=== PATIENT | male | born 1965 | race Caucasian/White ===

== ENCOUNTER 2021-02-13 10:59 | Outpatient (REF) | payer OTHER, SELFPAY ==
[2021-02-13 13:56] LABS: MANUAL DIFF FLAG NO
[2021-02-13 14:02] LABS: Basophils Absolute Auto 0.1 X10*3/uL (0.0-0.2); Basophils Percent Auto 1.2 % (0-2); Eosinophils Absolute Auto 0.3 X10*3/uL (0.0-0.4); Eosinophils Percent Auto 3.3 % (0-4); Hematocrit 49.8 % (42-52); Imm Gran Abs Auto 0.03 X10*3/uL (0.00-0.03); Imm Gran Pct Auto 0.4 % (0.0-0.4); Lymphocytes Absolute Auto 2.2 X10*3/uL (1.2-4.9); Mean Corpuscular HGB Conc 34.1 g/dl (31.0-36.0); Mean Corpuscular Hemoglobin 32.6 pg (27.0-33.0); Mean Corpuscular Volume 95.6 fL (80-98); Mean Platelet Volume 9.6 fL (9.4-12.4); Monocytes Absolute Auto 0.7 X10*3/uL (0.1-1.2); Monocytes Percent Auto 8.9 % (2-11); Neutrophils Absolute Auto 4.3 X10*3/uL (2.0-8.3); Neutrophils Percent Auto 57.2 % (45-73); Platelet Count 187 X10*3/uL (160-400); Red Blood Count 5.21 X10*6/uL (4.60-5.80); Red Cell Distribution Width 13.2 % (11.0-16.0); White Blood Count 7.5 X10*3/uL (4.8-10.8)
[2021-02-13 14:18] LABS: Anion Gap 12 (12-20); Blood Urea Nitrogen 19 mg/dL (9-16); Calcium 8.8 mg/dL (8.4-10.2); Carbon Dioxide 23 mmol/L (22-29); Chloride 109 mmol/L (96-108); Estimated Glomerular Filt Rate 37; Potassium 4.2 mmol/L (3.3-5.1); Sodium 140 mmol/L (135-145)
[2021-02-13 14:47] LABS: Creatinine Urine 42.01 mg/dL; Protein/Creatinine Ratio, Ur 0.43 (<0.2); Total Protein Urine Random 18 mg/dL (<12)
== END 2021-02-13 11:00 | disposition home or self-care (01) ==
LOC: HO.10HDL 10:59
PROVIDERS: Visit Provider Internal Medicine Hypertension Specialist
DX: N18.30 Chronic kidney disease, stage 3 unspecified (principal); R80.9 Proteinuria, unspecified
CPT/HCPCS: 36415; 80051; 82310; 82565; 84156; 84520; 85025

== ENCOUNTER 2022-01-07 13:19 | Outpatient (REF) | payer OTHER, SELFPAY ==
[2022-01-07 14:13] LABS: Anion Gap 14 (12-20); Blood Urea Nitrogen 19 mg/dL (9-16); Calcium 9.4 mg/dL (8.4-10.2); Carbon Dioxide 25 mmol/L (22-29); Chloride 105 mmol/L (96-108); Estimated Glomerular Filt Rate 32; Potassium 4.3 mmol/L (3.3-5.1); Sodium 140 mmol/L (135-145)
[2022-01-07 14:53] LABS: Appearance Urine Clear; Color Urine Yellow; Glucose Urine UA Negative (Negative); Leukocyte Esterase Urine Moderate (2+) (Negative); Nitrite Urine Negative (Negative); Urine Blood Trace (Negative); Urine Ketones Negative (Negative); Urine Protein 30 (1+) mg/dL (Neg-Trace)
[2022-01-07 15:01] LABS: Bacteria Urine Trace (None Seen); Hyaline Casts Urine 0-2 /LPF (0-2); Squamous Epithelial Cell Urine 0-2 /HPF (0-2); UACC Culture Trigger YES; WBC Urine 21-50 /HPF (0-5)
== END 2022-01-07 13:20 | disposition home or self-care (01) ==
LOC: HO.10HDL 13:19
PROVIDERS: Visit Provider Internal Medicine Hypertension Specialist
DX: N18.32 Chronic kidney disease, stage 3b (principal)
CPT/HCPCS: 36415; 80051; 81001; 81003; 82310; 82565; 84520; 87086

== ENCOUNTER 2023-03-29 10:40 | Outpatient (AMB) | payer OTHER, SELFPAY ==
--- NOTE | 2023-03-29 10:54 | HO.NEPHOV ---
HPI HPI Comments History of Present Illness Details Jero is a pleasant middle-aged man with a history of HIV and nephrolithiasis. He has CKD 3 with baseline creatinine of around 2.0. He also has mitral valve prolapse with regurgitation is being followed closely by Cardiology. He has no complaints today. No issues with renal stones recently. Vital Signs 03/29/23 10:56 Height 5 ft 10 in Weight 176 lb 4 oz BMI 25.3 BP 100/60 Blood Pressure Location Lt brachial Position Sitting Pulse 68 Pulse Source Pulse Oximeter Pulse Oximetry (%) 99 Oxygen Delivery Method Room Air Physical Exam Vital Signs: Last Vital Signs Pulse 68 03/29/23 10:56 BP 100/60 03/29/23 10:56 Pulse Ox 99 03/29/23 10:56 Oxygen Delivery Method Room Air 03/29/23 10:56 BMI result Body Mass Index 25.3 Const General: comfortable Nutritional Appearance: well nourished Orientation/consciousness: patient oriented x3 HEENT Head: No normal to inspection Mouth: moist mucous membranes Neck Neck: Yes supple and Yes no JVD Resp Auscultation: clear to auscultation bilaterally, no rales and rub present Cardio Jugular venous distension: no JVD Palpation: no palpable S3 and no palpable S4 Heart sounds: no rubs GI Palpation (GI): Soft to palpation and nontender Percussion: No Fluid wave present General: Yes no CVA tenderness Back/Spine/Pelvis Back: no CVA tenderness Skin General skin exam: no rashes or lesions noted Neuro General: patient oriented x3 Extrem General: Yes no pedal edema and No clubbing Results Reviewed Results Reviewed: Recent creatinine 2.0. Urine protein creatinine ratio 0.43 in August 2022. Assessment & Plan Assessment & Plan (1) CKD (chronic kidney disease) stage 3, GFR 30-59 ml/min: Code(s): N18.30 - Chronic kidney disease, stage 3 unspecified Plan: CKD 3 in a setting of longstanding HIV and nephrolithiasis. Renal function has been stable. He has minimal proteinuria. At this point is no indication for biopsy. Encouraged him to increase fluid intake. Continue to avoid nephrotoxic agents. Continue with ARB for renal protection. We will continue monitor urine protein creatinine excretion and serum creatinine. Blood pressure is acceptable. No evidence of anemia. In fact he has mild polycythemia. Mitral valve prolapse. Being followed by Cardiology. He might require valve surgery. We will follow along with the team. Orders: Orders Creatinine 11 Months N18.30 - Chronic kidney disease, stage 3 unspecified UA and rflx microscopic 11 Months N18.30 - Chronic kidney disease, stage 3 unspecified Creatinine Urine 11 Months N18.30 - Chronic kidney disease, stage 3 unspecified Total Protein Urine Random 11 Months N18.30 - Chronic kidney disease, stage 3 unspecified Electrolytes 11 Months N18.30 - Chronic kidney disease, stage 3 unspecified Blood Urea Nitrogen 11 Months N18.30 - Chronic kidney disease, stage 3 unspecified Calcium 11 Months N18.30 - Chronic kidney disease, stage 3 unspecified Complete Blood Count no Diff 11 Months N18.30 - Chronic kidney disease, stage 3 unspecified Coding Level of Care Code Est Pt Level 4 (85670) Diagnoses CKD (chronic kidney disease) stage 3, GFR 30-59 ml/min N18.30
[2023-03-29 10:56] VITALS: BP 100/60; PULSE 68; O2SAT 99; BMI 25.3
== END 2023-03-29 11:13 | disposition home or self-care (01) ==
PROVIDERS: PCP Internal Medicine; Visit Provider Internal Medicine Hypertension Specialist
DX: N18.30 Chronic kidney disease, stage 3 unspecified (principal); B20 Human immunodeficiency virus [HIV] disease; I34.1 Nonrheumatic mitral (valve) prolapse; Z87.442 Personal history of urinary calculi
CPT/HCPCS: 99214

== ENCOUNTER → 2023-03-29 10:40 | Outpatient (BNVA) | payer OTHER, SELFPAY | PROVIDERS: PCP Internal Medicine; Visit Provider Internal Medicine Hypertension Specialist | DX: N18.30 Chronic kidney disease, stage 3 unspecified (principal) | CPT/HCPCS: 99212 ==

== ENCOUNTER 2024-03-27 10:43 | Outpatient (AMB) | payer OTHER, SELFPAY ==
--- NOTE | 2024-03-27 10:46 | HO.NEPHOV_ITS ---
Vital Signs 03/27/24 10:47 Height 5 ft 10 in Weight 175 lb BMI 25.1 BP 112/72 Blood Pressure Location Lt brachial Position Sitting Pulse 61 Pulse Source Pulse Oximeter Pulse Oximetry (%) 96 Oxygen Delivery Method Room Air Intake Visit Reasons: 1Y follow up/ LVM Bartacker Required: No Accompanied by: Self / Same As Patient Allergies Sulfa (Sulfonamide Antibiotics) Allergy (Severe, Verified 03/27/24 10:49) siezure Medication List - Last Reconciled 03/27/24 by Jun Abarca MD aspirin 81 mg PO DAILY atorvastatin 80 mg PO DAILY dolutegravir-lamivudine 50-300 mg (Dovato) 1 tab PO DAILY metoprolol succinate ER 50 mg PO DAILY tadalafil 20 mg PO DAILY PRN HPI Comments Details: Jero is a pleasant middle-aged man with a history of HIV and nephrolithiasis. He has CKD 3 with baseline creatinine of around 2.0. He also has mitral valve prolapse with regurgitation is being followed closely by Cardiology. He has no complaints today. No issues with renal stones recently. 03/27/24 s/p MV repair in August 2023 Doing well Cr stable at 2.04 [facility] Surgical History (Updated 03/27/24 @ 10:48 by JO-ANN Bernard) History of open heart surgery (~08/2023) Physical Exam Vital Signs: Last Vital Signs Pulse 61 03/27/24 10:47 BP 112/72 03/27/24 10:47 Pulse Ox 96 03/27/24 10:47 Oxygen Delivery Method Room Air 03/27/24 10:47 BMI result Body Mass Index 25.1 Const General: comfortable Nutritional Appearance: well nourished Orientation/consciousness: patient oriented x3 HEENT Head: No normal to inspection Mouth: moist mucous membranes Neck Neck: Yes supple and Yes no JVD Resp Auscultation: clear to auscultation bilaterally and no rales Cardio Jugular venous distension: no JVD Palpation: no palpable S3 and no palpable S4 Heart sounds: no rubs GI Palpation (GI): Soft to palpation and nontender Percussion: No Fluid wave present General: Yes no CVA tenderness Back/Spine/Pelvis Back: no CVA tenderness Skin General skin exam: no rashes or lesions noted Neuro General: patient oriented x3 Extrem General: Yes no pedal edema and No clubbing Results Reviewed Nephrology Results: Hgb 17.0 g/dl (14.0-18.0) 02/13/21 WBC 7.5 X10*3/uL (4.8-10.8) 02/13/21 Plt Count 187 X10*3/uL (160-400) 02/13/21 Sodium 140 mmol/L (135-145) 01/07/22 Potassium 4.3 mmol/L (3.3-5.1) 01/07/22 Chloride 105 mmol/L (96-108) 01/07/22 Carbon Dioxide 25 mmol/L (22-29) 01/07/22 BUN 19 mg/dL (9-16) H 01/07/22 Creatinine 2.15 mg/dL (0.5-1.4) H 01/07/22 Calcium 9.4 mg/dL (8.4-10.2) 01/07/22 Phosphorus 3.3 MG/DL (2.7-4.5) 02/11/20 Urine Protein 30 (1+) mg/dL (Neg-Trace) H 01/07/22 Urine Creatinine 42.01 mg/dL 02/13/21 Protein/Creatinin Ratio 0.43 (<0.2) H 02/13/21 Assessment & Plan Assessment & Plan (1) CKD (chronic kidney disease) stage 3, GFR 30-59 ml/min: Code(s): N18.30 - Chronic kidney disease, stage 3 unspecified Category: Medical Plan: .CKD 3 in a setting of longstanding HIV and nephrolithiasis. Renal function has been stable. Creatinine is 2.05 as of 04/04/2024 He has minimal proteinuria. At this point is no indication for biopsy. Encouraged him to increase fluid intake. Continue to avoid nephrotoxic agents. . We will continue monitor urine protein creatinine excretion and serum creatinine. Blood pressure is acceptable. Polycythemia. Hemoglobin 18.8. We will defer to PCP Mitral valve prolapse. Status post repair in August 2023 Being followed by Cardiology. . Orders: Orders Blood Urea Nitrogen 1 Year N18.30 - Chronic kidney disease, stage 3 unspecified, N18.4 - Chronic kidney disease, stage 4 (severe) Creatinine 1 Year N18.30 - Chronic kidney disease, stage 3 unspecified Total Protein Urine Random 1 Year N18.30 - Chronic kidney disease, stage 3 unspecified Creatinine Urine 1 Year N18.30 - Chronic kidney disease, stage 3 unspecified UA and rflx microscopic 1 Year N18.30 - Chronic kidney disease, stage 3 unspecified Complete Blood Count no Diff 1 Year N18.30 - Chronic kidney disease, stage 3 unspecified Coding Level of Care Code Est Pt Level 4 (72180) Diagnoses CKD (chronic kidney disease) stage 3, GFR 30-59 ml/min N18.30
[2024-03-27 10:47] VITALS: BP 112/72; PULSE 61; O2SAT 96; BMI 25.1
== END 2024-03-27 11:06 | disposition home or self-care (01) ==
PROVIDERS: PCP Internal Medicine; Visit Provider Internal Medicine Hypertension Specialist
DX: N18.30 Chronic kidney disease, stage 3 unspecified (principal)
CPT/HCPCS: 99214

== ENCOUNTER → 2024-03-27 10:43 | Outpatient (BNVA) | payer OTHER, SELFPAY | PROVIDERS: PCP Internal Medicine; Visit Provider Internal Medicine Hypertension Specialist | DX: N18.30 Chronic kidney disease, stage 3 unspecified (principal) | CPT/HCPCS: 99212 ==

== ENCOUNTER 2025-02-18 14:32 | Outpatient (AMB) | payer OTHER, SELFPAY ==
[2025-02-18 14:34] VITALS: BP 92/66; PULSE 63; O2SAT 98; BMI 25.4
--- NOTE | 2025-02-18 14:34 | HO.NEPHOV ---
Vital Signs 02/18/25 14:34 Height 5 ft 10 in Weight 177 lb BMI 25.4 BP 92/66 Blood Pressure Location Lt brachial Position Sitting Pulse 63 Pulse Source Pulse Oximeter Pulse Oximetry (%) 98 Oxygen Delivery Method Room Air Intake Visit Reasons: Jacome F/U week of 01/09 Chief Electrician Required: No Accompanied by: Self / Same As Patient Allergies Sulfa (Sulfonamide Antibiotics) Allergy (Severe, Verified 02/18/25 14:35) aspirus [facility] Medication List - Last Reconciled 02/18/25 by Jun Abarca MD aspirin 81 mg PO DAILY atorvastatin 80 mg PO DAILY dolutegravir-lamivudine 50-300 mg (Dovato) 1 tab PO DAILY metoprolol succinate ER 50 mg PO DAILY tadalafil 20 mg PO DAILY PRN tamsulosin 0.4 mg PO DAILY HPI Comments Details: Jero is a pleasant middle-aged man with a history of HIV and nephrolithiasis. He has CKD 3 with baseline creatinine of around 2.0. He also has mitral valve prolapse with regurgitation is being followed closely by Cardiology. He has no complaints today. No issues with renal stones recently. 03/27/24 s/p MV repair in August 2023 Doing well Cr stable at 2.04 02/18/25 - The patient is a 59-year-old male here for follow up regarding CKD. Recently hospitalized for E coli UTI. - Hospitalized for two days, received IV antibiotics and fluids. - PICC line placed for continued home antibiotic therapy. - Experienced fever and heavy sweating prior to admission. - History of and mitral valve prolapse, managed with metoprolol. - Recent lab work showed proteinuria attributed to infection. - Creatinine level returned to baseline post-infection. Of 2.10 [facility] Surgical History History of open heart surgery (~08/2023) Physical Exam Vital Signs: Last Vital Signs Pulse 63 02/18/25 14:34 BP 92/66 02/18/25 14:34 Pulse Ox 98 02/18/25 14:34 Oxygen Delivery Method Room Air 02/18/25 14:34 BMI result Body Mass Index 25.4 Const General: comfortable Nutritional Appearance: well nourished Orientation/consciousness: patient oriented x3 HEENT Head: No normal to inspection Mouth: moist mucous membranes Neck Neck: Yes supple and Yes no JVD Resp Auscultation: clear to auscultation bilaterally and no rales Cardio Jugular venous distension: no JVD Palpation: no palpable S3 and no palpable S4 Heart sounds: no rubs GI Palpation (GI): Soft to palpation and nontender Percussion: No Fluid wave present General: Yes no CVA tenderness Back/Spine/Pelvis Back: no CVA tenderness Skin General skin exam: no rashes or lesions noted Neuro General: patient oriented x3 Extrem General: Yes no pedal edema and No clubbing Results Reviewed Results Reviewed: January 2025 Serum creatinine 2.10 Nephrology Results: Hgb, (14.0-18.0) 17.0 g/dl 02/13/21 WBC, (4.8-10.8) 7.5 X10*3/uL 02/13/21 Plt Count, (160-400) 187 X10*3/uL 02/13/21 Sodium, (135-145) 140 mmol/L 01/07/22 Potassium, (3.3-5.1) 4.3 mmol/L 01/07/22 Chloride, (96-108) 105 mmol/L 01/07/22 Carbon Dioxide, (22-29) 25 mmol/L 01/07/22 BUN, (9-16) 19 mg/dL H 01/07/22 Creatinine, (0.5-1.4) 2.15 mg/dL H 01/07/22 Calcium, (8.4-10.2) 9.4 mg/dL Δ 01/07/22 Phosphorus, (2.7-4.5) 3.3 MG/DL 02/11/20 Urine Protein, (Neg-Trace) 30 (1+) mg/dL H 01/07/22 Urine Creatinine 42.01 mg/dL 02/13/21 Protein/Creatinin Ratio, (<0.2) 0.43 H 02/13/21 Assessment & Plan Assessment & Plan (1) CKD (chronic kidney disease) stage 3, GFR 30-59 ml/min: Code(s): N18.30 - Chronic kidney disease, stage 3 unspecified Category: Medical Plan: .CKD 3 in a setting of longstanding HIV and nephrolithiasis. Renal function has been stable. Creatinine is 2.10 as of January 2025 He has minimal proteinuria. No monoclonal proteins identified recently. At this point is no indication for biopsy. Encouraged him to increase fluid intake. Continue to avoid nephrotoxic agents. . We will continue monitor urine protein creatinine excretion and serum creatinine. Blood pressure is rather low but asymptomatic Polycythemia. Hemoglobin was 18.8. Currently at 16.2 We will defer to PCP Mitral valve prolapse. Status post repair in August 2023 Being followed by Cardiology. History of renal stones has a follow up with the urologist. No changes were made today. I will be happy to follow him along with the team. . Orders: Orders Basic Metabolic Panel 1 Year N18.30 - Chronic kidney disease, stage 3 unspecified Creatinine Urine 1 Year N18.30 - Chronic kidney disease, stage 3 unspecified Total Protein Urine Random 1 Year N18.30 - Chronic kidney disease, stage 3 unspecified UA and rflx microscopic 1 Year N18.30 - Chronic kidney disease, stage 3 unspecified Coding Level of Care Code Est Pt Level 4 (45239) Diagnoses CKD (chronic kidney disease) stage 3, GFR 30-59 ml/min N18.30
--- OUTSIDE RECORDS SUMMARY | 2025-02-18 16:58 | XMS_ITS | Clinical Summary ---
Author Organization [address] Address [address] [place] [address] Phone Care Team Providers Care Clinical Biostatistics Director Name Role Phone Physician, Pcp Unknown Primary Care Provider Nubia vailable Encounters Date Type Department Care Team Description 01/31/2025 Lab Requisition [facility] [address] [place] [phone] Cynthia Solitario MD Unspecified abnormal cytological findings in specimens from anus 11/28/2024 Lab Requisition [facility] [address] [place] [phone] Cynthia Solitario MD Unspecified abnormal cytological findings in specimens from anus 11/27/2024 Lab Requisition [facility] [address] [place] [phone] Cynthia Solitario MD Contact with and (suspected) exposure to infections with a predominantly sexual mode of transmission; Unspecified abnormal cytological findings in specimens from anus from Last 3 Months Social History Tobacco Use Types Packs/Day Years Used Date Smoking Tobacco: Never Assessed Sex and Gender Information Value Date Recorded Sex Assigned at Not on file Legal Sex Male 10:25 AM EST Gender Identity Not on file Sexual Orientation Not on file Plan of Treatment Health Maintenance Due Date Last Done Comments Colorectal Cancer Screening: Colonoscopy 1965 Zoster Vaccines (1 of 2) 2014 Depression Screening 05/16/2024 Cholesterol Screening (Lipid Panel) 09/28/2024 HIV Screening 09/28/2024 Hepatitis C Screening 09/28/2024 Social Influencers of Health Screening 09/28/2024 COVID-19 Vaccine ( season) 2025 02/10/2022, 03/09/2021, 07/31/2020, Additional history exists Influenza Vaccine (#1) 2025 2, 02/10/2021, 01/24/2020, Additional history exists DTaP,Tdap,and Td Vaccines (4 - Td or Tdap) 02/24/2031 02/24/2021, 10/27/2018, 12/27/1990 RSV Immunization Adult Patients (1 - 1-dose 75+ series) 09/27/2039 MMR Vaccines Aged Out 12/27/1990 No longer eligi ble based on patient's age to complete this topic Hepatitis A Vaccines Aged Out 11/13/2002, 05/08/20 02 No longer eligible based on patient's age to complete this topic HPV Vaccines Aged Out 06/22/2013, 05/04/2013 No lo nger eligible based on patient's age to complete this topic Hepatitis B Vaccines Completed 04/14/2016, 09/29/2015, 08/28/2015, Additional history exists Pneumococcal Vaccine: 50+ Years Completed 07/08/2016, 08/28/2015, 07/30/2015, Additional history exists Meningococcal ACWY Vaccine Aged Out 06/27/2018 N o longer eligible based on patient's age to complete this topic HIB Vaccines Aged Out No longer eligi ble based on patient's age to complete this topic IPV Vaccines Aged Out No longer eligi ble based on patient's age to complete this topic Meningococcal B Vaccine Aged Out No l onger eligible based on patient's age to complete this topic RSV Immunization Patients Under 20 months Aged Out No longer eligible based on patient's age to complete this topic Varicella Vaccines Aged Out No longer eligible based on patient's age to complete this topic Procedures Procedure Name Priority Date/Time Associated Diagnosis Comments THINPREP CYTOLOGY WITH HPV, ANAL Routine 01/29/2025 12:00 AM EDT Unspecified abnormal cytological findings in specimens from anus NON-GYNECOLOGIC CYTOLOGY Routine 01/29/2025 12:00 AM EDT Unspecified abnormal cytological findings in specimens from anus NON-GYNECOLOGIC CYTOLOGY Routine 11/29/2024 3:57 PM EDT Unspecified abnormal cytological findings in specimens from anus CHLAMYDIA TRACHOMATIS AND NEISSERIA GONORRHOEAE PCR Routine 11/27/2024 12:00 AM EDT Contact with and (suspected) exposure to infections with a predominantly sexual mode of transmission Unspecified abnormal cytological findings in specimens from anus from Last 3 Months Results * Thinprep cytology with HPV, anal (01/29/2025 12:00 AM EDT) Scan Result See Scanned Result 02/07/2025 9:19 AM EDT EXTERNAL LAB (NON-INTERFAC ED) Brushing/Spatula Anal structure / Unknown 01/29/2025 01/31/2025 10:36 AM EDT us Cynthia Solitario MD LAB PATHOLOGY ORDERABLES Final Result EXTERNAL LAB (NON-INTERFACED) * Non-gynecologic cytology (01/29/2025 12:00 AM EDT) Only the most recent of2 resultswithin the time period is included. Final Diagnosis Specimen sent to [facility] for Anal cytology with HPV CoTest. Their interpretation is as follows: Anal, swab (ThinPrep): Specimen processed and examined but unsatisfactory for evaluation of epithelial abnormality because of: Scant cellularity. High Risk HPV testing results are POSITIVE. See specific genotype results below. HPV with Genotyping, PCR, ThinPrep: HPV High Risk Type 16, PCR: INVALID HPV High Risk Type 18, PCR: INVALID HPV other High Risk types, PCR: POSITIVE Other High Risk HPV types include: 31, 33, 35, 39, 45, 51, 52, 56, 58, 59, 66, and 68 Report signed electronically by: Jay Thomas MD on 06 Feb 2025 at 16:01 at [facility], [address] [place] [address] (CLIA [id number]) Disclaimer This test has been modified from the weed control inspector's instructions. Its performance characteristics were determined by [facility] in a manner consistent with CLIA requirements. This test has not been cleared or approved by the U.S. Food and Drug Administration Resulted 05 Feb 2025 at 11:34 by [facility], [address] [facility] (CLIA [id number]) Full report attached. 02/14/2025 10:36 AM EDT [facility] at 1036 EDT Gross Description A. Anus, : Received labeled with the patient's name and information is a ThinPrep vial which is submitted to [facility] in [place], [place] for analysis. 02/14/2025 10:36 AM EDT [facility] Disclaimer Unless otherwise specified, all tissue is 10% NB formalin fixed and paraffin embedded. Technical cytopathology services provided by [facility], at [address] [place] [id number] (CLIA # [id number]/Emily Fishman MD, Mail Officer.) 02/14/2025 10:36 AM EDT [facility] Brushing/Spatula Anal structure / Unknown 01/29/2025 01/31/2025 10:32 AM EDT Cynthia Solitario MD LAB CYTOLOGY ORDERABLES F inal Result Performing Organization Address [facility]/State/[facility] Co de Phone Number [facility] [address] [place] [address], * Chlamydia trachomatis and Neisseria gonorrhoeae molecular study (11/27/2024 12:00 AM EDT) Neisseria gonorrhoeae PCR Negative Negative LAB MOLECULAR DIAGNOSTICS METHOD 11/28/2024 9:35 AM EDT [facility] Chlamydia trachomatis PCR Negative Negative LAB MOLECULAR DIAGNOSTICS METHOD 11/28/2024 9:35 AM EDT [facility] Swab Topography unknown / Unknown 11/27/2024 11/27/2024 7:05 PM EDT Cynthia Solitario MD LAB MICROBIOLOGY - GENERA L ORDERABLES Final Result [facility] [place] ([facility] [address] [place] [address], [place] [phone] from Last 3 Months Insurance [facility] Care Teams Clinical Biostatistics Director Relationship Specialty Start Date End Date Physician, Pcp Unknown PCP - General 11/28/24
--- OUTSIDE RECORDS SUMMARY | 2025-02-18 16:58 | XMS_ITS | Encounter Summary ---
Author Organization [facility] Address [address] [place] [address] Care Team Providers Care Appliance Painter And Refinisher Name Role Phone Physician, Pcp Unknown Primary Care Provider Nubia vailable Encounter Details Date Type Department Care Team (Late st Contact Info) Description 01/31/2025 Lab Requisition [facility] [address] [place] [address] Cynthia Solitario MD [address] [place], [place] [phone] Unspecified abnormal cytological findings in specimens from anus Social History Tobacco Use Types Packs/Day Years Used Date Smoking Tobacco: Never Assessed Sex and Gender Information Value Date Recorded Sex Assigned at Not on file Legal Sex Male 10:25 AM EST Gender Identity Not on file Sexual Orientation Not on file documented as of this encounter Plan of Treatment Not on file documented as of this encounter Procedures Procedure Name Priority Date/Time Associated Diagnosis Comments THINPREP CYTOLOGY WITH HPV, ANAL Routine 01/29/2025 12:00 AM EDT Unspecified abnormal cytological findings in specimens from anus NON-GYNECOLOGIC CYTOLOGY Routine 01/29/2025 12:00 AM EDT Unspecified abnormal cytological findings in specimens from anus documented in this encounter Results * Thinprep cytology with HPV, anal (01/29/2025 12:00 AM EDT) Scan Result See Scanned Result 02/07/2025 9:19 AM EDT EXTERNAL LAB (NON-INTERFAC ED) Brushing/Spatula Anal structure / Unknown 01/29/2025 01/31/2025 10:36 AM EDT us Cynthia Solitario MD LAB PATHOLOGY ORDERABLES Final Result EXTERNAL LAB (NON-INTERFACED) * Non-gynecologic cytology (01/29/2025 12:00 AM EDT) Final Diagnosis Specimen sent to [facility] for Anal cytology with HPV CoTest. Their [...] on 06 Feb 2025 at 16:01 at [facility], [address] [place] [address] (CLIA [id number]) Disclaimer This test has been modified from the clinical data management director's instructions. Its performance characteristics were determined by [facility] in a manner consistent with CLIA requirements. This test has not been cleared or approved by the U.S. Food and Drug Administration Resulted 05 Feb 2025 at 11:34 by [facility], [address] [facility] (CLIA [id number]) Full report attached. 02/14/2025 10:[address] [facility] at 1036 EDT Gross Description A. Anus, : Received labeled with the patient's name and information is a ThinPrep vial which is submitted to [facility] in [place], [place] for analysis. 02/14/2025 10:36 AM EDT [facility] Disclaimer Unless otherwise specified, all tissue is 10% NB formalin fixed and paraffin embedded. Technical cytopathology services provided by [facility], at [address] [facility], [place] [address] (CLIA # [id number]/Emily Fishman MD, Hat Body Inspector.) 02/14/2025 10:36 AM EDT [facility] Brushing/Spatula Anal structure / Unknown 01/29/2025 01/31/2025 10:32 AM EDT us Cynthia Solitario MD LAB CYTOLOGY ORDERABLES F inal Result [facility] [address] [place] [address], documented in this encounter Visit Diagnoses Diagnosis Unspecified abnormal cytological findings in specimens from anus documented in this encounter Care Teams Appliance Painter And Refinisher Relationship Specialty Start Date End Date Physician, Pcp Unknown PCP - General 11/28/24 documented as of this encounter
--- OUTSIDE RECORDS SUMMARY | 2025-02-18 16:58 | XMS_ITS | Encounter Summary ---
Author Organization [facility] Address [address] [place] [address] Care Team Providers Care Shoes Salesperson Name Role Phone Physician, Pcp Unknown Primary Care Provider Nubia vailable Encounter Details Date Type Department Care Team (Late st Contact Info) Description 11/28/[address] [facility] - Main Lab [address] [facility] [place] [address] Cynthia Solitario MD [address] [place] [address] Unspecified abnormal cytological findings in specimens from [...] Procedure Name Priority Date/Time Associated Diagnosis Comments NON-GYNECOLOGIC CYTOLOGY Routine 11/29/2024 3:57 PM EDT Unspecified abnormal cytological findings in specimens from anus documented in this encounter Results * Non-gynecologic cytology (11/29/2024 3:57 PM EDT) Final Diagnosis A. Anus, Anal pap, (ThinPrep): Unsatisfactory for evaluation due to scant (nucleated) squamous cellularity. 11/29/2024 3:57 PM EDT [facility] Specimen A Adequacy Specimen processed and examined, but unsatisfactory for eval of abnormal epithelial 11/29/2024 3:57 PM EDT [facility] Gross Description A. Anus, Anal pap: 1 pap vial received, clear fluid, 1 Thin prep. 11/29/2024 3:57 PM EDT [facility] Disclaimer Unless otherwise specified, all tissue is 10% NB formalin fixed and paraffin embedded. Technical cytopathology services provided by [facility], at [address] [place] [address] (CLIA # [id number]/Emily Fishman MD, Plastic Surgery Specialist.) 11/29/2024 3:57 PM EDT [facility] Brushing/Spatula Anal structure / Unknown 11/28/2024 11:25 AM EDT us Cynthia Solitario MD LAB CYTOLOGY ORDERABLES F inal Result [facility] [address] [place] [address], documented in this encounter Visit Diagnoses Diagnosis Unspecified abnormal cytological findings in specimens from anus documented in this encounter Care Teams Shoes Salesperson Relationship Specialty Start Date End Date Physician, Pcp Unknown PCP - General 11/28/24 documented as of this encounter
--- OUTSIDE RECORDS SUMMARY | 2025-02-18 16:59 | XMS_ITS | Data Portability ---
Author Organization [facility], Main Office Address [address] [place] [address] Care Team Providers [facility] Director Name Role Phone ELADIO MARCELO Infectious Disease ONELIA BENAVIDES Kindergarten Teacher Assistant YAMILETH PEÑA Colorectal Surgeon [phone] TOMI NAVAS Gui Developer VAN GALO Primary Care Provider [phone] JUN BLACKMAN Industrial Accountant Assessment Encounter Date Assessment Date Assessment LastModified by Organization Details LastModified Time 01/16/2025 01/16/2025 Pyelitis with bacteremia -Complete ertapenem course (final dose 01/17/2025). -[facility] nurse to remove PICC line after final dose. -Repeat labs: CBC, CMP, LFTs, urine culture, blood culture, PSA (with counseling to avoid ejaculation/bik ing 48h prior). -Monitor for recurrence of fever, chills, dysuria, or flank pain. Renal calculi / mild BPH -Start tamsulosin. -Encourage hydration. -Referral to urology for further management of renal stones and prostate enlargement. Acute kidney injury (improving) -Recheck renal function (BMP). -Referral to nephrology for follow-up and ongoing monitoring. Elevated LFTs -Suspected secondary to ertapenem. -Recheck LFTs 1 week post-completion of antibiotics. -Monitor for symptoms of hepatitis (jaundice, abdominal pain, dark urine). Follow-up care -Referrals to nephrology, urology, and infectious disease reiterated. -Patient instructed to complete antibiotics, keep upcoming appointments, and seek medical attention if new or worsening symptoms arise. Other conditions -Continue CPAP therapy. -Continue management of atrial fibrillation per current regimen. [email or web address] Not available 01/16/2025 09:39:23 Plan of Treatment Reminders Order Date Submit Date Provider Last Modified By Organization Details Last Modified Time Details Appointments PE EST 2024 09:30A M Van Galo MD Not available Not available Not available Lab CMP, serum or plasma 2024 025 [facility] (Centralized Electronic Ordering - All Locations), Patient Can Go To The Location Of Their Choice, [id number] 01/16/2025 11:54:03 PSA, serum or plasma 2024 025 [facility] (Centralized Electronic Ordering - All Locations), Patient Can Go To The Location Of Their Choice, [address] 02/13/2025 12:06:11 urinalysi s complete, reflex culture 2024 025 [facility] (Centralized [facility] Ordering - All Locations), Patient Can Go To The Location Of Their Choice, [id number] 02/13/2025 12:06:10 CBC w/ auto diff 2024 025 [facility] (Centralized [facility] Ordering - All Locations), Patient Can Go To The Location Of Their Choice, [id number] 02/13/2025 12:06:09 culture, blood 2024 025 [facility] ([facility]ized [facility] Ordering - All Locations), Patient Can Go To The Location Of Their Choice, [id number] 01/31/2025 06:09:25 culture, blood 2024 025 [facility] (Centralized Electronic Ordering - All Locations), Patient Can Go To The Location Of Their Choice, [id number] 01/31/2025 06:09:26 alkaline phosphata se isoenzyme s, serum or plasma 2024 025 [facility] (Centralized Electronic Ordering - All Locations), Patient Can Go To The Location Of Their Choice, [id number] 02/13/2025 12:06:11 gamma-glu tamyl transfera se (ggt), serum 2024 025 [facility] (Centralized Electronic Ordering - All Locations), Patient Can Go To The Location Of Their Choice, 02/13/2025 12:06:13 mitochond rial M2 igg Ab, serum 2024 025 [facility] (Centralized Electronic Ordering - All Locations), Patient Can Go To The Location Of Their Choice, 02/13/2025 12:06:12 vitamin D, 25-hydrox y, total, serum 2024 025 [facility] (Centralized [facility] Ordering - All Locations), Patient Can Go To The Location Of Their Choice, 02/13/2025 12:06:12 magnesium , serum or plasma 2023 024 [facility] ([facility]ized [facility] Ordering - All Locations), Patient Can Go To The Location Of Their Choice, 03/27/2024 08:09:43 lipid panel, serum 2023 024 [facility], [address] [place], [address], 03/27/2024 08:09:42 CBC w/ auto diff 2023 024 [facility], [address] [place], [address], 03/27/2024 08:09:41 TSH, ultra-sen sitive, serum 2023 024 [facility], [address] [place], [address], 03/27/2024 08:09:42 CMP, serum or plasma 2023 024 [facility]Y [facility] ([facility]ized [facility] Ordering - All Locations), Patient Can Go To The Location Of Their Choice, 03/27/2024 08:09:40 Referral [facility]rolog[facility] 2024 [facility], [address] , [place], [address], 01/16/2025 10:39:51 infectiou s disease specialis t referral 2024 025 FADYPavan Marcelo MD, [address] [place], [address], 01/16/2025 10:34:24 general surgeon referral - raised wart that has changed, for follow up. 2023 Sawyer [email or web address] [facility], [address] [place] [address] [address] [address], [place], [address], 05/02/2024 11:18:14 Procedures None recorded. Surgeries None recorded. Imaging None recorded. Medication Orders tamsulosi n 0.4 mg capsule 2024 025 [facility] #[id number], [address] [place], [address], 01/16/2025 09:28:25 Patient TargetsNo targets recorded. Patient Instructions Encounter Date Encounter Id Patient Instructions Last Modified By Organization Details Last Modified Time 09/14/2023 [id number] atrial fibrillation: care instructions [email or web address] Not available 09/14/2023 13:29:45 At today's hospi glenn follow up visit, all current and discharge medications (OTC, herbal therapies, supplements) reviewed and reconciled with patient and or caregiver, including potential side effects, drug interactions, instructions, and the consequences of not taking medication. Reviewed potential barriers to medication adherence, such as side effects from medication or cost of medication. [email or web address] Not available 09/14/2023 13:01:23 03/16/2024 [id number] medical record request* [email or web address] Not available 03/19/2024 15:05:32 atrial fibrillation: care instructions [email or web address] Not available 03/16/2024 09:25:17 01/16/2025 [id number] medicines to sakina id with kidney disease: care instructions [email or web address] Not available 01/16/2025 09:28:18 kidney stone: ca re instructions [email or web address] Not available 01/16/2025 09:28:19 learning about d iet for kidney stone prevention [email or web address] Not available 01/16/2025 09:28:18 acute kidney injury: care instructions [email or web address] Not available 01/16/2025 09:28:18 atrial fibrillation: care instructions [email or web address] Not available 01/16/2025 09:28:18 acquired immunodeficiency syndrome (AIDS): care instructions [email or web address] Not available 01/16/2025 09:28:19 At today's [facility] follow up visit, all current and discharge medications (OTC, herbal therapies, supplements) reviewed and reconciled with patient and or caregiver, including potential side effects, drug interactions, instructions, and the consequences of not taking medication. Reviewed potential barriers to medication adherence, such as side effects from medication or cost of medication. 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 Referring Physician: Van Galo [facility], Encounter Date: 03/16/2024 Urologist Referral for Kidne y stone Referring Physician: Van Galo [facility], Encounter Date: 01/16/2025 Infectious Disease Specialis t Referral for Infection caused by extended spectrum beta-lactamase producing Escherichia coli Referring Physician: Van Galo [facility], Encounter Date: 01/16/2025 Results Created Date Observation Date Name Description Value Unit Range Abnormal Flag Note LastModifiedBy Organization Detail LastModifiedTime 03/26/2003/26/2024 CMP14 (REFL EX HGB A1C) glucose 98 mg/dL 70-99 normal Not Available [facility] ([facility]) [address] [place], [address], 03/27/2024 08:09:40 03/26/20 24 03/26/2024 CMP14 (REFL EX HGB A1C) BUN 20 mg/dL 6-24 normal Not Available [facility] ([facility]) [address] [place], [address], 03/27/2024 08:09:40 03/26/20 24 03/26/2024 CMP14 (REFL EX HGB A1C) creatinine 2.06 mg/dL 0.76-1 .27 above high normal Not Available [facility] ([facility]) [address] [facility], [place], [address], 03/27/2024 08:09:40 03/26/20 24 03/26/2024 CMP14 (REFL EX HGB A1C) eGFR 36 mL/mi n/1.7 3 >59 below low normal Not Available [facility] ([facility]) [address] [facility], [place], [address], 03/27/2024 08:09:40 03/26/20 24 03/26/2024 CMP14 (REFL EX HGB A1C) BUN/creatini ne ratio 10 9-20 normal Not Available [facility] ([facility]) [address] [facility], [place], [address], 03/27/2024 08:09:40 03/26/20 24 03/26/2024 CMP14 (REFL EX HGB A1C) sodium 143 mmol/ L 134-14 4 normal Not Available [facility] ([facility]) [address] [facility], [place], [address], 03/27/2024 08:09:40 03/26/20 24 03/26/2024 CMP14 (REFL EX HGB A1C) potassium 4.3 mmol/ L 3.5-5. 2 normal Not Available [facility] ([facility]) [address] [place], [address], 03/27/2024 08:09:40 03/26/20 24 03/26/2024 CMP14 (REFL EX HGB A1C) chloride 106 mmol/ L 96-106 normal Not Available [facility] ([facility]) [address] [place], [address], 03/27/2024 08:09:40 03/26/20 24 03/26/2024 CMP14 (REFL EX HGB A1C) carbon dioxide, total 23 mmol/ L 20-29 normal Not Available [facility] ([facility]) [address] [place], [address], 03/27/2024 08:09:40 03/26/20 24 03/26/2024 CMP14 (REFL EX HGB A1C) calcium 8.6 mg/dL 8.7-10 .2 below low normal Not Available [facility] ([facility]) [address] [place], [address], 03/27/2024 08:09:40 03/26/20 24 03/26/2024 CMP14 (REFL EX HGB A1C) protein, total 6.0 g/dL 6.0-8. 5 normal Not Available [facility] ([facility]) [address] [place], [address], 03/27/2024 08:09:40 03/26/2003/26/2024 CMP14 (REFL EX HGB A1C) albumin 4.0 g/dL 3.8-4. 9 normal Not Available [facility] ([facility]) [address] [place], [address], 03/27/2024 08:09:40 03/26/2003/26/2024 CMP14 (REFL EX HGB A1C) globulin, total 2.0 g/dL 1.5-4. 5 Not Available [facility] ([facility]) [address] [place], [address], 03/27/2024 08:09:40 03/26/2003/26/2024 CMP14 (REFL EX HGB A1C) bilirubin, total 0.9 mg/dL 0.0-1. 2 normal Not Available [facility] ([facility]) [address] [place], [address], 03/27/2024 08:09:40 03/26/20 24 03/26/2024 CMP14 (REFL EX HGB A1C) alkaline phosphatase 82 IU/L 44-121 normal Not Available [facility] ([facility]) [address] [place], [address], 03/27/2024 08:09:40 03/26/20 24 03/26/2024 CMP14 (REFL EX HGB A1C) AST (SGOT) 30 IU/L 0-40 normal Not Available [facility] ([facility]) [address] [place], [address], 03/27/2024 08:09:40 03/26/20 24 03/26/2024 CMP14 (REFL EX HGB A1C) ALT (SGPT) 51 IU/L 0-44 above high normal Not Available [facility] ([facility]) [address] [place], [address], 03/27/2024 08:09:40 03/26/20 24 03/26/2024 CBC WITH DIFFE RENTI AL/PL ATELE T WBC 5.6 x10e3 /uL 3.4-10 .8 normal Not Available [facility] ([facility]) [address] [place], [address], 03/27/2024 08:09:41 03/26/20 24 03/26/2024 CBC WITH DIFFE RENTI AL/PL ATELE T RBC 5.56 x10e6 /uL 4.14-5 .80 normal Not Available [facility] ([facility]) [address] [place], [address], 03/27/2024 08:09:41 03/26/20 24 03/26/2024 CBC WITH DIFFE RENTI AL/PL ATELE T hemoglobin 19.0 g/dL 13.0-1 7.7 above high normal Not Available [facility] ([facility]) [address] [place], [address], 03/27/2024 08:09:41 03/26/20 24 03/26/2024 CBC WITH DIFFE RENTI AL/PL ATELE T hematocrit 56.6 % 37.5-5 1.0 above high normal Not Available [facility] ([facility]) [address] [place], [address], 03/27/2024 08:09:41 03/26/20 24 03/26/2024 CBC WITH DIFFE RENTI AL/PL ATELE T MCV 102 fL 79-97 above high normal Not Available [facility] ([facility]) [address] [facility], [place], [address], 03/27/2024 08:09:41 03/26/20 24 03/26/2024 CBC WITH DIFFE RENTI AL/PL ATELE T MCH 34.2 pg 26.6-3 3.0 above high normal Not Available [facility] ([facility]) [address] [place], [address], 03/27/2024 08:09:41 03/26/20 24 03/26/2024 CBC WITH DIFFE RENTI AL/PL ATELE T MCHC 33.6 g/dL 31.5-3 5.7 normal Not Available [facility] ([facility]) [address] [facility], [place], [address], 03/27/2024 08:09:41 03/26/20 24 03/26/2024 CBC WITH DIFFE RENTI AL/PL ATELE T RDW 14.4 % 11.6-1 5.4 Not Available [facility] ([facility]) [address] [place], [address], 03/27/2024 08:09:41 03/26/20 24 03/26/2024 CBC WITH DIFFE RENTI AL/PL ATELE T platelets 156 x10e3 /uL 150-45 0 normal Not Available [facility] ([facility]) [address] [place], [address], 03/27/2024 08:09:41 03/26/20 24 03/26/2024 CBC WITH DIFFE RENTI AL/PL ATELE T neutrophils 45 % not estab. normal Not Available [facility] ([facility]) [address] [place], [address], 03/27/2024 08:09:41 03/26/20 24 03/26/2024 CBC WITH DIFFE RENTI AL/PL ATELE T lymphs 37 % not estab. normal Not Available [facility] ([facility]) [address] [facility], [place], [address], 03/27/2024 08:09:41 03/26/20 24 03/26/2024 CBC WITH DIFFE RENTI AL/PL ATELE T monocytes 10 % not estab. normal Not Available [facility] ([facility]) [address] [facility], [place], [address], 03/27/2024 08:09:41 03/26/20 24 03/26/2024 CBC WITH DIFFE RENTI AL/PL ATELE T eos 6 % not estab. normal Not Available [facility] ([facility]) [address] [facility], [place], [address], 03/27/2024 08:09:41 03/26/20 24 03/26/2024 CBC WITH DIFFE RENTI AL/PL ATELE T basos 2 % not estab. normal Not Available [facility] ([facility]) [address] [facility], [place], [address], 03/27/2024 08:09:41 03/26/20 24 03/26/2024 CBC WITH DIFFE RENTI AL/PL ATELE T immature cells NURSE WOUND CARE Not Available [facility] ([facility]) [address] [place], [address], 03/27/2024 08:09:41 03/26/20 24 03/26/2024 CBC WITH DIFFE RENTI AL/PL ATELE T neutrophils (absolute) 2.6 x10e3 /uL 1.4-7. 0 normal Not Available [facility] ([facility]) [address] [place], [address], 03/27/2024 08:09:41 03/26/20 24 03/26/2024 CBC WITH DIFFE RENTI AL/PL ATELE T lymphs (absolute) 2.1 x10e3 /uL 0.7-3. 1 normal Not Available [facility] ([facility]) [address] [facility], [place], [address], 03/27/2024 08:09:41 03/26/20 24 03/26/2024 CBC WITH DIFFE RENTI AL/PL ATELE T monocytes(ab solute) 0.6 x10e3 /uL 0.1-0. 9 normal Not Available [facility] ([facility]) [address] [place], [address], 03/27/2024 08:09:41 03/26/20 24 03/26/2024 CBC WITH DIFFE RENTI AL/PL ATELE T eos (absolute) 0.3 x10e3 /uL 0.0-0. 4 normal Not Available [facility] ([facility]) [address] [facility], [place], [address], 03/27/2024 08:09:41 03/26/20 24 03/26/2024 CBC WITH DIFFE RENTI AL/PL ATELE T baso (absolute) 0.1 x10e3 /uL 0.0-0. 2 normal Not Available [facility] ([facility]) [address] [place], [address], 03/27/2024 08:09:41 03/26/20 24 03/26/2024 CBC WITH DIFFE RENTI AL/PL ATELE T immature granulocytes 0 % not estab. Not Available [facility] ([facility]) [address] [place], [address], 03/27/2024 08:09:41 03/26/20 24 03/26/2024 CBC WITH DIFFE RENTI AL/PL ATELE T immature grans (abs) 0.0 x10e3 /uL 0.0-0. 1 Not Available [facility] ([facility]) [address] [place], [address], 03/27/2024 08:09:41 03/26/20 24 03/26/2024 CBC WITH DIFFE RENTI AL/PL ATELE T NRBC NURSE WOUND CARE Not Available [facility] ([facility]) [address] [facility], [place], [address], 03/27/2024 08:09:41 03/26/20 24 03/26/2024 CBC WITH DIFFE RENTI AL/PL ATELE T hematology comments: NURSE WOUND CARE Not Available [facility] ([facility]) [address] [facility], [place], [address], 03/27/2024 08:09:41 03/26/20 24 03/27/2024 LIPID PANEL cholesterol, total 130 mg/dL 100-19 9 normal Not Available [facility] ([facility]) [address] [facility], [place], [address], 03/27/2024 08:09:41 03/26/20 24 03/27/2024 LIPID PANEL triglyceride s 149 mg/dL 0-149 normal Not Available [facility] ([facility]) [address] [facility], [place], [address], 03/27/2024 08:09:41 03/26/20 24 03/27/2024 LIPID PANEL HDL cholesterol 40 mg/dL >39 normal Not Available [facility] ([facility]) [address] [place], [address], 03/27/2024 08:09:41 03/26/20 24 03/27/2024 LIPID PANEL VLDL cholesterol gauri 26 mg/dL 5-40 Not Available [facility] ([facility]) [address] [place], [address], 03/27/2024 08:09:41 03/26/20 24 03/27/2024 LIPID PANEL LDL chol calc ([facility]) 64 mg/dL 0-99 Not Available [facility] ([facility]) [address] [place], [address], 03/27/2024 08:09:41 03/26/2003/27/2024 LIPID PANEL LDL calc comment: NURSE WOUND CARE Not Available [facility] ([facility]) [address] [facility], [place], [address], 03/27/2024 08:09:41 03/26/20 24 03/27/2024 TSH RFX ON ABNOR MAL TO FREE T4 TSH 0.774 uIU/m L 0.450- 4.500 normal Not Available [facility] ([facility]) [address] [facility] [place], [address], 03/27/2024 08:09:42 03/26/2003/27/2024 MAGNE SIUM magnesium 2.4 mg/dL 1.6-2. 3 above high normal Not Available [facility] ([facility]) [address] [facility], [place], [address], 03/27/2024 08:09:43 01/26/2001/31/2025 BLOOD CULTU REBETO blood culture, routine Final report Not Available [facility] ([facility]) [address] [facility], [place], [address], 01/31/2025 06:09:25 01/26/2001/31/2025 BLOOD CULTU REBETO result 1 COMMEN T No aerob ic or anaer obic growt h in five days. Blood volum e colle cted in bottl e(s) was subop timal . Consi catarina recol lecti on to impro ve recov iram. Not Available [facility] ([facility]) [address] [facility], [place], [address], 01/31/2025 06:09:25 01/26/20 25 01/31/2025 BLOOD CULTU REBETO blood culture, routine Final report Not Available [facility] ([facility]) [address] [facility], [place], [address], 01/31/2025 06:09:26 01/26/20 25 01/31/2025 BLOOD CULTU RE, ROUTI NE result 1 COMMEN T No aerob ic or anaer obic growt h in five days. Blood volum e colle cted in bottl e(s) was subop timal . Consi catarina recol lecti on to impro ve recov iram. Not Available [facility] ([facility]) [address] [facility], [place], [address], 01/31/2025 06:09:26 01/26/20 25 01/31/2025 COMP. METAB OLIC PANEL (14) glucose COMMEN T mg/dL Test not perfo rmed. Insuf ficie nt speci men to perfo rm or compl ete alyssa sis. Not Available [facility] ([facility]) [address] [place], [address], 01/31/2025 20:06:16 01/26/20 25 01/31/2025 COMP. METAB OLIC PANEL (14) BUN TNP Test not perfo rmed Not Available [facility] ([facility]) [address] [place], [address], 01/31/2025 20:06:16 01/26/20 25 01/31/2025 COMP. METAB OLIC PANEL (14) creatinine TNP Test not perfo rmed Not Available [facility] ([facility]) [address] [place], [address], 01/31/2025 20:06:16 01/26/20 25 01/31/2025 COMP. METAB OLIC PANEL (14) eGFR NURSE WOUND CARE Not Available [facility] ([facility]) [address] [facility], [place], [address], 01/31/2025 20:06:16 01/26/20 25 01/31/2025 COMP. METAB OLIC PANEL (14) BUN/creatini ne ratio NURSE WOUND CARE Not Available [facility] ([facility]) [address], [place], [address], 01/31/2025 20:06:16 01/26/20 25 01/31/2025 COMP. METAB OLIC PANEL (14) sodium TNP Test not perfo rmed Not Available [facility] ([facility]) [address], [place], [address], 01/31/2025 20:06:16 01/26/20 25 01/31/2025 COMP. METAB OLIC PANEL (14) potassium TNP Test not perfo rmed Not Available [facility] ([facility]) [address], [place], [address], 01/31/2025 20:06:16 01/26/20 25 01/31/2025 COMP. METAB OLIC PANEL (14) chloride TNP Test not perfo rmed Not Available [facility] ([facility]) [address], [place], [address], 01/31/2025 20:06:16 01/26/20 25 01/31/2025 COMP. METAB OLIC PANEL (14) carbon dioxide, total TNP Test not perfo rmed Not Available [facility] ([facility]) [address], [place], [address], 01/31/2025 20:06:16 01/26/20 25 01/31/2025 COMP. METAB OLIC PANEL (14) calcium TNP Test not perfo rmed Not Available [facility] ([facility]) [address], [place], [address], 01/31/2025 20:06:16 01/26/20 25 01/31/2025 COMP. METAB OLIC PANEL (14) protein, total TNP Test not perfo rmed Not Available [facility] ([facility]) [address], [place], [address], 01/31/2025 20:06:16 01/26/20 25 01/31/2025 COMP. METAB OLIC PANEL (14) albumin TNP Test not perfo rmed Not Available [facility] ([facility]) [address] [facility], [place], [address], 01/31/2025 20:06:16 01/26/20 25 01/31/2025 COMP. METAB OLIC PANEL (14) globulin, total NURSE WOUND CARE Not Available [facility] ([facility]) [address] [facility], [place], [address], 01/31/2025 20:06:16 01/26/20 25 01/31/2025 COMP. METAB OLIC PANEL (14) A/G ratio NURSE WOUND CARE Not Available [facility] ([facility]) [address] [facility], [place], [address], 01/31/2025 20:06:16 01/26/20 25 01/31/2025 COMP. METAB OLIC PANEL (14) bilirubin, total TNP Test not perfo rmed Not Available [facility] ([facility]) [address] [facility], [place], [address], 01/31/2025 20:06:16 01/26/20 25 01/31/2025 COMP. METAB OLIC PANEL (14) alkaline phosphatase TNP Test not perfo rmed Not Available [facility] ([facility]) [address] [facility], [place], [address], 01/31/2025 20:06:16 01/26/20 25 01/31/2025 COMP. METAB OLIC PANEL (14) AST (SGOT) TNP Test not perfo rmed Not Available [facility] ([facility]) [address] [facility] [place], [address], 01/31/2025 20:06:16 01/26/20 25 01/31/2025 COMP. METAB OLIC PANEL (14) ALT (SGPT) TNP Test not perfo rmed Not Available [facility] ([facility]) [address] [facility], [place], [address], 01/31/2025 20:06:16 01/26/2001/29/2025 WRITT EN AUTHO RIZAT ION written authorizatio n Commen t Writt en Autho rizat ion Recei dez. Autho rizat ion recei dez from [facility] for Link Reque st on 01-29 Logge d by Karen haro Not Available [facility] ([facility]) [address] [facility], [place], [address], 02/04/2025 14:06:33 01/26/2001/31/2025 WRITT EN AUTHO RIZAT ION written authorizatio n Commen t Writt en Autho rizat ion Recei dez. Autho rizat ion recei dez from [facility] for Link Reque st on 01-31 Logge d by Subhash vidal Not Available [facility] ([facility]) [address] [facility], [place], [address], 01/31/2025 20:06:17 01/26/20 25 01/29/[address] PROBL EM request problem COMMEN T Test not perfo rmed due to the age of this speci men. TEST: 21705 [id number] Retic ulocy te Count Not Available [facility] ([facility]) [address] [facility], [place], [address], 02/04/2025 14:06:34 01/26/20 25 02/04/[address] PROBL EM request problem COMMEN T Test not perfo rmed. Deter iorat ion occur red durin g speci men handl ing. TEST: 79015 8 CMP14 Not Available [facility] ([facility]) [address] [facility], [place], [address], 02/04/2025 10:05:49 01/26/20 25 01/31/[address] PROBL EM request problem COMMEN T Test not perfo rmed. Insuf ficie nt speci men to perfo rm or compl ete alyssa sis. TEST: 14543 0 Comp. Metab olic Panel (14) Not Available [facility] ([facility]) [address] [place], [address], 01/31/2025 20:06:18 01/26/20 25 02/04/2025 CMP14 glucose COMMEN T mg/dL Test not perfo rmed. Deter iorat ion occur red durin g speci men handl ing. Not Available [facility] ([facility]) [address] [place], [address], 02/04/2025 10:05:48 01/26/20 25 02/04/2025 CMP14 BUN TNP Test not perfo rmed Not Available [facility] ([facility]) [address] [place], [address], 02/04/2025 10:05:48 01/26/20 25 02/04/2025 CMP14 creatinine TNP Test not perfo rmed Not Available [facility] ([facility]) [address] [place], [address], 02/04/2025 10:05:48 01/26/20 25 02/04/2025 CMP14 eGFR NURSE WOUND CARE Not Available [facility] ([facility]) [address] [place], [address], 02/04/2025 10:05:48 01/26/20 25 02/04/2025 CMP14 BUN/creatini ne ratio NURSE WOUND CARE Not Available [facility] ([facility]) [address] [place], [address], 02/04/2025 10:05:48 01/26/20 25 02/04/2025 CMP14 sodium TNP Test not perfo rmed Not Available [facility] ([facility]) [address] [place], [address], 02/04/2025 10:05:48 01/26/20 25 02/04/2025 CMP14 potassium TNP Test not perfo rmed Not Available [facility] ([facility]) [address], [place], [address], 02/04/2025 10:05:48 01/26/20 25 02/04/2025 CMP14 chloride TNP Test not perfo rmed Not Available [facility] ([facility]) [address], [place], [address], 02/04/2025 10:05:48 01/26/2002/04/2025 CMP14 carbon dioxide, total TNP Test not perfo rmed Not Available [facility] ([facility]) [address] [facility], [place], [address], 02/04/2025 10:05:48 01/26/20 25 02/04/2025 CMP14 calcium TNP Test not perfo rmed Not Available [facility] ([facility]) [address] [facility], [place], [address], 02/04/2025 10:05:48 01/26/20 25 02/04/2025 CMP14 protein, total TNP Test not perfo rmed Not Available [facility] ([facility]) [address] [facility], [place], [address], 02/04/2025 10:05:48 01/26/2002/04/2025 CMP14 albumin TNP Test not perfo rmed Not Available [facility] ([facility]) [address] [facility], [place], [address], 02/04/2025 10:05:48 01/26/2002/04/2025 CMP14 globulin, total NURSE WOUND CARE Not Available [facility] ([facility]) [address] [facility], [place], [address], 02/04/2025 10:05:48 01/26/20 25 02/04/2025 CMP14 A/G ratio NURSE WOUND CARE Not Availa ble [facility] ([facility]) [address] [place], [address], 02/04/2025 10:05:48 01/26/20 25 02/04/2025 CMP14 bilirubin, total TNP Test not perfo rmed Not Available [facility] ([facility]) [address] [facility], [place], [address], 02/04/2025 10:05:48 01/26/20 25 02/04/2025 CMP14 alkaline phosphatase TNP Test not perfo rmed Not Available [facility] ([facility]) [address] [place], [address], 02/04/2025 10:05:48 01/26/20 25 02/04/2025 CMP14 AST (SGOT) TNP Test not perfo rmed Not Available [facility] ([facility]) [address] [place], [address], 02/04/2025 10:05:48 01/26/20 25 02/04/2025 CMP14 ALT (SGPT) TNP Test not perfo rmed Not Available [facility] ([facility]) [address] [place], [address], 02/04/2025 10:05:48 01/26/20 25 01/29/2025 IMMUN OFIXA TION, SERUM immunoglobul in g, qn, serum COMMEN T mg/dL Test not perfo rmed. Insuf ficie nt speci men to perfo rm or compl ete alyssa sis. Not Available [facility] ([facility]) [address] [place], [address], 02/04/2025 14:06:27 01/26/20 25 01/29/2025 IMMUN OFIXA TION, SERUM immunoglobul in A, qn, serum COMMEN T mg/dL Test not perfo rmed. Insuf ficie nt speci men to perfo rm or compl ete alyssa sis. Not Available [facility] ([facility]) [address] [facility], [place], [address], 02/04/2025 14:06:27 01/26/20 25 01/29/2025 IMMUN OFIXA TION, SERUM immunoglobul in M, qn, serum COMMEN T mg/dL Test not perfo rmed. Insuf ficie nt speci men to perfo rm or compl ete alyssa sis. Not Available [facility] ([facility]) [address] [facility], [place], [address], 02/04/2025 14:06:27 01/26/20 25 02/04/2025 IMMUN OFIXA TION, SERUM immunofixati on result, serum Commen t The immun ofixa tion patte rn appea rs unrem arkab le. Evide nce of monoc lonal prote in is not appar ent. IMMUN OGLOB ULINS WERE UNAVA ILABL E FOR INTER PREAT ION. Not Available [facility] ([facility]) [address] [place], [address], 02/04/2025 14:06:27 01/26/20 25 01/29/2025 FREE K+L LT CHAIN S,QN, S free kappa lt chains,S COMMEN T mg/L Test not perfo rmed. Insuf ficie nt speci men to perfo rm or compl ete alyssa sis. Not Available [facility] ([facility]) [address] [facility], [place], [address], 02/04/2025 14:06:28 01/26/20 25 01/29/2025 FREE K+L LT CHAIN S,QN, S free lambda lt chains,S COMMEN T mg/L Test not perfo rmed. Insuf ficie nt speci men to perfo rm or compl ete alyssa sis. Not Available [facility] ([facility]) [address] [place], [address], 02/04/2025 14:06:28 01/26/2001/29/2025 FREE K+L LT CHAIN S,QN, S kappa/lambda ratio,S COMMEN T Test not perfo rmed. Insuf ficie nt speci men to perfo rm or compl ete alyssa sis. Not Available [facility] ([facility]) [address] [facility], [place], [address], 02/04/2025 14:06:28 01/26/2001/29/2025 VITAM IN B12 AND FOLAT E vitamin B12 COMMEN T pg/mL Test not perfo rmed. Insuf ficie nt speci men to perfo rm or compl ete alyssa sis. Not Available [facility] ([facility]) [address] [facility], [place], [address], 02/04/2025 14:06:29 01/26/2001/29/2025 VITAM IN B12 AND FOLAT E folate (folic acid), serum COMMEN T NG/mL Test not perfo rmed. Insuf ficie nt speci men to perfo rm or compl ete alsysa sis. A serum folat e juan ntrat ion of less than 3.1 ng/mL is consi dered to repre sent clini gauri defic iency . Not Available [facility] ([facility]) [address] [facility], [place], [address], 02/04/2025 14:06:29 01/26/2001/29/2025 HOMOC YST(E )INE homocyst(E)i ne COMMEN T umol/ L Test not perfo rmed. Insuf ficie nt speci men to perfo rm or compl ete alyssa sis. Not Available [facility] ([facility]) [address] [facility], [place], [address], 02/04/2025 14:06:29 01/26/2001/29/2025 METHY LMALO VERONICA ACID, SERUM methylmaloni c acid, serum COMMEN T nmol/ L Test not perfo rmed. Insuf ficie nt speci men to perfo rm or compl ete alyssa sis. Not Available [facility] ([facility]) [address] [facility], [place], [address], 02/04/2025 14:06:30 01/26/20 25 01/29/2025 TSH RFX ON ABNOR MAL TO FREE T4 TSH COMMEN T uIU/m L Test not perfo rmed. Insuf ficie nt speci men to perfo rm or compl ete alyssa sis. Not Available [facility] ([facility]) [address] [facility], [place], [address], 02/04/2025 14:06:30 01/26/20 25 01/29/2025 LDH LDH COMMEN T IU/L Test not perfo rmed. Insuf ficie nt speci men to perfo rm or compl ete alyssa sis. Not Available [facility] ([facility]) [address] [facility], [place], [address], 02/04/2025 14:06:31 01/26/20 25 01/29/2025 HAPTO GLOBI N haptoglobin COMMEN T mg/dL Test not perfo rmed. Insuf ficie nt speci men to perfo rm or compl ete alyssa sis. Not Available [facility] ([facility]) [address] [facility], [place], [address], 02/04/2025 14:06:32 01/26/20 25 01/29/2025 RETIC ULOCY TE COUNT reticulocyte count COMMEN T % Test not perfo rmed due to the age of this speci men. Not Available [facility] ([facility]) [address] [facility], [place], [address], 02/04/2025 14:06:32 01/26/20 25 02/12/[address] PROBL EM request problem COMMEN T Test not perfo rmed. TEST: 30539 [id number] Liver Fract ion: Panel : [id number] Bone Fract ion: Panel : [id number] 1 Intes tinal Frac. : Panel : [id number] CHEMI STRY RESUL TS NEEDE D TO COMPL ETE TESTI NG Not Available [facility] ([facility]) [address] [place], [address], 02/13/2025 12:06:13 01/26/2001/25/2025 CBC WITH DIFFE RENTI AL/PL ATELE T WBC 8.6 x10e3 /uL 3.4-10 .8 normal Not Available [facility] ([facility]) [address] [place], [address], 02/13/2025 12:06:09 01/26/2001/25/2025 CBC WITH DIFFE RENTI AL/PL ATELE T RBC 4.78 x10e6 /uL 4.14-5 .80 normal Not Available [facility] ([facility]) [address] [place], [address], 02/13/2025 12:06:09 01/26/20 25 01/25/2025 CBC WITH DIFFE RENTI AL/PL ATELE T hemoglobin 16.6 g/dL 13.0-1 7.7 normal Not Available [facility] ([facility]) [address] [place], [address], 02/13/2025 12:06:09 01/26/2001/25/2025 CBC WITH DIFFE RENTI AL/PL ATELE T hematocrit 49.6 % 37.5-5 1.0 normal Not Available [facility] ([facility]) [address] [place], [address], 02/13/2025 12:06:09 01/26/2001/25/2025 CBC WITH DIFFE RENTI AL/PL ATELE T MCV 104 fL 79-97 above high normal Not Available [facility] ([facility]) [address] [place], [address], 02/13/2025 12:06:09 01/26/20 25 01/25/2025 CBC WITH DIFFE RENTI AL/PL ATELE T MCH 34.7 pg 26.6-3 3.0 above high normal Not Available [facility] ([facility]) [address] [facility], [place], [address], 02/13/2025 12:06:09 01/26/20 25 01/25/2025 CBC WITH DIFFE RENTI AL/PL ATELE T MCHC 33.5 g/dL 31.5-3 5.7 normal Not Available [facility] ([facility]) [address] [place], [address], 02/13/2025 12:06:09 01/26/20 25 01/25/2025 CBC WITH DIFFE RENTI AL/PL ATELE T RDW 13.3 % 11.6-1 5.4 Not Available [facility] ([facility]) [address] [facility], [place], [address], 02/13/2025 12:06:09 01/26/20 25 01/25/2025 CBC WITH DIFFE RENTI AL/PL ATELE T platelets 276 x10e3 /uL 150-45 0 normal Not Available [facility] ([facility]) [address] [place], [address], 02/13/2025 12:06:09 01/26/20 25 01/25/2025 CBC WITH DIFFE RENTI AL/PL ATELE T neutrophils 56 % not estab. normal Not Available [facility] ([facility]) [address] [place], [address], 02/13/2025 12:06:09 01/26/20 25 01/25/2025 CBC WITH DIFFE RENTI AL/PL ATELE T lymphs 28 % not estab. normal Not Available [facility] ([facility]) [address] [place], [address], 02/13/2025 12:06:09 01/26/20 25 01/25/2025 CBC WITH DIFFE RENTI AL/PL ATELE T monocytes 7 % not estab. normal Not Available [facility] ([facility]) [address] [facility], [place], [address], 02/13/2025 12:06:09 01/26/20 25 01/25/2025 CBC WITH DIFFE RENTI AL/PL ATELE T eos 7 % not estab. normal Not Available [facility] ([facility]) [address] [facility], [place], [address], 02/13/2025 12:06:09 01/26/20 25 01/25/2025 CBC WITH DIFFE RENTI AL/PL ATELE T basos 2 % not estab. normal Not Available [facility] ([facility]) [address] [place], [address], 02/13/2025 12:06:09 01/26/20 25 01/25/2025 CBC WITH DIFFE RENTI AL/PL ATELE T immature cells NURSE WOUND CARE Not Available [facility] ([facility]) [address] [place], [address], 02/13/2025 12:06:09 01/26/20 25 01/25/2025 CBC WITH DIFFE RENTI AL/PL ATELE T neutrophils (absolute) 4.9 x10e3 /uL 1.4-7. 0 normal Not Available [facility] ([facility]) [address] [place], [address], 02/13/2025 12:06:09 01/26/20 25 01/25/2025 CBC WITH DIFFE RENTI AL/PL ATELE T lymphs (absolute) 2.4 x10e3 /uL 0.7-3. 1 normal Not Available [facility] ([facility]) [address] [place], [address], 02/13/2025 12:06:09 09/12/20 25 01/25/2025 CBC WITH DIFFE RENTI AL/PL ATELE T monocytes(ab solute) 0.6 x10e3 /uL 0.1-0. 9 normal Not Available [facility] ([facility]) [address] [facility], [place], [address], 02/13/2025 12:06:09 01/26/2001/25/2025 CBC WITH DIFFE RENTI AL/PL ATELE T eos (absolute) 0.6 x10e3 /uL 0.0-0. 4 above high normal Not Available [facility] ([facility]) [address] [facility], [place], [address], 02/13/2025 12:06:09 01/26/20 25 01/25/2025 CBC WITH DIFFE RENTI AL/PL ATELE T baso (absolute) 0.2 x10e3 /uL 0.0-0. 2 normal Not Available [facility] ([facility]) [address] [facility], [place], [address], 02/13/2025 12:06:09 01/26/20 25 01/25/2025 CBC WITH DIFFE RENTI AL/PL ATELE T immature granulocytes 0 % not estab. Not Available [facility] ([facility]) [address] [facility], [place], [address], 02/13/2025 12:06:09 01/26/20 25 01/25/2025 CBC WITH DIFFE RENTI AL/PL ATELE T immature grans (abs) 0.0 x10e3 /uL 0.0-0. 1 Not Available [facility] ([facility]) [address] [place], [address], 02/13/2025 12:06:09 01/26/20 25 01/25/2025 CBC WITH DIFFE RENTI AL/PL ATELE T NRBC NURSE WOUND CARE Not Available [facility] ([facility]) [address] [place], [address], 02/13/2025 12:06:09 01/26/20 25 01/25/2025 CBC WITH DIFFE DANTE AL/HAYLEY Ricardo hematology comments: NURSE WOUND CARE Not Available [facility] ([facility]) [address] [facility], [place], [address], 02/13/2025 12:06:09 01/26/20 25 01/25/2025 UA/M W/RFL X CULTU RE, ROUTI NE specific gravity 1.008 1.005- 1.030 normal Not Available [facility] ([facility]) [address] [facility], [place], [address], 02/13/2025 12:06:10 01/26/20 25 01/25/2025 UA/M W/RFL X CULTU RE, ROUTI NE pH 6.5 5.0-7. 5 normal Not Available [facility] ([facility]) [address] [facility], [place], [address], 02/13/2025 12:06:10 01/26/20 25 01/25/2025 UA/M W/RFL X CULTU RE, ROUTI NE urine-color Yellow yellow Not Available [facility] ([facility]) [address] [facility], [place], [address], 02/13/2025 12:06:10 01/26/20 25 01/25/2025 UA/M W/RFL X CULTU RE, ROUTI NE appearance Cloudy clear abnormal Not Available [facility] ([facility]) [address] [facility], [place], [address], 02/13/2025 12:06:10 01/26/20 25 01/25/2025 UA/M W/RFL X CULTU RE, ROUTI NE WBC esterase 3+ negati ve abnormal Not Available [facility] ([facility]) [address] [facility], [place], [address], 02/13/2025 12:06:10 01/26/20 25 01/25/2025 UA/M W/RFL X CULTU RE, ROUTI NE protein 1+ negati ve/tra ce abnormal Not Available [facility] ([facility]) [address] [place], [address], 02/13/2025 12:06:10 01/26/20 25 01/25/2025 UA/M W/RFL X CULTU RE, ROUTI NE glucose Negati ve negati ve Not Available [facility] ([facility]) [address] [place], [address], 02/13/2025 12:06:10 01/26/20 25 01/25/2025 UA/M W/RFL X CULTU RE, ROUTI NE ketones Negati ve negati ve Not Available [facility] ([facility]) [address] [place], [address], 02/13/2025 12:06:10 01/26/20 25 01/25/2025 UA/M W/RFL X CULTU RE, ROUTI NE occult blood 2+ negati ve abnormal Not Available [facility] ([facility]) [address] [place], [address], 02/13/2025 12:06:10 01/26/20 25 01/25/2025 UA/M W/RFL X CULTU RE ROUTI NE bilirubin Negati ve negati ve Not Available [facility] ([facility]) [address] [place], [address], 02/13/2025 12:06:10 01/26/20 25 01/25/2025 UA/M W/RFL X CULTU RE, ROUTI NE urobilinogen ,semi-qn 0.2 mg/dL 0.2-1. 0 normal Not Available [facility] ([facility]) [address] [place], [address], 02/13/2025 12:06:10 01/26/20 25 01/25/2025 UA/M W/RFL X CULTU RE, ROUTI NE nitrite, urine Negati ve negati ve Not Available [facility] ([facility]) [address] [facility], [place], [address], 02/13/2025 12:06:10 01/26/20 25 01/25/2025 UA/M W/RFL X CULTU RE, ROUTI NE microscopic examination See below: Micro scopi c was indic ated and was perfo rmed. Not Available [facility] ([facility]) [address] [facility], [place], [address], 02/13/2025 12:06:10 01/26/2001/25/2025 UA/M W/RFL X CULTU RE, ROUTI NE microscopic examination NURSE WOUND CARE Not Available [facility] ([facility]) [address] [facility], [place], [address], 02/13/2025 12:06:10 01/26/20 25 01/26/2025 UA/M W/RFL X CULTU RE, ROUTI NE WBC >30 /hpf 0 - 5 abnormal Not Available [facility] ([facility]) [address] [facility], [place], [address], 02/13/2025 12:06:10 01/26/20 25 01/26/2025 UA/M W/RFL X CULTU RE, ROUTI NE RBC 0-2 /hpf 0 - 2 Not Available [facility] ([facility]) [address] [facility], [place], [address], 02/13/2025 12:06:10 01/26/20 25 01/26/2025 UA/M W/RFL X CULTU RE, ROUTI NE epithelial cells (non renal) None seen /hpf 0 - 10 Not Available [facility] ([facility]) [address] [facility], [place], [address], 02/13/2025 12:06:10 01/26/20 25 01/26/2025 UA/M W/RFL X CULTU RE, ROUTI NE epithelial cells (renal) NURSE WOUND CARE Not Available [facility] ([facility]) [address] [facility], [place], [address], 02/13/2025 12:06:10 01/26/20 25 01/26/2025 UA/M W/RFL X CULTU RE, ROUTI NE casts None seen /lpf none seen Not Available [facility] ([facility]) [address] [facility], [place], [address], 02/13/2025 12:06:10 01/26/2001/26/2025 UA/M W/RFL X CULTU RE, ROUTI NE cast type NURSE WOUND CARE Not Available [facility] ([facility]) [address] [facility], [place], [address], 02/13/2025 12:06:10 01/26/20 25 01/26/2025 UA/M W/RFL X CULTU RE, ROUTI NE crystals NURSE WOUND CARE Not Available [facility] ([facility]) [address] [place], [address], 02/13/2025 12:06:10 01/26/20 25 01/26/2025 UA/M W/RFL X CULTU RE, ROUTI NE crystal type NURSE WOUND CARE Not Available [facility] ([facility]) [address] [place], [address], 02/13/2025 12:06:10 01/26/20 25 01/26/2025 UA/M W/RFL X CULTU RE, ROUTI NE mucus threads NURSE WOUND CARE Not Available [facility] ([facility]) [address] [place], [address], 02/13/2025 12:06:10 01/26/20 25 01/26/2025 UA/M W/RFL X CULTU RE, ROUTI NE bacteria None seen none seen/f ew Not Available [facility] ([facility]) [address] [place], [address], 02/13/2025 12:06:10 01/26/20 25 01/26/2025 UA/M W/RFL X CULTU RE, ROUTI NE yeast NURSE WOUND CARE Not Available [facility] ([facility]) [address] [facility], [place], [address], 02/13/2025 12:06:10 01/26/20 25 01/26/2025 UA/M W/RFL X CULTU RE, ROUTI NE trichomonas NURSE WOUND CARE Not Available [facility] ([facility]) [address] [facility], [place], [address], 02/13/2025 12:06:10 01/26/20 25 01/26/2025 UA/M W/RFL X CULTU RE, ROUTI NE comment NURSE WOUND CARE Not Available [facility] ([facility]) [address] [facility], [place], [address], 02/13/2025 12:06:10 01/26/20 25 01/26/2025 UA/M W/RFL X CULTU RE, ROUTI NE urinalysis reflex Commen t This speci men has refle xed to a Urine Cultu re. Not Available [facility] ([facility]) [address] [facility], [place], [address], 02/13/2025 12:06:10 01/26/20 25 01/28/2025 UA/M W/RFL X CULTU RE, ROUTI NE urine culture, routine Final report abnormal Not Available [facility] ([facility]) [address] [facility], [place], [address], 02/13/2025 12:06:10 01/26/20 25 01/28/2025 UA/M W/RFL X CULTU RE, ROUTI NE result 1 COMMEN T abnormal Esche rosa m a coli, ident ified by an autom ated bioch emica l syste nuria Del Rosario ptibi litdena profi le is consi stent with a proba ble ESBL. Multi -Drug Resis tant Organ ism Great er than 100,0 00 colon y formi ng units per mL Not Available [facility] ([facility]) [address] [place], [address], 02/13/2025 12:06:10 01/26/20 25 01/28/2025 UA/M W/RFL X CULTU RE, ROUTI NE antimicrobia l susceptibili ty Commen t S = Susce ptibl e; I = Inter media te; R = Resis tant P = Posit basim; N = Negat basim MICS are expre ssed in micro grams per mL Antib iotic RSLT# 1 RSLT# 2 RSLT# 3 RSLT# 4 Amoxi cilli n/Cla vulan ic Acid S Ampic illin R Cefaz yahaira R Cefep lissy S Cefox itin S Cefpo doxim e R Ceftr iaxon e R Cipro floxa deysi R Ertap enem S Genta micin S Levof loxac in R Merop enem S Nitro furan toin S Piper acill in/Ta zobac tenorio S Tetra cycli ne R Tobra mycin S Trime thopr im/Harper lfa R Not Available [facility] ([facility]) [address] [place], [address], 02/13/2025 12:06:10 01/26/20 25 02/12/2025 ALK PHOS ISOEN ZYME liver fraction: COMMEN T % Test not perfo rmed. CHEMI STRY RESUL TS NEEDE D TO COMPL ETE TESTI NG Not Available [facility] ([facility]) [address] [place], [address], 02/13/2025 12:06:11 01/26/20 25 02/12/2025 ALK PHOS ISOEN ZYME bone fraction: COMMEN T % Test not perfo rmed. CHEMI STRY RESUL TS NEEDE D TO COMPL ETE TESTI NG Not Available [facility] ([facility]) [address] [place], [address], 02/13/2025 12:06:11 01/26/2002/12/2025 ALK PHOS ISOEN ZYME intestinal frac.: COMMEN T % Test not perfo rmed. CHEMI STRY RESUL TS NEEDE D TO COMPL ETE TESTI NG Not Available [facility] ([facility]) [address] [place], [address], 02/13/2025 12:06:11 01/26/2002/13/2025 ALK PHOS ISOEN ZYME alkaline phosphatase 108 IU/L 47-123 normal Not Available [facility] ([facility]) [address] [facility], [place], [address], 02/13/2025 12:06:11 01/26/2001/25/2025 PSA TOTAL (REFL EX TO FREE) reflex criteria Commen t The perce nt free PSA is perfo rmed on a refle x basis only when the total PSA is betwe en 4.0 and 10.0 ng/mL . Not Available [facility] ([facility]) [address] [facility], [place], [address], 02/13/2025 12:06:11 01/26/2001/26/2025 PSA TOTAL (REFL EX TO FREE) prostate specific Ag 3.1 NG/mL 0.0-4. 0 normal Navdeep ECLIA metho dolog y. Accor ding to the [employer]i can [employer] iatio n, Serum PSA shoul d decre ase and remai n at undet ectab le level s after radic al prost atect danyel. The AUA defin es bioch emica l recur rence as an initi al PSA value 0.2 ng/mL or great er follo wed by a subse quent confi rmato ry PSA value 0.2 ng/mL or great er. Value s obtai jana with diffe rent assay metho ds or kits canno t be used inter harris eably . Resul ts canno t be inter prete d as absol red cliff evide nce of the prese nce or absen ce of malig nant disea . Not Available [facility] ([facility]) [address] [facility], [place], [address], 02/13/2025 12:06:11 01/26/20 25 01/26/2025 MITOC HONDR IAL (M2) ANTIB ALYCE mitochondria l (M2) antibody <20.0 units 0.0-20 .0 Negat basim 0.0 - 20.0 Equiv ocal 20.1 - 24.9 Posit basim >24.9 Mitoc hondr ial (M2) Antib odies are found in 90-96 % of patie nts with prima ry bilia ry cirrh osis. Not Available [facility] ([facility]) [address], [place], [address], 02/13/2025 12:06:12 01/26/20 25 01/26/2025 VITAM IN D, 25-HY DROXY vitamin D, 25-hydroxy 42.0 NG/mL 30.0-1 00.0 Vitam in D defic iency has been defin ed by the Insti tute of Medic ine and an Endoc rine Socie ty pract ice guide line as a level of serum 25-OH vitam in D less than 20 ng/mL (1,2) . The Endoc rine Socie ty went on to furth er defin e vitam in D insuf ficie ncy as a level betwe en 21 and 29 ng/mL (2). 1. IOM (Inst itute of Medic ine). 2009. Dieta ry refer ence intak es for calci um and D. Dickson stacy [place]: [employer] [facility] [employer] . 2. Filippo tsang [place], Molina fournier [place], Breann off-F errar i ANAYA, et al. Evalu ation , treat ment, and preve ntion of vitam in D defic iency : an Endoc rine Socie ty clini gauri pract ice guide line. JCEM. 2010; 96(7) :1911 -30. Not Available [facility] ([facility]) [address] [facility], [place], [address], 02/13/2025 12:06:12 01/26/20 25 01/26/2025 GGT WITH REFLE X AMYLA SE/LI PASE GGT 38 IU/L 0-65 normal Not Available [facility] ([facility]) [address] [facility] [place], [address], 02/13/2025 12:06:13 02/02/20 25 02/02/2025 CMP14 glucose 85 mg/dL 70-99 normal Not Availabl e [facility] ([facility]) [address] [facility] [place], [address], 02/02/2025 06:08:33 02/02/20 25 02/02/2025 CMP14 BUN 23 mg/dL 8-27 normal Not Available [facility] ([facility]) [address] [place], [address], 02/02/2025 06:08:33 02/02/20 25 02/02/2025 CMP14 creatinine 2.10 mg/dL 0.76-1 .27 above high normal Not Available [facility] ([facility]) [address] [facility] [place], [address], 02/02/2025 06:08:33 02/02/20 25 02/02/2025 CMP14 eGFR 35 mL/mi n/1.7 3 >59 below low normal Not Available [facility] ([facility]) [address] [place], [address], 02/02/2025 06:08:33 02/02/20 25 02/02/2025 CMP14 BUN/creatini ne ratio 11 10-24 normal Not Available [facility] ([facility]) [address] [place], [address], 02/02/2025 06:08:33 02/02/20 25 02/02/2025 CMP14 sodium 139 mmol/ L 134-14 4 normal Not Available [facility] ([facility]) [address] [facility] [place], [address], 02/02/2025 06:08:33 02/02/20 25 02/02/2025 CMP14 potassium 4.6 mmol/ L 3.5-5. 2 normal Not Available [facility] ([facility]) [address] [place], [address], 02/02/2025 06:08:33 02/02/20 25 02/02/2025 CMP14 chloride 104 mmol/ L 96-106 normal Not Available [facility] ([facility]) [address] [place], [address], 02/02/2025 06:08:33 02/02/20 25 02/02/2025 CMP14 carbon dioxide, total 20 mmol/ L 20-29 normal Not Available [facility] ([facility]) [address] [facility] [place], [address], 02/02/2025 06:08:33 02/02/20 25 02/02/2025 CMP14 calcium 8.7 mg/dL 8.6-10 .2 normal Not Available [facility] ([facility]) [address] [facility] [place], [address], 02/02/2025 06:08:33 02/02/20 25 02/02/2025 CMP14 protein, total 6.6 g/dL 6.0-8. 5 normal Not Available [facility] ([facility]) [address] [facility] [place], [address], 02/02/2025 06:08:33 02/02/20 25 02/02/2025 CMP14 albumin 3.7 g/dL 3.8-4. 9 below low normal Not Available [facility] ([facility]) [address] [facility] [place], [address], 02/02/2025 06:08:33 02/02/20 25 02/02/2025 CMP14 globulin, total 2.9 g/dL 1.5-4. 5 Not Available [facility] ([facility]) [address] [place], [address], 02/02/2025 06:08:33 02/02/20 25 02/02/2025 CMP14 bilirubin, total 0.7 mg/dL 0.0-1. 2 normal Not Available [facility] ([facility]) [address] [facility] [place], [address], 02/02/2025 06:08:33 02/02/20 25 02/02/2025 CMP14 alkaline phosphatase 101 IU/L 47-123 normal Ple ase note refer ence vito delaney harris e Not Available [facility] ([facility]) [address] [facility] [address], [place], [address], 02/02/2025 06:08:33 02/02/20 25 02/02/2025 CMP14 AST (SGOT) 32 IU/L 0-40 normal Not Avail able [facility] ([facility]) [address] [place], [address], 02/02/2025 06:08:33 02/02/20 25 02/02/2025 CMP14 ALT (SGPT) 32 IU/L 0-44 normal Not Avail able [facility] ([facility]) [address] [place], [address], 02/02/2025 06:08:33 Result Notes None recorded. Problems Name Problem SNOMED Code Status Onset Date Resolution Date Notes Provider Name and Address Organization Details Recorded Time Acute pharyngi tis 509857266 Completed 07/12/2016 DANYA Dumont, [facility] 7 09:50:21 Cough [id number] Completed 07/12/2016 DANYA Dumont, [facility] 7 09:50:36 On examinat ion - skin lesion Completed 03/16/2024 Van Galo MD [address] [facility] [address], [place], [address] , [facility] 4 09:11:37 Allergic reaction 946701410 Active DANYA Sykes, [facility] 3 09:51:15 Skin lesion 92506687 Completed 03/14/2024 Van Galo MD [address] [facility] [address], [place], [address] , [facility] 4 09:29:21 Chronic kidney disease 708546172 Completed 10/27/2018 Robin De La O MD [address] [facility] [address], [place], [address] , [facility] 9 10:22:51 Exposure to SARS-CoV -2 Completed 06/09/2020 Removal Reason: Problem added by user shin lopez from the COVID-19 watch flag Van Galo MD [address] [facility] [address], [place], [address] , [facility] 4 09:28:40 Exposure to SARS-CoV -2 Completed 03/14/2024 Van Galo MD [address] [address], [place], [address] , [facility] 4 09:28:40 Human immunode ficiency virus infectio n 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 1986 Van Galo MD [address] [facility] [address], [place], [address] , [facility] 4 09:11:04 Proctosi gmoiditi s 71071439 Completed 200603/16/2024 Van Galo MD [address] [facility] [address], [place], [address] , [facility] 4 09:14:18 Acute bronchit is 29019903 Completed 201211/27/2013 IMPRESSI ON: RESOLVIN G WITH MILD BRONCHOS PASM; RECORDED 09/08/19 13 8:53AM BY MCKAYLA LOPEZ MA, ANNOTATI ON/ADDEN DUM Not Available [facility] 4 14:44:28 Chronic sinusiti s 50326835 Completed 201211/27/2013 RECORDED 09/08/19 13 8:53AM BY MCKAYLA LOPEZ MA, ANNOTATI ON/ADDEN DUM Not Available [facility] 4 14:44:28 Cough 56374944 Completed 201211/27/2013 RECORDED 09/08/19 13 8:53AM BY MCKAYLA LOPEZ MA, ANNOTATI ON/ADDEN DUM DANYA Dumont, [place] - [facility] 7 09:50:36 Hypertro phy of breast 359473080 Completed 201211/27/2013 RECORDED 09/08/19 13 9:50AM BY ROBIN DE LA O MD, ANNOTATI ON/ADDEN DUM Not Available [facility] 4 14:44:29 Hypogly emia 254751770 Completed 201211/27/2013 RECORDED 09/08/19 13 8:53AM BY MCKAYLA LOPEZ MA, ANNOTATI ON/ADDEN DUM Not Available [facility] 4 14:44:29 Laborato ry procedur e performe d 632351968 Completed 201211/27/2013 RECORDED 09/08/19 13 8:52AM BY MCKAYLA LOPEZ MA, ANNOTATI ON/ADDEN DUM DANYA Dumont, [facility] 6 09:41:11 Nerve, plexus and root disorder s Completed 201211/27/2013 STORY: C7 RADICULO NERY ON LEFT; RECORDED 09/08/19 13 9:50AM BY ROBIN DE LA O MD, ANNOTATI ON/ADDEN DUM Not Available [facility] 4 14:44:29 Acute bronchit is 66053376 Completed 201212/20/2013 IMPRESSI ON: RESOLVIN G WITH MILD BRONCHOS PASM; RECORDED 09/08/19 13 8:53AM BY MCKAYLA LOPEZ MA, ANNOTATI ON/ADDEN DUM Not Available [facility] 4 12:56:59 Chronic sinusiti s 49171168 Completed 201212/20/2013 RECORDED 09/08/19 13 8:53AM BY MCKAYLA LOPEZ MA, ANNOTATI ON/ADDEN DUM Not Available [facility] 4 12:56:59 Cough 11298200 Completed 201212/20/2013 RECORDED 09/08/19 13 8:53AM BY MCKAYLA LOPEZ MA, ANNOTATI ON/ADDEN DUM DANYA Dumont, [place] - [facility] 7 09:50:36 Hypertro phy of breast 058187529 Completed 201212/20/2013 RECORDED 09/08/19 13 9:50AM BY ROBIN DE LA O MD, ANNOTATI ON/ADDEN DUM Not Available [facility] 4 12:56:59 Hypoglyc emia 844903627 Completed 201212/20/2013 RECORDED 09/08/19 13 8:53AM BY MCKAYLA LOPEZ MA, ANNOTATI ON/ADDEN DUM Not Available [facility] 4 12:56:59 Nerve, plexus and root disorder s Completed 201212/20/2013 STORY: C7 RADICULO NERY ON LEFT; RECORDED 09/08/19 13 9:50AM BY ROBIN DE LA O MD, ANNOTATI ON/ADDEN DUM Not Available [facility] 4 12:57:00 Acute bronchit is 21090245 Completed 201212/21/2013 IMPRESSI ON: RESOLVIN G WITH MILD BRONCHOS PASM; RECORDED 09/08/19 13 8:53AM BY MCKAYLA LOPEZ MA, ANNOTATI ON/ADDEN DUM Not Available [facility] 4 03:49:44 Chronic sinusiti s 35176345 Completed 201212/21/2013 RECORDED 09/08/19 13 8:53AM BY MCKAYLA LOPEZ MA, ANNOTATI ON/ADDEN DUM Not Available [facility] 4 03:49:44 Cough 94797704 Completed 201212/21/2013 RECORDED 09/08/19 13 8:53AM BY MCKAYLA LOPEZ MA, ANNOTATI ON/ADDEN DUM DANYA Dumont [place] - [facility] 7 09:50:36 Hypertro phy of breast 173075074 Completed 201212/21/2013 RECORDED 09/08/19 13 9:50AM BY ROBIN DE LA O MD, ANNOTATI ON/ADDEN DUM Not Available [facility] 4 03:49:44 Hypoglyc emia 713346995 Completed 201212/21/2013 RECORDED 09/08/19 13 8:53AM BY MCKAYLA LOPEZ MA, ANNOTATI ON/ADDEN DUM Not Available [facility] 4 03:49:44 Nerve, plexus and root disorder s Completed 201212/21/2013 STORY: C7 RADICULO NERY ON LEFT; RECORDED 09/08/19 13 9:50AM BY ROBIN DE LA O MD, ANNOTATI ON/ADDEN DUM Not Available [facility] 4 03:49:44 Disorder of skin 39484798 Completed 201211/27/2013 RECORDED 11/23/19 13 12:50PM BY NANCI GARCIA MA, ANNOTATI ON/ADDEN DUM Not Available [facility] 4 14:44:28 Disorder of skin 29098596 Completed 201212/20/2013 RECORDED 11/23/19 13 12:50PM BY NANCI GARCIA MA, ANNOTATI ON/ADDEN DUM Not Available [facility] 4 12:56:59 Disorder of skin 60967684 Completed 201212/21/2013 RECORDED 11/23/19 13 12:50PM BY NANCI GARCIA MA, ANNOTATI ON/ADDEN DUM Not Available [facility] 4 03:49:44 Influenz a vaccine needed 53403765223 06 Completed 201311/27/2013 RECORDED 06/01/19 14 2:34PM BY NANCI GARCIA MA, NURSE VISIT Not Available [facility] 4 14:44:29 Influenz a vaccine needed 84148203784 06 Completed 201312/20/2013 RECORDED 06/01/19 14 2:34PM BY NANCI GARCIA MA, NURSE VISIT Not Available [facility] 4 12:56:59 Influenz a vaccine needed 29482897469 06 Completed 201312/21/2013 RECORDED 06/01/19 14 2:34PM BY NANCI GARCIA MA, NURSE VISIT Not Available [facility] 4 03:49:44 Dysplasi a of anus 672223298 Active 2013 Joelle Gonzalez MA null, [facility] 3 09:51:15 Adult health examinat ion Completed 201303/10/2022 Van Galo MD [address] [address], [place], [address] , [facility] 2 10:56:29 Bronchit is 69344591 Completed 201311/27/2013 IMPRESSI ON: NO ABX AT THIS POINT, ENCOURAG E REST AND HYDRATIO N. RTC IF PERSISTE NT OR WORSENIN G SYMPTOMS .; RECORDED 09/11/19 14 9:22AM BY MCKAYLA LOPEZ MA, ANNOTATI ON/ADDEN DUM Not Available [facility] 4 14:44:28 Tobacco user 491276649 Completed 201311/27/2013 RECORDED 09/11/19 14 9:33AM BY MCKAYLA LOPEZ MA, ANNOTATI ON/ADDEN DUM Not Available [facility] 4 14:44:29 Hyperlip idemia 04097324 Completed 201311/27/2013 RECORDED 09/11/19 14 9:22AM BY MCKAYLA LOPEZ MA, ANNOTATI ON/ADDEN DUM Not Available [facility] 4 14:44:29 Pneumoni a 841711670 Completed 201311/27/2013 RECORDED 09/11/19 14 9:22AM BY MCKAYLA LOPEZ MA, ANNOTATI ON/ADDEN DUM Not Available [facility] 4 14:44:29 Polycyth emia vera (clinica l) 765453327 Active 2013 MILD IN SETTING OF ANTIRETR OVIRAL THERAPY AND CHRONIC RENAL FAILURE DANYA Sykes [facility] 3 09:51:15 Psychose xual dysfunct ion associat ed with inhibite d libido 420971348 Active 2013 DANYA Sykes [facility] 3 09:51:15 Bronchit is 04955475 Completed 201312/20/2013 IMPRESSI ON: NO ABX AT THIS POINT, ENCOURAG E REST AND HYDRATIO N. RTC IF PERSISTE NT OR WORSENIN G SYMPTOMS .; RECORDED 09/11/19 14 9:22AM BY MCKAYLA LOPEZ MA, ANNOTATI ON/ADDEN DUM Not Available [facility] 4 12:56:59 Hyperlip idemia 78752219 Completed 201312/20/2013 RECORDED 09/11/19 14 9:22AM BY MCKAYLA LOPEZ MA, ANNOTATI ON/ADDEN DUM Not Available [facility] 4 12:56:59 Pneumoni a 906625855 Completed 201312/20/2013 RECORDED 09/11/19 14 9:22AM BY MCKAYLA LOPEZ MA, ANNOTATI ON/ADDEN DUM Not Available [facility] 4 12:57:00 Bronchit is 79683739 Completed 201312/21/2013 IMPRESSI ON: NO ABX AT THIS POINT, ENCOURAG E REST AND HYDRATIO N. RTC IF PERSISTE NT OR WORSENIN G SYMPTOMS .; RECORDED 09/11/19 14 9:22AM BY MCKAYLA LOPEZ MA, ANNOTMAXWELL ON/ADDEN DUM Not Available [facility] 4 03:49:44 Hyperlip idemia 91663688 Completed 201312/21/2013 RECORDED 09/11/19 14 9:22AM BY MCKAYLA OLPEZ MA, ANNOTMAXWELL ON/ADDEN DUM Not Available [facility] 4 03:49:44 Pneumoni a 337571963 Completed 201312/21/2013 RECORDED 09/11/19 14 9:22AM BY MCKAYLA LOPEZ MA, ANNOTMAXWELL ON/ADDEN DUM Not Available [facility] 4 03:49:44 Laborato ry procedur e performe d 514020746 Completed 201311/27/2015 RECORDED 09/26/19 14 1:48PM BY VIK LOZANO, LAB REQ DANYA Dumont, [facility] 6 09:41:11 Mitral valve disorder 65355326 Completed 201309/14/2023 Van Galo MD [address] [facility] [address], [place], [address] , [facility] 4 13:22:41 Herpes zoster 3027752 Completed 201603/14/2024 Van Galo MD [address] [facility] [address], [place], [address] , [facility] 4 09:28:37 Kidney disease 30321202 Completed 201610/27/2018 DANYA Dumont, [facility] 9 09:19:20 Mixed hyperlip idemia 378620184 Active 2017 Labs are in the last ID note DANYA Dumont, [facility] 2 10:36:33 Lesion of skin of face 03537428719 6 Completed 201803/16/2024 Van Galo MD [address] [facility] [address], [place], [address] , [facility] 4 09:11:14 Pruritic disorder 858782455 Completed 201803/14/2024 Van Galo MD [address] [facility] [address], [place], [address] , [facility] 4 09:29:24 Adenomat ous polyp of colon 013933474 Completed 202005/29/2020 Juli Villalta ric, [facility] 1 15:31:03 Kidney stone 25153402 Completed 202003/14/2024 Van Galo MD [address] [facility] [address], [place], [address] , [facility] 4 09:28:19 Chronic kidney disease stage 3 486676475 Active 2020 DANYA Dumont, [facility] 2 10:36:33 Proteinu kyaw 32381688 Active 2020 DANYA Sykes, [facility] 3 09:51:15 Hyperten sive renal disease 97094573 Active 2021 DANYA Sykes, [facility] 3 09:51:15 Obstruct basim sleep apnea of adult 20241963113 03 Active 2021 DANYA Sykes, [facility] 3 09:51:15 Mitral valve prolapse 998760187 Completed 202203/16/2024 Van Galo MD [address] [facility] [address], [place], [address] , [facility] 4 09:11:19 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 345398998 Active 2022 Anastasiia Valverde null, [facility] 3 10:00:51 Atrial fibrilla tion 45313501 Active 2022 Mckayla smith MA null, [facility] 3 09:19:29 History of repair of mitral valve 401773783 Active 2023 Van Galo MD [address], [place], [address] , [facility] 4 13:22:36 Coronary arterios clerosis 61716624 Active 2023 Van Galo MD [address], [place], [address] , [facility] 4 18:13:33 Basal cell carcinom a of skin 094098790 Active 2023 Van Galo MD [address], [place], [address] , [facility] 4 17:25:52 History of calculus of kidney 609728271 Active 2023 Follows: Urology: Dr. Soto to kidney stones. Van Galo MD [address], [address] , [facility] 4 09:28:27 History of herpes zoster 07521256069 9108 Active 2023 Van Galo MD [address], [address] , [facility] 4 09:28:35 History of SARS-CoV -2 21002615507 9564005 Active 2023 Van Galo MD [address], [address] , [facility] 4 09:28:53 Dependen ce on continuo us positive airway pressure ventilat ion 401161747 Active 2023 Van Galo MD [address] [facility] [address], [place], [address] , [facility] 4 09:29:28 Problem Notes None recorded. Procedures Surgical History Date Name Laterality Status Provider Name and Address Organization Details Recorded Time 024 repair of mitral valve completed Van Galo MD [address] [facility] [address], [place], [address], [facility] 03/16/2024 09:18:06 021 Colonoscopy completed Juli Villalta [facility] 05/29/2020 15:29:49 013 Proctosigmoidoscopy dx completed Mckayla roman MA [facility] 11/28/2015 13:21:36 013 reconstruction of facial bones completed Mckayla roman MA [facility] 10/27/2018 09:20:15 011 Proctosigmoidoscopy dx completed Mckayla roman MA [facility] 11/28/2015 13:21:51 010 Proctosigmoidoscopy dx completed Mckayla roman [place] [facility] 11/28/2015 13:21:18 008 lithotripsy completed Mckayla roman [place] [facility] 10/27/2018 09:20:55 008 cauterization of condyloma acuminata completed Mckayla roman MA [facility] 10/27/2018 09:21:36 Other completed Sandra Mendez [facility] 02/16/2021 14:46:03 Imaging Results None recorded. Procedure Notes None recorded. Medical Equipment None Reported. Allergies Allergen ID Allergen Name Allergen Category Reaction Reaction Severity Criticality Documentation Date Start Date Code Code System Note Provider Name and Address Organization Details Recorded Time Substance with sulfonami de structure and antibacte rial mechanism of action (substanc e) medicatio n other Not available Not available 08/02/20142013 42857 8003 SNOMED seizu re Mckayla DANYA Khan, [facility] 6 09:48:21 2983 fluticaso ne / salmetero l medicatio n other Not available Not available 11/27/20132013 02006 5 RxNorm REACT ION: FELT LIKE HE WAS CHOKI NG, THROA T FELT TIGHT [facility] 6 09:39:02 23327 lisinopri l medicatio n cough Not available Not available 10/27/2018 77594 RxNorm reflu x DANYA Wilkins, [facility] 9 09:29:55 Medications Name Sig Start Date Stop Date Status Note LastModified by Organization Details LastModified Time valacyclo vir hcl 500 mg tabs 11/26 completed Not Available Not Available Not Available furosemid e 20 mg tabs 11/26 completed Not Available Not Available Not Available prednison e 20 mg tabs 11/26 completed Not Available Not Available Not Available abacavir 300 mg tabs 11/26 completed Not Available Not Available Not Available isentress 400 mg tabs 11/26 completed Not Available Not Available Not Available lamivudin e 150 mg tabs 11/26 completed Not Available Not Available Not Available viread 300 mg tabs 11/26 completed Not Available Not Available Not Available lisinopri l 5 mg tabs 11/26 completed Not Available Not Available Not Available losartan 50 mg tablet TAKE 1 TABLET BY MOUTH EVERY DAY IN THE EVENING 09/13 completed 09/14/23 ON HOLD Not Available Not Available Not Available amoxicill in 500 mg capsule TAKE 4 CAPSULES BY MOUTH 1 HOUR BEFORE PROCEDUR E active Not Available Not Available No t Available Augmentin 875 mg-125 mg tablet Take 1 tablet every 12 hours by oral route for 10 days. 09/21 completed Not Available Not Available Not Available atorvasta tin 80 mg tablet TAKE 1 TABLET BY MOUTH EVERY DAY active Not Available Not Available No t Available prednison e 10 mg tablet PLEASE SEE ATTACHED FOR DETAILED DIRECTIO NS 07/28 completed Not Available Not Available Not Available doxycycli ne hyclate 100 mg capsule TAKE 2 CAPSULES BY MOUTH WITHIN 24-72 HRS AFTER CONDOMLE SS SEX. active Not Available Not Available No t Available ritonavir 100 mg capsule DAILY 07/15 completed RECORDED 07/16/19 12 9:06AM BY MCKAYLA LOPEZ MA, OFFICE VISIT; Not Available Not Available Not Available tizanidin e 4 mg tablet TAKE 1 TABLET BY MOUTH EVERY DAY AT BEDTIME NEEDED 07/28 completed Not Available Not Available Not Available amiodaron e 200 mg tablet Take 1 tablet twice a day by oral route. 03/16 completed Not Available Not Available Not Available metoprolo l succinate ER 50 mg tablet,ex tended release 24 hr TAKE 1 TABLET BY MOUTH EVERY DAY active Not Available Not Available No t Available valacyclo vir 1 gram tablet DAILY 11/26 completed RECORDED 09/11/19 14 9:22AM BY MCKAYLA LOPEZ MA, OFFICE VISIT; Not Available Not Available Not Available prednison e 20 mg tablet Take 2 tablets every day by oral route for 5 days. 11/26 completed Not Available Not Available Not Available moxifloxa deysi 400 mg tablet TAKE 1 TABLET BY MOUTH EVERY DAY FOR 5 DAYS 03/15 completed Not Available Not Available Not Available Zithromax Z-Tyler 250 mg tablet QD 11/17 completed RECORDED 11/20/19 10 8:23AM BY JOELLE MALONE PA-C, MEDICATI ON AUTO-CORY CTIVATIO N;2PO QD FOR 1 DAY, THEN 1 QD FOR 4 DAYS. Not Available Not Available Not Available pseudoeph edrine ER 120 mg tablet,ex tended release Take 1 tablet every 12 hours by oral route for 10 days. 03/15 completed Not Available Not Available Not Available valacyclo vir 500 mg tablet 11/26 completed Not Available Not Available Not Available Morphine Sulfate CR 15 mg tablet,ex tended release FOUR TIMES DAILY, NEEDED 09/01 completed RECORDED 10/07/19 10 10:15AM BY ROBIN DE LA O MD, MEDICATI ON AUTO-CORY CTIVATIO N; Not Available Not Available Not Available sildenafi l 25 mg tablet 30 MINUTES PRIOR TO INTERCOU RSE, PRN 07/15 completed RECORDED 07/16/19 12 10:09AM BY ROBIN DE LA O MD, OFFICE VISIT;DI SCUSSED WITH MARGARITA REHMAN, DR. ODILON Alegre. IT IS OKAY TO USE WITH ANTIVIRA L MEDICATI ONS. Not Available Not Available Not Available aspirin 81 mg tablet,de layed release Take 1 tablet every day by oral route. active Not Available Not Available No t Available tramadol 50 mg tablet TAKE 1 TABLET BY MOUTH EVERY 6 HOURS NEEDED FOR PAIN 03/15 completed Not Available Not Available Not Available amoxicill in 500 mg tablet 02/12 completed Not Available Not Available Not Available Viread 300 mg tablet 11/26 completed Not Available Not Available Not Available hydromorp blaire 2 mg tablet TAKE 1 TABLET BY MOUTH EVERY 4 HOURS NEEDED. FOR SEVERE PAIN FROM KIDNEY STONE *E* 02/16 completed Not Available Not Available Not Available tamsulosi n 0.4 mg capsule TAKE 1 CAPSULE BY MOUTH EVERY DAY FOR 90 DAYS active Not Available Not Available No t Available potassium citrate ER 10 mEq (1,080 mg) tablet,ex tended release EVERY TWELVE HOURS 07/15 completed RECORDED 07/16/19 12 9:06AM BY MCKAYLA LOPEZ MA, OFFICE VISIT; Not Available Not Available Not Available benzonata te 100 mg capsule TAKE 1 CAPSULE BY MOUTH THREE TIMES A DAY NEEDED FOR 5 DAYS 09/12 completed Not Available Not Available Not Available Qvar 40 mcg/actua tion Metered Aerosol oral inhaler Inhale 2 puffs twice a day by inhalati on route for 30 days. 11/25 completed Not Available Not Available Not Available losartan 25 mg tablet Take 1 tablet every day by oral route for 90 days. 05/04 completed Not Available Not Available Not Available Advair Diskus 250 mcg-50 mcg/dose powder for inhalatio n TWO TIMES DAILY 11/26 completed RECORDED 12/27/19 10 10:51AM BY JOELLE MALONE PA-C, MEDICATI ON AUTO-CORY CTIVATIO N;SAMPLE GIVEN Not Available Not Available Not Available gabapenti n 300 mg capsule TAKE 1 CAPSULE BY MOUTH EVERYDAY AT BEDTIME 07/28 completed Not Available Not Available Not Available diclofena c sodium 75 mg tablet,de layed release Take 1 tablet every day by oral route for 30 days. 07/28 completed Not Available Not Available Not Available codeine 10 mg-guaife nesin 100 mg/5 mL oral liquid Take 10 mL every day by oral route at bedtime for 7 days. 10/24 completed Not Available Not Available Not Available bisacodyl 5 mg tablet,de layed release TAKE 4 TABLETS BY MOUTH 1 TIME THE DAY BEFORE PROCEDUR E WITH 8 OUNCES OF WATER 03/10 completed Not Available Not Available Not Available lisinopri l 5 mg tablet Take 1 tablet every day by oral route for 90 days. 10/27 completed Not Available Not Available Not Available furosemid e 20 mg tablet Take 1 tablet every day by oral route for 5 days. 11/26 completed Not Available Not Available Not Available albuterol sulfate HFA 90 mcg/actua tion aerosol inhaler Inhale 2 puffs every 4 hours by inhalati on route as needed for cough for 30 days. 02/12 completed Not Available Not Available Not Available lamivudin e 150 mg tablet Take 1 tablet every day by oral route. 11/26 completed Not Available Not Available Not Available doxycycli ne hyclate 100 mg tablet Take 1 tablet twice a day by oral route for 7 days. 10/27 completed Not Available Not Available Not Available abacavir 300 mg tablet Take 1 tablet every day by oral route. 11/26 completed Not Available Not Available Not Available moxifloxa deysi 0.5 % eye drops INSTILL 1 DROP INTO THE AFFECTED EYE Q 2 FOR 3 DAYS UTD. 02/16 completed Not Available Not Available Not Available tadalafil 5 mg tablet Take 1 tablet every day by oral route as needed. 03/16 completed Not Available Not Available Not Available tadalafil 20 mg tablet TAKE ONE TABLET BY MOUTH EVERY DAY NEEDED active Not Available Not Available No t Available abacavir 600 mg-lamivu dine 300 mg tablet DAILY 07/15 completed RECORDED 07/16/19 12 9:06AM BY MCKAYLA LOPEZ MA, OFFICE VISIT; Not Available Not Available Not Available guaifenes in EVERY 6 HOURS PRN 11/29 completed RECORDED 12/01/19 13 8:00AM BY JOELLE MALONE PA-C, MEDICATI ON AUTO-CORY CTIVATIO N; Not Available Not Available Not Available Guiatuss AT BEDTIME 11/20 completed RECORDED 11/26/19 10 11:35AM BY JUSTIN CONTRERAS I MEDICATI ON AUTO-CORY CTIVATIO N; Not Available Not Available Not Available multivita min 2 chewable tablets daily active Not Available Not Available No t Available Adult Low Dose Aspirin DAILY 09/10 completed RECORDED 09/11/19 14 9:26AM BY MCKAYLA LOPEZ MA, OFFICE VISIT; Not Available Not Available Not Available atazanavi r 300 mg capsule EVERY MORNING 07/15 completed RECORDED 07/16/19 12 9:06AM BY MCKAYLA LOPEZ MA, OFFICE VISIT; Not Available Not Available Not Available Engerix-B (PF) 20 mcg/mL intramusc ular suspensio n 04/30 completed Not Available Not Available Not Available raltegrav ir 400 mg tablet DAILY 11/26 completed RECORDED 09/11/19 14 9:26AM BY MCKAYLA LOPEZ MA, OFFICE VISIT; Not Available Not Available Not Available Prevnar 13 (PF) 0.5 mL intramusc ular syringe 11/26 completed Not Available Not Available Not Available Eliquis 5 mg tablet TAKE 1 TABLET BY MOUTH TWICE A DAY 07/28 completed Not Available Not Available Not Available Vashe 0.033 % irrigatio n solution Take 1 irrigati on every 6 hours by irrigati on route as needed. 01/16 completed Not Available Not Available Not Available Triumeq 600 mg-50 mg-300 mg tablet TAKE 1 TABLET BY MOUTH EVERY DAY 03/16 completed Not Available Not Available Not Available Fluarix Quad (PF) 60 mcg (15 mcg x 4)/0.5 mL IM syringe 11/26 completed Not Available Not Available Not Available Genvoya 150 mg-150 mg-200 mg-10 mg tablet Take 1 tablet every day by oral route for 30 days. 10/27 completed Not Available Not Available Not Available Fluvirin 8877-8021 45 mcg (15 mcg x 3)/0.5 mL intramusc ular suspensio n 04/30 completed Not Available Not Available Not Available Flucelvax Quad 6011-1947 (PF) 60 mcg (15 mcg x 4)/0.5 mL IM syringe 09/21 completed Not Available Not Available Not Available Biktarvy 50 mg-200 mg-25 mg tablet TAKE 1 TABLET BY MOUTH EVERY DAY 03/10 completed Not Available Not Available Not Available Dovato 50 mg-300 mg tablet TAKE 1 TABLET BY MOUTH EVERY DAY active Not Available Not Available No t Available Flulaval Quad (PF) 60 mcg (15 mcg x 4)/0.5 mL IM syringe ADM 0.5ML IM UTD 02/12 completed Not Available Not Available Not Available Vitals Date Recorded Body height Body mass index (BMI) Body weight Heart rate Oxygen saturation Oxygen saturation in Arterial blood by Pulse oximetry Body temperature Systolic And Diastolic Provider Name and Address Organization Details Last Updated DateTime 4 177.8 cm 23.8 kg/m2 94797.3 3 g 62 /min 95 % 95 % 97.2 [degF] 101/67 mm[Hg] [facility] 4 13:09:17 Date Recorded Body height Body mass index (BMI) Body weight Heart rate Oxygen saturation Oxygen saturation in Arterial blood by Pulse oximetry Body temperature Systolic And Diastolic Provider Name and Address Organization Details Last Updated DateTime 5 177.8 cm 24.2 kg/m2 56496.1 1 g 95 /min 97 % 97 % 97.5 [degF] 111/71 mm[Hg] [facility] 5 09:06:57 Date Recorded Body height Provider Name an d Address Organization Details Last Updated DateTime 03/16/2024 177.8 cm Bettie Gómez MA [facility] 03/16/2024 08:58:29 Date Recorded Body mass index (BMI) Body weight Oxygen saturation Oxygen saturation in Arterial blood by Pulse oximetry Heart rate Body temperature Systolic And Diastolic Provider Name and Address Organization Details Last Updated DateTime 4 25.1 kg/m2 95122.3 6 g 99 % 99 % 62 /min 97.5 [degF] 122/71 mm[Hg] Maria Lewis MA [facility] 4 09:00:18 Social History Question Answer Notes LastModified by Organizat ion Details LastModified Time Tobacco Smoking Status [facility] 15:42:18 Do You Have An Advance Directive? Yes At Home Information not available 03/10/2022 Is Blood Transfusion Acceptable In An Emergency? Yes Information not available 11/27/2015 What Is Your Level Of Caffeine Consumption? Moderate 1-2 Cups Of Coffee A Day Information not available 11/25/2014 How Much Tobacco Do You Chew? None Information not available 11/27/2015 What Type Of Diet Are You Following? REGULAR Information not available 11/25/2014 Which Illicit Or Recreational Drugs Have You Used? Gummies- Occ Information not available 03/15/2023 Live Alone Or With Others? Alone 1 Dog Information not available 03/15/2023 Do You Take Precautions To Prevent Distracted Driving? Yes Information not available 11/27/2015 How Often Do You Need To Have Someone Help You When You Read Instructions, Pamphlets, Or Other Written Material From Your Doctor Or Pharmacy? Never Information not available 11/27/2015 Have You Served In The ? No chary Information not available 12/14/2016 Have You Or Anyone In Your Household Had Any Of The Following Symptoms In The Last 14 Days: Sore Throat, Cough, Chills, Body Aches For Unknown Reasons, Shortness Of Breath For Unknown Reasons, Loss Of Smell, Loss Of Taste, Fever At Or Greater Than 100 Degrees Fahrenheit? No Information not available 02/13/2020 Are You Or Anyone In Your Household A Health Care Provider Or Emergency Responder? No [email or web address] Information not available 02/13/2020 To The Best Of Your Knowledge Have You Been In Close Proximity To Any Individual Who Tested Positive For COVID-19? No [email or web address] Information not available 02/13/2020 What Was The Date Of Your Most Recent Tobacco Screening? 03/16/2024 [email or web address] Information not available 03/16/2024 How Many Children Do You Have? 0 Information not available 03/10/2022 Do You Use Protection During Sex? Usually [email or web address] Information not available 02/16/2021 Do You Use Your Seat Belt Or Car Seat Routinely? Yes [email or web address] Information not available 02/16/2021 Seat Belts Used Routinely Yes Information not available 03/10/2022 Are You Sexually Active? Yes Information not available 11/27/2015 Smoke Alarm In Home Yes Information not available 03/10/2022 Do You Have Smoke And Carbon Monoxide Detectors In Your Home? Yes Information not available 02/16/2021 At What Age Did You Start Smoking Tobacco? 0 Information not available 11/27/2015 Are You Passively Exposed To Smoke? No Information not available 11/27/2015 How Much Tobacco Do You Smoke? No [email or web address] Information not available 11/27/2014 Do You Use Sunscreen Routinely? Yes Information not available 11/27/2015 How Many Years Have You Smoked Tobacco? 0 Information not available 11/27/2015 Sex: Unknown Functional Status Question Answer Note LastModified by Organizat ion Details LastModified Time Do you use any illicit or recreational drugs? Yes Information not available 03/10/2022 Do you or have you ever used any other forms of tobacco or nicotine? No Information not available 03/10/2022 What is your level of alcohol consumption? Moderate Approx 3-5 drinks per week Information not available 11/25/2014 Do you or have you ever used smokeless tobacco? Never used smokeless tobacco Information not available 03/10/2022 Are you currently employed? Yes Information not available 03/10/2022 Are you able to walk independently without assistance or assistive devices? YESWOREST Information not available 03/10/2022 Are you able to care for yourself independently? 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 Never used electronic cigarettes Information not available 03/10/2022 What is your exercise level? Moderate walking; every day Information not available 03/10/2022 Mental Status None recorded. Family History Relationship Description Onset Age of this Age Resolved Age Notes LastModified by Organization Details LastModified Time Mother Heart disease [email or web address] Not available 2015 10:28:59 Mother Basal cell carcinoma of skin [email or web address] s Not available 03/10/2022 10:47:21 Mother Osteoporosis bsolivanmat to s Not available 03/10/2022 10:47:21 Mother Heart failure [email or web address] Not available 2023 09:16:27 Mother Atrial fibrillation [email or web address] Not available 05/2023 09:16:37 Mother Dementia [email or web address] Not available 1 05/16/2023 09:17:29 Father Heart disease [email or web address] Not available 2015 10:28:59 Father Hypertrophic obstructive cardiomyopat hy bsolivanmatto s Not available 03/10/2022 10:47:21 Medical History Condition Response AIDS/HIV Y Heart Problems Y Other Y Blood Diseases Y Kidney Stones Y Kidney Disease Y Immunizations Vaccine Type Date Status Note Provider Nam e and Address Organization Details Recorded Time Influenza, split virus, trivalent, PF 6 completed DANYA [facility]kes [facility] 03/15/2023 09:51:22 Hep B, adult 6 completed DANYA Sykes [facility] 03/15/2023 09:51:22 pneumococcal polysaccharide PPV23 7 completed Not Available [facility] 10/15/2021 16:21:29 [facility], adult 6 [facility] 09:51:22 Influenza, MDCK, quadrivalent, PF 8 [facility]15[facility] 09:51:22 Influenza, split virus, quadrivalent, preservative 9 completed Not Available [facility] 10/15/2021 16:21:29 Influenza, split virus, quadrivalent, PF 0 [facility] 03/15/[facility]23 09:51:22 Influenza, split virus, quadrivalent, preservative 0 [facility] 03/15/[facility]23 09:56:48 COVID-19, mRNA, LNP-S, PF, 30 mcg/0.3 mL dose 1 completed DANYA [facility]kes [facility] 03/15/2023 09:51:22 COVID-19, mRNA, LNP-S, PF, 30 mcg/0.3 mL dose 1 completed DANYA [facility] 03/15/2023 09:51:22 meningococcal ACWY, unspecified formulation 9 completed DANYA [facility] 03/10/2022 10:30:34 HPV, quadrivalent 3 [facility] 03/10[facility]2022 10:30:34 HPV, quadrivalent 4 [facility] 03/10/2022 10:30:34 pneumococcal polysaccharide PPV23 4 completed DANYA [facility] 03/10/2022 10:30:34 Hep B, adult 6 completed DANYA Sykes, [facility] 03/15/2023 09:51:22 Pneumococcal conjugate PCV 13 6 completed DANYA [facility] 03/10/2022 10:30:34 COVID-19, mRNA, LNP-S, PF, 30 mcg/0.3 mL dose 1 completed DANYA [facility]kes [facility] 03/15/2023 09:51:22 Pneumococcal conjugate PCV 13 6 completed DANYA [facility]kes [facility] 03/15/2023 09:51:22 Tdap 1 completed DANYA [facility]kes [facility] 03/15/2023 09:51:22 Influenza, split virus, trivalent, preservative 0 completed DANYA [facility] 03/15/2023 09:51:22 Influenza, split virus, quadrivalent, PF 1 completed DANYA [facility] 03/15/2023 09:51:22 Vaccinia, smallpox Mpox vaccine live, PF, SQ or ID injection 2 completed DANYA [facility]kes [facility] 03/15/2023 09:51:22 Pneumococcal conjugate PCV 13 6 completed DANYA [facility] 03/10/2022 10:30:34 Influenza, split virus, quadrivalent, PF 6 completed DANYA [facility] 03/15/2023 09:51:22 zoster recombinant 2 completed DANYA [facility] 03/15/2023 09:51:22 [facility]ap 9 [facility]15[facility] 09:51:22 COVID-19, mRNA, LNP-S, bivalent, PF, 30 mcg/0.3 mL dose 2 completed DANYA [facility] 03/15/2023 09:51:22 Vaccinia, smallpox Mpox vaccine live, PF, SQ or ID injection 2 completed DANYA [facility] 03/15/2023 09:51:22 zoster recombinant 2 completed DANYA [facility] 03/15/2023 09:51:22 Influenza, split virus, quadrivalent, PF 2 completed DANYA [facility] 03/15/2023 09:51:22 COVID-19, mRNA, LNP-S, PF, kimberly-sucrose, 30 mcg/0.3 mL 3 completed DANYA [facility]kes [facility] 03/15/2023 09:56:49 Influenza, split virus, quadrivalent, PF 3 completed DANYA [facility] 03/15/2023 09:56:49 meningococcal conjugate quadrivalent, MenACWY-TT (MCV4) 4 completed DANYA [facility] 03/16/2024 08:55:42 COVID-19, mRNA, LNP-S, PF, 50 mcg/0.5 mL 4 completed DANYA [facility] 03/16/2024 08:55:42 Influenza, MDCK, trivalent, PF 4 completed DANYA Damon, [facility] 03/16/2024 08:55:42 Hep A, ped/adol, 2 dose 2 completed Not Available [facility] 10/15/2021 16:21:29 Hep A, ped/adol, 2 dose 3 completed Not Available [facility] 10/15/2021 16:21:29 Hep B, adult 2 completed Not Available [facility] 10/15/2021 16:21:29 Hep B, adult 3 completed Not Available [facility] 10/15/2021 16:21:29 Hep B, adult 3 completed Not Available [facility] 10/15/2021 16:21:29 pneumococcal polysaccharide PPV23 1 completed Not Available [facility] 10/15/2021 16:21:29 pneumococcal polysaccharide PPV23 6 completed Not Available [facility] 10/15/2021 16:21:29 Td (adult), 2 Lf tetanus toxoid, preservative free, adsorbed 1 completed Not Available [facility] 10/15/2021 16:21:29 MMR 1 completed Not Available [facility] 10/15/2021 16:21:29 Influenza, split virus, trivalent, preservative 4 completed DANYA Sykes, [facility] 03/15/2023 09:51:22 Past Encounters Encounter ID Performer Location Encounter Start Date Encounter Closed Date Diagnosis/Indication Diagnosis SNOMED-CT Code Diagnosis ICD10 Code Diagnosis IMO Codes Diagnosis Note [id number] [facility] [address] [facility] [place] [address] 08/22/2009 00:00:00 [id number] [employer] [facility] [address] [facility] [place] [address] 11/12/2009 00:00:00 [id number] [employer] [address] [facility] [place] [address] 11/19/2009 00:00:00 [id number] [employer] [facility] [address] [facility] [address] [place], [place] [address] 12/27/2009 00:00:00 [id number] [facility] [facility] [address] [facility] [address] [place], [place] [id number] 07/16/2011 00:00:00 [id number] [facility] [facility] [address] [facility] [address] [place], [place] [address] 09/07/2012 00:00:00 [id number] [employer] [facility] [address] [facility] [address] [place], [place] [id number] 11/22/2012 00:00:00 [id number] [employer] [facility] [address] [facility] [address] [place], [place] [address] 09/10/2013 00:00:00 [id number] DOYLE Mcbride Main Office [address] [address] [place], [place] [id number] 03/05/2014 09:36:23 03/05/2014 10:25:14 Acute pharyngitis 761090721 Cough 42451850 likely viral uri with underlying reactive airways. call in 1 wk if not improving. we discussed his advair reaction. he felt like his throat was tight when he used it. Unlikely an allergy, we will try qvar. [id number] Robin De La O MD Main Office [address] [address] [place] [address] 11/25/2014 15:13:57 11/25/2014 16:38:53 Adult health examination 480535869 Human immunodeficiency virus infection 08686935 Mitral valve disorder 08369748 On examina tion - skin lesion 547930596 Chronic ki dney disease stage 3 784196980 Screening for malignant neoplasm of colon 806298225 [id number] Seven villalobos MD Main Office [address] [address] [place] [address] 12/19/2014 14:25:36 12/19/2014 15:08:48 Allergic reaction 597868723 Right lower leg appearance c/w allergic rxn/see photo/ Stongly doubt any DVT. Pt to elevate leg/limit activity and call if not improving [id number] Robin De La O MD Main Office [address] [address] [place] [address] 11/27/2015 09:35:36 11/27/2015 10:49:32 Adult health examination 388386525 Z00.00 Human immunodeficiency virus infection 59975424 B20 Mitral valve disorder 11 069473 I05.9 Chronic ki dney disease stage 3 052265294 N18.3 Skin lesion 23999369 L98 .9 [id number] DOYLE Rodriguez Main Office [address] [address] [place] [address] 04/30/2016 10:24:09 04/30/2016 11:01:39 Cough 85919789 R05 Symptomati c treatment, rest, hydration, proair every 4 hours x 2 days then as needed, robitussin with codeine as needed. Call/ return for worsening symptoms or concerns. [id number] Robin De La O MD Main Office [address] [address] [place] [address] 12/14/2016 08:30:28 12/14/2016 09:53:47 Adult health examination 739067022 Z00.00 Screening for malignant neoplasm of colon 940693083 Z12.11 Mitral valve disorder 11 133174 I05.9 Hyperlipidemia 19667999 E78.5 Human immunodeficiency virus infection 50983541 B20 Stable with good viral suppressio n Gastroesop hageal reflux disease 743388898 K21.9 [id number] Temo Riojas PA-C Main Office [address] [address] [place] [address] 05/04/2017 08:26:50 05/04/2017 09:31:36 Acute sinusitis 31968133 J01.90 Cough 25543075 R05 [id number] Meghna Riojas PA-C Main Office [address] [address] [place] [address] 09/21/2017 10:25:59 09/21/2017 11:20:24 Acute sinusitis 62948382 J01.90 Cough 70760387 R05 [id number] Robin De La O MD Main Office [address] [address] [place] [address] 10/27/2018 09:03:44 10/27/2018 10:47:05 Adult health examination 413187144 Z00.00 Mixed hyperlipidemia 267 827431 E78.2 Human immunodeficiency virus infection 36643898 B20 Stable with good viral suppressio n Hepatitis C screening 41 9852508 Z11.59 Administra tion of viral vaccine 79686386 Z23 Screening for malignant neoplasm of colon 503298339 Z12.11 Lesion of skin of face 5907950010 06 L98.9 Chronic ki dney disease stage 3 102801080 N18.3 Followed by nephrology Myalgia/my ositis - multiple 230676626 M79.10 ? possible med side effect Pruritic disorder 152957 002 L29.9 Mitral valve disorder 11 236392 I05.9 Asymptomat ic moderate to severe Mitral Regurgitat ion. followed by cardiology [id number] Meliton Hinds MD Main Office [address] [facility] [address] [place] [address] 06/08/2019 10:35:22 06/08/2019 11:46:39 Wheezing 94969031 R06.2 Wheezing improve with updraft, will give proair to use at home. Persistent cough 2629510 02 R05 rest, hydration, antipyreti c if needed, does not seem to be the flu at present as no fever. Call if not improving in the next few days, sooner if worsening. Can use prescripti on cough med when home or at night, do not drive while taking medication . [id number] Naty hamilton MD Main Office [address] [facility] [address] [place] [address] 02/13/2020 10:01:52 02/13/2020 11:14:04 Adult health examination 432898389 Z00.00 Pt is in good general health. Social and family history reviewed. Immunizati ons reviewed, advised annual flu shot. She is upt to date on dental and eye providers, colonoscop y is due, Reviewed diet and exercise. Mixed hyperlipidemia 267 212663 E78.2 Human immunodeficiency virus infection 52877019 B20 Stable with good viral suppressio n Screening for malignant neoplasm of colon 909217821 Z12.11 Chronic ki dney disease stage 3 943556092 N18.3 Followed by nephrology , saw recently, had labs Mitral valve disorder 11 073140 I05.9 Asymptomat ic moderate to severe Mitral Regurgitat ion. followed by cardiology , pt requests echo Pain in left foot 932785 4800 73027 M79.672 xray, ice elevation, rest Mass of right breast 734 [id number] 2597432 N63.10 obtain ultrasound and mammogram to assess [id number] Meliton Hinds MD Tele[facility] [address] [facility] [address] [place] [address] 02/10/2021 08:38:46 02/10/2021 12:24:52 Exposure to viral disease 1869173685 50007 Z03.818 Counseling 656124514 Z71 .9 Health advice, education or counseling done for COVID 19 [id number] Van Galo MD Main Office [address] [facility] [address] [facility] [place] [address] 02/16/2021 14:44:46 02/16/2021 16:41:43 Human immunodeficiency virus infection 34826235 B20 Follows [facility] ID, viral load undetectab le Chronic ki dney disease stage 3 183321895 N18.32 Follows Renal: Dr. Jun Colbert [facility] Adult [facility] th examination 721401130 Z00.00 Patient was counseled on healthy diet, exercise and nutrition due to Body mass index is 25.8 kg/m . Last PSA Date: Result: Plan: Had shared decision, patient opted to screen, order placed. Understand s false positive rates with PSA testing. Last Colonoscop y: Date: 05/27/20 Result: Plan: per GI repeat in 5 yrs Vaccines: TdAP: 10/27/18 Zoster: Got through ID, had 2 doses PCV13: 07/30/15 PPSV23: 07/08/16 Influenza: Had last week at [facility] Covid: 07/10/20, 07/31/20 Routine labs today, with STI workup Immunizati on status reviewed. Will screen based on risk factors. Regular dental and ophtho care advised as well as seat belt and sunscreen use. Distracted driving discussed. Medication reconciled . 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 Hydration enforced and limitation of caffeine/e tri.He is due to follow up with cardiology and tells me he will schedule. Kidney stone 30503678 N2 0.0 Follows: Urology: Dr. Soto to kidney stones. Mitral valve disorder 11 438272 I05.8 Follows cardiology , Is over due.Advise d to f/u [id number] Van Galo MD Main Office [address] [facility] [address] [place] [address] 03/10/2022 10:18:55 03/10/2022 11:26:41 Erythrocytosis 658714502 D75.1 Serum crea tinine above reference range 488002135 R79.89 Adult [facility] th examination 849939501 Z00.00 Patient was counseled on healthy diet, exercise and nutrition due to Body mass index is 25.1 kg/m . Last PSADate: 01/20/22Resu lt: 1.7Plan: Had shared decision, patient opted to screen, order placed. Understand s false positive rates with PSA testing. Last Colonoscop y:Date: 05/27/20Res ult:Plan: per GI repeat in 5 yrs Vaccines:T dAP: 10/27/18Zos ter rec: 12/05/21PCV 13: 07/30/15PCV 20: plans to get PRMOGA21: 07/08/16Inf luenza: 03/10/22Co vid: 07/10/20, 07/31/20, 03/09/21, 02/10/22Mon eky pox: got 2 doses.Meni ngitis, up to date. Routine labs reviewed Immunizati on status reviewed. Will screen based on risk factors. Regular dental and ophtho care advised as well as seat belt and sunscreen use. Distracted driving discussed. Medication reconciled . Human immunodeficiency virus infection 69137776 B20 Follows ID, tells me viral load undetectab le Chronic ki dney disease stage 3 063562916 N18.32 Follows Renal: Dr. Jun Blackman Cardiac arrhythmia 44815 7007 I49.9 On exam noted on auscultati on, likely PVC will get ekg.EKG done, unchanged under then PVC, tells me he is under a lot of stress, caring for mother and recovering from recent illness. Hydration enforced and limitation of caffeine/e tri.He is due to follow up with cardiology and tells me he will schedule. Kidney stone 59102584 N2 0.0 Follows: Urology: Dr. Soto to kidney stones. Mitral valve disorder 11 327672 I05.8 Follows cardiology , Is over due.Advise d to f/u Needs infl uenza immunization 877300748 Z23 Hypertensi ve renal disease 03731064 I12.9 Low sodium diet discussedC ounseled on medication adherence -bp slightly elevated today, notes stressful day, he will take home bp for 1 mo and we will touch base 1mo. 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 Red flags of HTN emergency discussed and when to go to ED. [id number] Van Galo MD Main Office [address] [facility] [address] [facility] [place] [address] 04/02/2022 09:30:00 04/02/2022 16:56:26 Hypertensive renal disease 39409418 I12.9 Low sodium diet discussedC ounseled on medication adherence -bp still elevated will increase losartan dose to 50, aware bmp 2 weeks afterCouns eled on diet/exerc iseAdvised to keep BP daily BP log and technique counseled. Red flags of HTN emergency discussed and when to go to ED. Erythrocytosis 086116895 D75.1 reminded to get sleep study, stay hydrated and if sleep study wnl will refer to heme risk of elevated h/h discussed. [id number] PETRONA BERGER MD Main Office [address] [facility] [address] [facility] [place] [address] 05/04/2022 09:06:42 05/04/2022 09:35:34 Chronic kidney disease stage 3 775375355 N18.32 - patient has a history CKD stage 3 for which he follows with nephrology - pt creatine as been oscillatin g from 2-2.1- most recent BMP showed creatine of 2.1- will continue to monitor, repeat levels in 3 months Hypertensi ve renal disease 65286644 I12.9 - BP today is 118/27- pt does not check BP at home- will continue with losartan 50mg QD- recent BMP showed stable creatine (as baseline 2.1) Counselled on-Dietary Approaches to Stop Hypertensi on (DASH) is an eating plan rich in fruits, vegetables , whole grains, fish, poultry, nuts, legumes, and low-fat dairy. These foods are high in taylor nutrients such as potassium, magnesium, calcium, fiber, and protein.-A dvised continued adherence to medication s and low salt diet - extensive counsellin g done regarding dietary habits.-En couraged regular aerobic exercise 30 min for 4-5 x week.-BP monitoring at home advised to bring log at every visit-Side -effects of high BP can cause Stroke, Heart attack and even d/w pt-D/w pt when to call 911 or reach out to Health care provider:> Think you are having a reaction to a medicine you are taking.>Anaya ve headaches that keep coming back (recurring ).>Feel dizzy.>Hav e swelling in your ankles.>Anaya ve trouble with your vision. Erythrocytosis 820047046 D75.1 - pt was noted to have a spike in Hb 01/2022 and levels have slowly been trending down, most recent Hb 17.2- pt has completed his sleep study and currently awaiting results- will repeat blood work in 3 months [id number] Van Galo MD Main Office [address] [facility] [address] [facility] [place] [address] 08/09/2022 14:48:41 08/09/2022 15:35:03 Upper respiratory infection 22001395 J06.9 Tylenol 15mg/kg for pain or fever q6h.Throat Lozengessa lt water gargleadeq uate hydration enforced, rest advised.sa line sprayshumi difier use enforced.H oney advised.Te ssalon ludwig sent. Pneumonia 495009875 J18. 9 [id number] Van Galo MD Main Office [address] [address] [place] [address] 03/15/2023 09:44:28 03/15/2023 10:35:42 Adult health examination 206506067 Z00.00 vaccines are up to date. Human immunodeficiency virus infection 63502493 B20 f/u with infectious disease specilaist . Hypertensi ve renal disease 60552788 I12.9 stable on meds. Chronic ki dney disease stage 3 929895454 N18.32 f/u with renal. Mitral valve prolapse 40 2265371 I34.1 stable Mixed hyperlipidemia 267 796457 E78.2 Obstructiv e sleep apnea of adult 0050474401 103 G47.33 Uses CPAP History of malignant basal cell neoplasm of skin 519209701 Z85.828 f/u with dermatolog ist. [id number] Eliazar Hicks MD Main Office [address] [address] [address] [place] [address] 07/29/2023 13:42:37 07/29/2023 14:04:29 Upper respiratory infection 12649684 J06.9 x1 week of cough and congestion -been taking OTC medication for symptomati c relief-den ies of any fever, chills, fatigue, n/v/d-home covid test is negative-w ill order xray and provide tessalon perles x5 days [id number] Van Galo MD Main Office [address] [address] [place] [address] 09/13/2023 09:35:16 09/13/2023 18:47:08 [id number] Van Galo MD Main Office [address] [place] [address] 09/14/2023 12:29:26 09/14/2023 13:34:39 History of repair of mitral valve 800824642 Z98.890 Has ring will need abx. ppx for dental work. Patent foramen ovale 204 209050 Q21.12 s/p repair Transition of care 42899 18212 105 Z75.8 dc summary reviewed. Hematoma o f right thigh 4854274441 0991540 S70.11XA healing well. Atrial fibrillation 4943 6004 I48.91 post operative. Cont cardiac follow up 101019 Van Galo MD Main Office [address] [facility] [address] [facility] [place] [address] 03/16/2024 08:52:36 03/16/2024 09:37:10 Adult health examination 908857144 Z00.00 Patient was counseled on healthy diet, exercise and nutrition due to Body mass index is 25.1 kg/m . Last PSADate: 01/20/22Resu lt: 1.7Plan: Had shared decision, patient opted to hold screening this year. Last Colonoscop y:Date: 05/27/20Res ult: polypsPlan : per GI repeat in 5 yrs Vaccines:T dAP: 02/24/21Zo ster rec: 12/05/21, 03/24/22PCV 13: 07/30/15PCV 20: encourage updated vaccinePPS V23: 07/08/16Inf luenza: 01/17/24Covi d: 01/17/24Monk ey pox: 12/16/21, 01/13/22Men ingitis, up to date. Routine labs reviewed Immunizati on status reviewed. Will screen based on risk factors. Regular dental and ophtho care advised as well as seat belt and sunscreen use. Distracted driving discussed. Medication reconciled . Human immunodeficiency virus infection 00542472 B20 Follows ID, tells me viral load undetectab le Chronic ki dney disease stage 3 126905830 N18.32 Follows Renal: Dr. Jun Blackman Kidney stone 94048267 N2 0.0 Follows: Urology: Dr. Soto to kidney stones. 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 Cont cardiac follow up Pain of le ft temporomandibular joint 3759027387 7876003 M26.622 exercises discussed. advised to also follow dental. [id number] Van Galo MD Main Office [address] [place] [address] 01/15/2025 08:06:22 01/15/2025 13:16:26 [id number] Van Galo MD Main Office [address] [facility] [address] [place] [address] 01/16/2025 08:50:32 01/16/2025 09:31:50 Infection caused by extended spectrum beta-lactamase producing Escherichia coli 290487919 A49.8 Z16.12 3899147 Advised to also call ID so they are aware of his recent infection. Bacteremia 0702402 R78.8 1 45148 Will re-check CBC, 1 week, post abx, tomorrow is last day. Pyelitis 32131154 N12 90703 Acute kidney injury 1466 9001 N17.9 382286 Chronic ki dney disease stage 3 570984053 N18.32 Follows Renal: Dr. Jun Stantonwillard ised to follow up with renal. Human immunodeficiency virus infection 57886828 B20 Follows ID, tells me viral load undetectab le. Kidney stone 12885294 N2 0.0 68670 Follows: Urology: Dr. Soto who has since retired, he will reach out to office to schedule with another urologist. Atrial fibrillation 4943 6004 I48.91 post operative. Cont cardiac follow up Obstructiv e sleep apnea of adult 1712157012 103 G47.33 Dependence on continuous positive airway pressure ventilation 403509690 Z99.11 Nocturia 720496521 R35.1 67057 Liver enzy mes level above reference range 842628336 R74.8 819052 Transition of care 23102 01757 105 Z78.9 39574402 dc summary reviewed. Health Concerns Section Related Observation LastModified by Organization Detai ls LastModified Time None Recorded Concern Status LastModified by Organization Details LastModified Time None Recorded Advance Directives Directive Y: at home Payers Insurance Date Sequence Insurance Name Policy Number Policy Aceves Covered Member ID Aceves Member ID Guarantor Name 02/10/2021 1 [facility] - HEALTH NET PLAN (MEDICAID HMO) [id number] Jero Myers [id number] Jero Myers 01/16/2025 2 [place] [facility] Jero Myers [id number] Jero Myers 01/30/2025 1 [facility] - HEALTH NET PLAN (MEDICAID HMO) [id number] Jero Myers [id number] Jero Myers 02/10/2021 2 [place] [facility] Jero Myers [id number] Jero Myers 02/10/2021 1 [facility] (O) [id number] Jero Myers [id number] Jero Myers Notes Date Note Type Note Provider Name and Address Organization Details Recorded Time 4 text/html Emergency Department Follow-Up RecordReported by PatientEmergency Room Follow-Up RecordFor discharge information, [facility]name [facility],emergency department discharge date: (please enter in format 'mm/dd/yyyy') (08/29/2023), anddate of follow-up phone call: (please enter in format 'mm/dd/yyyy') (09/03/2023).Medicare covered inpatient stay? noTOC with in 48 working hours? yes HCP on file? noMOLST on file? noDischarge Summary available? yesPt scheduled for Mitral Valve Repair with PFO closure. Pt has severe mitral regurgitation secondary to prolapsing of the P2 segment. After repairing the valve while closing the left atrium, the PFO was identified from the left atrial side of the atrial septum. The PFO was closed/repaired.Bilateral groins with bruising and hematomas, no sign of active bleeding, tender to palpation R>L. Pt also returned to [facility] ED on 09/05/2023 due to hematomas, had a CT Angio Pelvis which showed small right inguinal soft tissue hematoma. No active extravasation or pseudoaneurysm. No other significant arterial vascular abnormality of the pelvis. MEDS DISCONTINUEDLosartan MEDS STARTEDMetoprolol XL 50 mg dailyAtorvastatin 80 mg dailyAmiodarone 200 mg BID MEDS RECONCILED Van Galo MD [address] [address], [place], [address], [facility] 09/13/2023 18:47:05 4 text/html Emergency Department Follow-Up RecordReported by PatientEmergency Room Follow-Up RecordFor discharge information, patient reportsname of [facility],emergency department discharge date: (please enter in format 'mm/dd/yyyy') (08/29/2023), anddate of follow-up phone call: (please enter in format 'mm/dd/yyyy') (09/03/2023).Medicare covered inpatient stay? noTOC with in 48 working hours? yes HCP on file? noMOLST on file? noDischarge Summary available? yesPt scheduled for Mitral Valve Repair with PFO closure. Pt has severe mitral regurgitation secondary to prolapsing of the P2 segment. After repairing the valve while closing the left atrium, the PFO was identified from the left atrial side of the atrial septum. The PFO was closed/repaired.Bilateral groins with bruising and hematomas, no sign of active bleeding, tender to palpation R>L. Pt also returned to [facility] ED on 09/05/2023 due to hematomas, had a CT Angio Pelvis which showed small right inguinal soft tissue hematoma. No active extravasation or pseudoaneurysm. No other significant arterial vascular abnormality of the pelvis. 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 Doing well post-op had a hematoma which is healing well.Denies CP, shortness breath, no palpitation. Recovering well.Has ring around valve needs abx ppx for dentist.No some warmth and irritation, saw surgeon office today, improving from prior. Anastasiia larios [facility] 09/22/2023 11:11:49 4 text/html Generic HPI TemplateReported by PatientROS as noted in the HPI Here for wellness visit. Reviewed chronic medications and medical problems. Discussed screening guidelines as well as goals for fitness and weight management. Van Galo MD [address] [address], [place], [address], [facility] 03/16/2024 09:33:17 5 text/html Hospitalization Contact RecordReported by PatientHospitalization Contact RecordFor follow up, [facility],admit date: (please enter in format 'mm/dd/yyyy') (01/09/2025),date of discharge: (please enter in format 'mm/dd/yyyy') (01/11/2025), anddate of contact: (please enter in format 'mm/dd/yyyy') (01/15/2025).Medicare covered inpatient stay? no NILDA with in 48 working hours? yes HCP on file? no MOLST on file? no Discharge Summary available? yes 59 year old male presented to [facility] on 01/09/2025 complaining of fever and malaise. during ED eval noted leukocytosis and CT of abdomen and pelvis showed bilateral pyelitis with bilateral nonobstructive renal stone , associated with bladder mildly distended , and prostate mildly enlarged. DX: pyelitis with bacteremia - has PICC line 7 days antibiotic course until 01/17/2025.acute kidney injury to follow up with nephrology. Car e Coordinator NILDA call to patient, reports stable PICC line in place. Denies fever, chills, nausea,vomiting, chest pain shortness of breath or abdominal pain. Appetite and fluid intake is well. Activities as tolerated . Reviewed and discussed discharge medications , compliant no questions or concerns. Patient scheduled to see PCP tomorrow 01/16/2025 at 9:00am , aware to follow up with renal as well. Van Galo MD [address] [address], [place], [address], [facility] 01/15/2025 13:16:25 5 text/html Hospitalization Contact RecordReported by PatientHospitalization Contact RecordFor follow up, patient reportshospital: [facility],admit date: (please enter in format 'mm/dd/yyyy') (01/09/2025),date of discharge: (please enter in format 'mm/dd/yyyy') (01/11/2025), anddate of contact: (please enter in format 'mm/dd/yyyy') (01/15/2025).Medicare covered inpatient stay? noTOC with in 48 working hours? yes HCP on file? noMOLST on file? noDischarge Summary available? yes 59-year-old male, was admitted to [facility] on 01/09/2025 for fever and malaise. In the ED, he was found to have leukocytosis. CT abdomen/pelvis revealed bilateral pyelitis with bilateral nonobstructive renal calculi, mildly distended bladder, and mildly enlarged prostate. He was diagnosed with pyelitis complicated by bacteremia and started on ertapenem via PICC line for a 7-day course (to complete 01/17/2025). Hospitalization was also notable for acute kidney injury, for which nephrology follow-up was recommended. During a day care home mother NILDA call, the patient reported stability with no fever, chills, nausea, vomiting, chest pain, shortness of breath, or abdominal pain. He reported good appetite and fluid intake, compliance with discharge medications, and activity as tolerated. At today s follow-up visit (01/16/2025), the patient reports he is feeling well. He denies fever, chills, back pain, or abdominal pain. No dysuria discharge is noted, though he does endorse mild burning with urination. He reports adherence to his PICC line antibiotics, with 1 day remaining. He has not yet seen nephrology, urology, or ID since hospitalization. Recent labs showed mild elevation in LFTs, but renal function appears to be improving. He is afebrile, appetite and hydration are good, and he is tolerating activity. PICC line in right upper arm is clean, dry, and intact without signs of infection. He continues to use CPAP and is stable regarding atrial fibrillation. Van Galo MD [address] [facility] [address], [place], [address], [facility] 01/16/2025 09:41:46
--- OUTSIDE RECORDS SUMMARY | 2025-02-18 16:59 | XMS_ITS | Encounter Summary ---
Author Organization [facility] Address [address] [place] [address] Care Team Providers Care Field Service Representative Name Role Phone Physician, Pcp Unknown Primary Care Provider Nubia vailable Encounter Details Date Type Department Care Team (Late st Contact Info) Description 11/27/2024 Lab Requisition [facility] - Main Lab [address] [place] [address] Cynthia Solitario MD [address] [place], [place] [phone] Contact with and (suspected) exposure to infections [...] Procedure Name Priority Date/Time Associated Diagnosis Comments CHLAMYDIA TRACHOMATIS AND NEISSERIA GONORRHOEAE PCR Routine 11/27/2024 12:00 AM EDT Contact with and (suspected) exposure to infections with a predominantly sexual mode of transmission Unspecified abnormal cytological findings in specimens from anus documented in this encounter Results * Chlamydia trachomatis and Neisseria gonorrhoeae molecular study (11/27/2024 12:00 AM EDT) Neisseria gonorrhoeae PCR Negative Negative LAB MOLECULAR DIAGNOSTICS METHOD 11/28/2024 9:35 AM EDT [facility] Chlamydia trachomatis PCR Negative Negative LAB MOLECULAR DIAGNOSTICS METHOD 11/28/2024 9:35 AM EDT [facility] Swab Topography unknown / Unknown 11/27/2024 11/27/2024 7:05 PM EDT us Cynthia Solitario MD LAB MICROBIOLOGY - GENERA L ORDERABLES Final Result [facility] [address] [place] [address], documented in this encounter Visit Diagnoses Diagnosis Contact with and (suspected) exposure to infections with a predominantly sexual mode of transmission Unspecified abnormal cytological findings in specimens from anus documented in this encounter Care Teams Field Service Representative Relationship Specialty Start Date End Date Physician, Pcp Unknown PCP - General 11/28/24 documented as of this encounter
--- OUTSIDE RECORDS SUMMARY | 2025-02-18 16:59 | XMS_ITS | Encounter Summary ---
Author Organization [facility] Address [address] [place] [address] Care Team Providers Care Supervisor Lens Generating Name Role Phone Physician, Pcp Unknown Primary Care Provider Nubia vailable Encounter Details Date Type Department Care Team (Late st Contact Info) Description 09/27/2024 Lab Requisition [facility] - Main Lab [address] [place] [address] Cynthia Solitario MD [address] [place], [place] [id number] Contact with and (suspected) exposure to infections with a predominantly sexual mode of transmission Social History Tobacco Use Types Packs/Day Years [...] CHLAMYDIA TRACHOMATIS AND NEISSERIA GONORRHOEAE PCR Routine 09/27/2024 12:00 AM EDT Contact with and (suspected) exposure to infections with a predominantly sexual mode of transmission documented in this encounter Results * Chlamydia trachomatis and Neisseria gonorrhoeae molecular study (09/27/2024 12:00 AM EDT) Neisseria gonorrhoeae PCR Negative Negative LAB MOLECULAR DIAGNOSTICS METHOD 11/27/2024 1:45 PM EDT [facility] Comment: This specimen type has not been evaluated for this method. Interpret results with caution. Chlamydia trachomatis PCR Negative Negative LAB MOLECULAR DIAGNOSTICS METHOD 11/27/2024 1:45 PM EDT [facility] Comment: This specimen type has not been evaluated for this method. Interpret results with caution. Swab Structure of anterior region of neck / Unknown 09/27/2024 09/27/2024 7:20 PM EDT us Cynthia Solitario MD LAB MICROBIOLOGY - GENERA L ORDERABLES Edited Result - Final [facility] [address] [place] [address], documented in this encounter Visit Diagnoses Diagnosis Contact with and (suspected) exposure to infections with a predominantly sexual mode of transmission documented in this encounter Care Teams Supervisor Lens Generating Relationship Specialty Start Date End Date Physician, Pcp Unknown PCP - General 11/28/24 documented as of this encounter
--- OUTSIDE RECORDS SUMMARY | 2025-02-18 16:59 | XMS_ITS | Data Portability ---
Author Organization DANYA DELGADILLO MD [facility], Main Office Address [address] [place] [id number] Care Team Providers Care Frame Expander Name Role Phone PALOMA GALOFLOR Primary Care Provider [phone] Assessment No assessment recorded. Plan of Treatment Reminders Order Date Submit Date Provider Last Modified By Organization Details Last Modified Time Details Appointments B20 FOLLOW UP 2024 01:00P Jorge Marcelo MD Not available Not available Not available Lab human papillom a virus 16 + 18 + 31 + 33 + 35 + 39 + 45 + 51 + 52 + 56 + 58 + 59 + 66 + 68 DNA, anorecta l 2024 025 [email or web address] [facility], [address] [place] [address], [id number], 02/04/2025 10:09:28 cytology - ANAL PAP 2024 025 [email or web address] [facility], [address] [place] [address], [id number], 02/04/2025 10:09:00 cytology 2024 025 ATHENAFAX [facility], [address] [place] [address], [id number], 11/27/2024 17:18:09 CT RNA, qual, PCR, unspecif ied specimen 2024 025 [email or web address] [facility], [address] [place] [address], [address], 11/27/2024 17:13:47 human papillom a virus 16 + 18 + 31 + 33 + 35 + 39 + 45 + 51 + 52 + 56 + 58 + 59 + 66 + 68 DNA, anorecta l 2024 025 [email or web address] [facility], [address] [place] [address], [id number], 11/27/2024 17:15:37 NG RNA, qual, PCR, unspecif ied specimen 2024 025 [email or web address], [address] [place] [address], [id number], 11/27/2024 17:17:45 chlamydi a trachoma tis + neisseri a gonorrho eae rRNA panel, DYLAN+prob e, nasophar ynx 2024 025 [email or web address] [facility], [address] [place] [address], [id number], 11/27/2024 17:14:38 chlamydi a trachoma tis + neisseri a gonorrho eae rRNA panel, DYLAN+prob e, nasophar ynx 2024 025 [email or web address] [facility], [address] [place] [address], [id number], 09/30/2024 11:58:10 ALT (alanine aminotra nsferase ), serum or plasma 2023 FADY [facility] ([facility] - All Locations), Patient Can Go To The Location Of Their Choice, [id number] 04/23/2024 16:40:29 AST/SGOT (asparta te aminotra nsferase ), serum or plasma 2023 024 FADY [facility] (Centralized Electronic Ordering - All Locations), Patient Can Go To The Location Of Their Choice, 04/23/2024 16:40:28 CT + NG DNA, PCR, unspecif ied specimen 2023 024 FADY [facility] (Centralized Electronic Ordering - All Locations), Patient Can Go To The Location Of Their Choice, [id number] 04/23/2024 16:40:27 creatini ne w/ estimate d GFR (eGFR), serum or plasma 2023 FADY [facility] (Centralized Electronic Ordering - All Locations), Patient Can Go To The Location Of Their Choice, 04/23/2024 16:40:28 HIV-1 RNA, quantita tive, PCR, serum or plasma - HIV vL PCR 2023 FADY [facility] (Centralized Electronic Ordering - All Locations), Patient Can Go To The Location Of Their Choice, 04/23/2024 16:40:27 RPR (rapid plasma reagin), serum 2023 [facility]ADY [facility] (Centralized Electronic Ordering - All Locations), Patient Can Go To The Location Of Their Choice, 04/23/2024 16:40:29 T-cell regulato ry subsets panel, blood 2023 FADY [facility] (Centralized Electronic Ordering - All Locations), Patient Can Go To The Location Of Their Choice, 04/23/2024 16:40:28 culture, wound 2023 FADY [facility] (Centralized Electronic Ordering - All Locations), Patient Can Go To The Location Of Their Choice, 01/02/2024 22:30:52 ALT (alanine aminotra nsferase ), serum or plasma 2023 FADY [facility] (Centralized Electronic Ordering - All Locations), Patient Can Go To The Location Of Their Choice, 01/02/2024 12:29:56 AST/SGOT (asparta te aminotra nsferase ), serum or plasma 2023 FADY [facility] ([facility]ized [facility] Ordering - All Locations), Patient Can Go To The Location Of Their Choice, 01/02/2024 12:29:56 CT + NG DNA, PCR, unspecif ied specimen 2023 FADY [facility] (Centralized [facility] Ordering - All Locations), Patient Can Go To The Location Of Their Choice, 01/02/2024 12:29:55 creatini ne w/ estimate d GFR (eGFR), serum or plasma 2023 024 FADY [facility] (Centralized Electronic Ordering - All Locations), Patient Can Go To The Location Of Their Choice, [id number] 01/02/2024 12:29:55 HIV-1 RNA, quantita tive, PCR, serum or plasma - HIV vL PCR 2023 024 FADY [facility] (Centralized Electronic Ordering - All Locations), Patient Can Go To The Location Of Their Choice, [id number] 01/02/2024 12:29:56 RPR (rapid plasma reagin), serum 2023 024 FADY [facility] (Centralized Electronic Ordering - All Locations), Patient Can Go To The Location Of Their Choice, 01/02/2024 12:29:54 T-cell regulato ry subsets panel, blood 2023 024 FADY [facility] (Centralized Electronic Ordering - All Locations), Patient Can Go To The Location Of Their Choice, [id number] 01/02/2024 12:29:55 unlisted lab - genosure archive( R) 2023 024 [email or web address] [facility] (Centralized Electronic Ordering - All Locations), Patient Can Go To The Location Of Their Choice, 01/09/2024 10:00:00 Referral None recorded . Procedures None recorded . Surgeries cryother apy (SURG) 2024 025 [email or web address] Not available 11/28/2024 10:51:09 Imaging None recorded . Medication Orders hydrocor tisone 2.5 % topical cream 2024 025 [email or web address] [facility]/Pharmacy #0447, [address] [place], [address], 01/29/2025 20:44:26 imiquimo d 3.75 % topical cream packet 2024 025 [facility]/Pharmacy #0447, [address] [place], [address], 11/27/2024 14:21:04 Dovato 50 mg-300 mg tablet 2024 025 cmartorell [facility]/Pharmacy #0447, [address] [place], [address], 11/27/2024 14:00:39 Dovato 50 mg-300 mg tablet 2024 025 [facility]/Pharmacy #0447, [address] [place] [address], [address], 09/27/2024 15:36:51 Dovato 50 mg-300 mg tablet 2023 024 [facility]/Pharmacy #0447, [address] [place], [address], 04/23/2024 16:40:23 doxycycl ine hyclate 100 mg capsule 2023 024 [facility] [address] [place] [address], [address], 01/02/2024 12:40:40 Dovato 50 mg-300 mg tablet 2023 024 cmartorell [facility] #0447, [address] [place], [address], 01/02/2024 12:40:03 Patient TargetsNo targets recorded. Patient Instructions Encounter Date Encounter Id Patient Instructions Last Modified By Organization Details Last Modified Time 11/27/2024 [id number] wart removal: after your visit [email or web address] Not available 11/27/2024 17:37:43 Reason for Referral None Reported. Results Created Date Observation Date Name Description Value Unit Range Abnormal Flag Note LastModifiedBy Organization Detail LastModifiedTime 12/29/1912/30/2023 RNA, REAL TIME PCR (NON- GRAPH ) HIV-1 RNA by PCR <20 copie s/mL HIV-1 RNA not detec divya The repor table range for this assay is 20 to 10,00 0,000 copie s HIV-1 RNA/m L. Not Available [facility] ([facility]) [address] [facility], [place], [address], 12/30/2023 14:06:59 12/29/19 24 12/30/2023 RNA, REAL TIME PCR (NON- GRAPH ) log10 HIV-1 RNA COMMEN T log10 copy/ mL Unabl e to calcu late resul t since non-n umeri c resul t obtai jana for compo nent test. Not Available [facility] ([facility]) [address] [facility], [place], [address], 12/30/2023 14:06:59 01/02/20 24 01/02/2024 ANAER OBIC CULTU RE performing lab [facility], a membe r of [address] [place] [address] Medic al Direc ziggy haro MD Not Available [facility] [address] [place] [address], [address], 01/30/2024 08:29:19 01/02/20 24 01/07/2024 ANAER OBIC CULTU RE anaerobic culture No Anaer obes noted GRAM STAIN RESUL T REFER TO AEROB IC CULTU RE FOR SMEAR RESUL TS Not Available [facility] [address] [place] [address], [address], 01/30/2024 08:29:19 01/02/20 24 01/02/2024 WOUND CULTU RE performing lab [facility], a membe r of [address] [place] [address] Medic al Direc ziggy haro MD Not Available [facility] [address] [place] [address], [address], 01/30/2024 08:29:16 01/02/20 24 01/07/2024 WOUND CULTU RE wound culture GRAM STAIN RESUL T NO POLYS , NO EPITH ELIAL CELLS , NO ORGAN ISMS NOTED STAPH YLOCO CCUS SP COAG NEG ORGAN ISM REPOR T COMME NT SPARS E Not Available [facility] [address] [place] [address], [address], 01/30/2024 08:29:01/02/2001/07/2024 WOUND CULTU RE report Speci men Sourc e: OBR-1 5-1-1 Colle cted: Jan 02, 2024 13:35 ----- ----- ----- ----- ----- ----- ----- ----- ----- ----- ----- ----- ----- ----- ----- ----- Organ ism: STAPH YLOCO CCUS SP COAG NEG Antib iotic s Unkno wn Inter preta tion ----- ----- ----- ----- ----- ----- ----- ----- ----- ----- ----- ----- ----- ----- ----- ----- OXACI LLIN <=0.2 5 Sensi tive CIPRO FLOXA DEYSI <=0.5 Sensi tive CLIND AMYCI N <=0.2 5 Sensi tive ERYTH ROMYC IN <=0.2 5 Sensi tive GENTA MICIN <=0.5 Sensi tive LEVOF LOXAC IN <=0.1 2 Sensi tive PENIC ILLIN 0.25 Resis tant TETRA CYCLI NE >=16 Resis tant VANCO MYCIN 1 Sensi tive RIFAM PIN <=0.5 Sensi tive Not Available [facility] [address] [place], [address], 01/30/2024 08:29:16 01/02/20 24 01/02/2024 FUNGU S CULTU RE,OT HER performing lab [facility], a [facility]ichol [facility] [employer] [address] [facility] [place] [address] Medic al Direc tor - Tahir haro MD Not Available [facility] [address] [place], [address], 01/30/2024 08:29:22 01/02/20 24 01/30/2024 FUNGU S CULTU RE,OT HER fungus culture,othe r Negati ve for Fungus after 4 weeks Not Available [facility] [address] [place] [address], [address], 01/30/2024 08:29:22 09/26/19 25 09/25/2024 CBC/D /PLT W/ REFLE X VERNON TIN WBC 6.5 x10e3 /uL 3.4-10 .8 normal Not Available [facility] ([facility]) [address] [place], [address], 10/03/2024 20:09:21 09/26/19 25 09/25/2024 CBC/D /PLT W/ REFLE X VERNON TIN RBC 5.40 x10e6 /uL 4.14-5 .80 normal Not Available [facility] ([facility]) [address] [place], [address], 10/03/2024 20:09:21 09/26/19 25 09/25/2024 CBC/D /PLT W/ REFLE X VERNON TIN hemoglobin 18.5 g/dL 13.0-1 7.7 above high normal Not Available [facility] ([facility]) [address] [place], [address], 10/03/2024 20:09:21 09/26/19 25 09/25/2024 CBC/D /PLT W/ REFLE X VERNON TIN hematocrit 54.7 % 37.5-5 1.0 above high normal Not Available [facility] ([facility]) [address] [place], [address], 10/03/2024 20:09:21 09/26/19 25 09/25/2024 CBC/D /PLT W/ REFLE X VERNON TIN MCV 101 fL 79-97 above high normal Not Available [facility] ([facility]) [address] [place], [address], 10/03/2024 20:09:21 09/26/19 25 09/25/2024 CBC/D /PLT W/ REFLE X VERNON TIN MCH 34.3 pg 26.6-3 3.0 above high normal Not Available [facility] ([facility]) [address] [facility], [place], [address], 10/03/2024 20:09:21 09/26/19 25 09/25/2024 CBC/D /PLT W/ REFLE X VERNON TIN MCHC 33.8 g/dL 31.5-3 5.7 normal Not Available [facility] ([facility]) [address] [place], [address], 10/03/2024 20:09:21 09/26/19 25 09/25/2024 CBC/D /PLT W/ REFLE X VERNON TIN RDW 13.3 % 11.6-1 5.4 Not Available [facility] ([facility]) [address] [facility], [place], [address], 10/03/2024 20:09:21 09/26/19 25 09/25/2024 CBC/D /PLT W/ REFLE X VERNON TIN platelets 143 x10e3 /uL 150-45 0 below low normal Not Available [facility] ([facility]) [address] [facility], [place], [address], 10/03/2024 20:09:21 09/26/19 25 09/25/2024 CBC/D /PLT W/ REFLE X VERNON TIN neutrophils 45 % not estab. normal Not Available [facility] ([facility]) [address] [place], [address], 10/03/2024 20:09:21 09/26/19 25 09/25/2024 CBC/D /PLT W/ REFLE X VERNON TIN lymphs 38 % not estab. normal Not Available [facility] ([facility]) [address] [place], [address], 10/03/2024 20:09:21 09/26/19 25 09/25/2024 CBC/D /PLT W/ REFLE X VERNON TIN monocytes 9 % not estab. normal Not Available [facility] ([facility]) [address] [facility], [place], [address], 10/03/2024 20:09:21 09/26/19 25 09/25/2024 CBC/D /PLT W/ REFLE X VERNON TIN eos 7 % not estab. normal Not Available [facility] ([facility]) [address] [facility], [place], [address], 10/03/2024 20:09:21 09/26/19 25 09/25/2024 CBC/D /PLT W/ REFLE X VERNON TIN basos 1 % not estab. normal Not Available [facility] ([facility]) [address] [facility], [place], [address], 10/03/2024 20:09:21 09/26/19 25 09/25/2024 CBC/D /PLT W/ REFLE X VERNON TIN immature cells MAGNETIC TESTER Not Available [facility] ([facility]) [address] [facility], [place], [address], 10/03/2024 20:09:21 09/26/19 25 09/25/2024 CBC/D /PLT W/ REFLE X VERNON TIN neutrophils (absolute) 2.9 x10e3 /uL 1.4-7. 0 normal Not Available [facility] ([facility]) [address] [facility], [place], [address], 10/03/2024 20:09:21 09/26/19 25 09/25/2024 CBC/D /PLT W/ REFLE X VERNON TIN lymphs (absolute) 2.4 x10e3 /uL 0.7-3. 1 normal Not Available [facility] ([facility]) [address] [facility], [place], [address], 10/03/2024 20:09:21 09/26/19 25 09/25/2024 CBC/D /PLT W/ REFLE X VERNON TIN monocytes(ab solute) 0.6 x10e3 /uL 0.1-0. 9 normal Not Available [facility] ([facility]) [address] [facility], [place], [address], 10/03/2024 20:09:21 09/26/19 25 09/25/2024 CBC/D /PLT W/ REFLE X VERNON TIN eos (absolute) 0.4 x10e3 /uL 0.0-0. 4 normal Not Available [facility] ([facility]) [address] [place], [address], 10/03/2024 20:09:21 09/26/19 25 09/25/2024 CBC/D /PLT W/ REFLE X VERNON TIN baso (absolute) 0.1 x10e3 /uL 0.0-0. 2 normal Not Available [facility] ([facility]) [address] [facility], [place], [address], 10/03/2024 20:09:21 09/26/19 25 09/25/2024 CBC/D /PLT W/ REFLE X VERNON TIN immature granulocytes 0 % not estab. Not Available [facility] ([facility]) [address] [place], [address], 10/03/2024 20:09:21 09/26/19 25 09/25/2024 CBC/D /PLT W/ REFLE X VERNON TIN immature grans (abs) 0.0 x10e3 /uL 0.0-0. 1 Not Available [facility] ([facility]) [address] [place], [address], 10/03/2024 20:09:21 09/26/19 25 09/25/2024 CBC/D /PLT W/ REFLE X VERNON TIN NRBC MAGNETIC TESTER Not Available [facility] ([facility]) [address] [place], [address], 10/03/2024 20:09:21 09/26/19 25 09/25/2024 CBC/D /PLT W/ REFLE X VERNON TIN hematology comments: MAGNETIC TESTER Not Available [facility] ([facility]) [address] [facility], [place], [address], 10/03/2024 20:09:21 09/26/19 25 09/28/2024 RNA PCR GRAPH RFX PRIME /ARCH HIV-1 RNA by PCR <20 copie s/mL HIV-1 RNA not detec divya The repor table range for this assay is 20 to 10,00 0,000 copie s HIV-1 RNA/m L. Not Available [employer] [address] [place] [address], [address], 10/03/2024 20:09:22 09/26/19 25 09/28/2024 RNA PCR GRAPH RFX PRIME /ARCH log10 HIV-1 RNA COMMEN T log10 copy/ mL Unabl e to calcu late resul t since non-n umeri c resul t obtai jana for compo nent test. Not Available [employer] [address] [place] [address], [place], [address], 10/03/2024 20:09:22 09/26/19 25 09/28/2024 RNA PCR GRAPH RFX PRIME /ARCH reflex to prime or archive Commen t Refle x to GenoS ure Archi ve indic ated. Not Available [employer] [address] [place] [address], [place], [address], 10/03/2024 20:09:22 09/26/19 25 09/28/2024 RNA PCR GRAPH RFX PRIME /ARCH pdf . Not Available [employer] [address] [place] [address], [address], 10/03/2024 20:09:22 09/26/19 25 10/02/2024 GENOS URE ARCHI VE(R) pdf COMMEN T Test not perfo rmed. The requi red speci men for the test order ed was not recei dez. ON speci men lable was FR WHOBL but its FR PL. Not Available [employer] [address], [place], [address], 10/03/2024 20:09:22 09/26/19 25 10/02/2024 GENOS URE ARCHI VE(R) HIV genosure archive MAGNETIC TESTER Not Available [employer] [address], [place], [address], 10/03/2024 20:09:22 09/26/19 25 10/02/2024 GENOS URE ARCHI VE(R) HIV genosure archive MAGNETIC TESTER Not Available [employer] [address], [place], [address], 10/03/2024 20:09:22 09/26/19 25 10/02/2024 GENOS URE ARCHI VE(R) HIV genosure archive interp MAGNETIC TESTER Not Available [employer] [address], [place], [address], 10/03/2024 20:09:22 09/26/19 25 09/28/2024 CT, NG, MYCOP LASMA S DYLAN, URINE mycoplasma hominis DYLAN Negati ve negati ve Not Available [facility] ([facility]) [address] [place], [address], 10/03/2024 20:09:22 09/26/19 25 09/28/2024 CT, NG, MYCOP LASMA S DYLAN, URINE ureaplasma spp DYLAN Negati ve negati ve Not Available [facility] ([facility]) [address] [place], [address], 10/03/2024 20:09:22 09/26/19 25 09/29/2024 CT, NG, MYCOP LASMA S DYLAN, URINE mycoplasma genitalium DYLAN Negati ve negati ve Not Available [facility] ([facility]) [address] [place], [address], 10/03/2024 20:09:22 09/26/19 25 09/29/2024 CT, NG, MYCOP LASMA S DYLAN, URINE chlamydia trachomatis, DYLAN Negati ve negati ve Not Available [facility] ([facility]) [address] [place], [address], 10/03/2024 20:09:22 09/26/19 25 09/29/2024 CT, NG, MYCOP LASMA S DYLAN, URINE neisseria gonorrhoeae, DYLAN Negati ve negati ve Not Available [facility] ([facility]) [address] [place], [address], 10/03/2024 20:09:22 09/26/19 25 2024 GLOM FILT RATE, ESTIM ATED creatinine 2.11 mg/dL 0.76-1 .27 above high normal Not Available [facility] ([facility]) [address] [place], [address], 10/03/2024 20:09:23 09/26/19 25 2024 GLOM FILT RATE, ESTIM ATED eGFR 35 mL/mi n/1.7 3 >59 below low normal Not Available [facility] ([facility]) [address] [place], [address], 10/03/2024 20:09:23 09/26/19 25 2024 PREP: RPR W/REF ELISSA TO TITER RPR Non Reacti ve non reacti ve Not Available [facility] ([facility]) [address] [place], [address], 10/03/2024 20:09:23 09/26/19 25 2024 AST (SGOT ) AST (SGOT) 34 IU/L 0-40 normal Not Available [facility] ([facility]) [address] [place], [address], 10/03/2024 20:09:23 09/26/19 25 2024 ALT (SGPT ) ALT (SGPT) 44 IU/L 0-44 normal Not Available [facility] ([facility]) [address] [facility], [place], [address], 10/03/2024 20:09:23 09/26/19 25 10/02/[address] PROBL EM request problem COMMEN T Test not perfo rmed. The requi red speci men for the test order ed was not recei dez. TEST: [id number] GenoS ure Archi ve(R) ON speci men lable was FR WHOBL but its FR PL. Not Available [facility] ([facility]) [address] [facility], [place], [address], 10/03/2024 20:09:24 09/26/19 25 10/18/[address] PROBL EM request problem COMMEN T [facility] will conta ct your patie nt to sched ule a time for recol lecti on. Shoul d we be unabl e to make conta ct with your patie nt, your offic e will be notif ied. Patie nt will be conta cted for recol lecti on of test code 06496 6 - GenoS ure Archi ve (R). Not Available [facility] ([facility]) [address] [facility], [place], [address], 10/18/2024 14:06:16 09/28/19 25 09/27/2024 CHLAM YDIA TRACH OMATI S AND NEISS ERIA GONOR RHOEA E MOLEC ULAR STUDY .note See Note Origi nal Order ing Provi catarina: SAMINA Ricardo MARTTruong [facility] at[facility] - [address] [facility], [place] [address] Not Available [facility] [address] [facility], [place], [address], 09/28/2024 08:36:08 09/28/19 25 09/27/2024 CHLAM YDIA TRACH OMATI S AND NEISS ERIA GONOR RHOEA E MOLEC ULAR STUDY neisseria gonorrhoeae PCR Negati ve negati ve Not Available [facility] [address] [place] [address], [address], 09/28/2024 08:36:08 09/28/19 25 09/27/2024 CHLAM YDIA TRACH OMATI S AND NEISS ERIA GONOR RHOEA E MOLEC ULAR STUDY chlamydia trachomatis PCR Negati ve negati ve Not Available [facility] [address] [place] [address], [address], 09/28/2024 08:36:08 09/28/19 25 09/27/2024 CHLAM YDIA TRACH OMATI S AND NEISS ERIA GONOR RHOEA E MOLEC ULAR STUDY .note See Note Origi nal Order ing Provi catarina: SAMINA Ricardo MARTTruong [facility] - Labor [facility]ory - [address] [facility], [place], [facility] [place] [address] Not Available [facility] [address] [place] [address], [address], 11/27/2024 14:13:38 09/28/19 25 09/27/2024 CHLAM YDIA TRACH OMATI S AND NEISS ERIA GONOR RHOEA E MOLEC ULAR STUDY neisseria gonorrhoeae PCR Negati ve negati ve This speci men type has not been evalu ated for this metho d. Inter pret resul ts with cauti on. Not Available [facility] [address] [place] [address], [address], 11/27/2024 14:13:38 09/28/19 25 09/27/2024 CHLAM YDIA TRACH OMATI S AND NEISS ERIA GONOR RHOEA E MOLEC ULAR STUDY chlamydia trachomatis PCR Negati ve negati ve This speci men type has not been evalu ated for this metho d. Inter pret resul ts with cauti on. Not Available [facility] [address] [place] [address], [address], 11/27/2024 14:13:38 11/28/19 25 11/27/2024 CHLAM YDIA TRACH OMATI S AND NEISS ERIA GONOR RHOEA E MOLEC ULAR STUDY .note See Note Origi nal Order ing Provi catarina: SAMINA ROBERTS [facility] - [address] [facility], [facility], [facility] [place] [address] Not Available [facility] [address] [place], [address], 11/28/2024 09:37:07 11/28/19 25 11/27/2024 CHLAM YDIA TRACH OMATI S AND NEISS ERIA GONOR RHOEA E MOLEC ULAR STUDY neisseria gonorrhoeae PCR Negati ve negati ve Not Available [facility] [address] [place] [address], [address], 11/28/2024 09:37:07 11/28/19 25 11/27/2024 CHLAM YDIA TRACH OMATI S AND NEISS ERIA GONOR RHOEA E MOLEC ULAR STUDY chlamydia trachomatis PCR Negati ve negati ve Not Available [facility] [address] [place] [address], [address], 11/28/2024 09:37:07 11/30/19 25 11/29/2024 NON-G YNECO LOGIC CYTOL OGY .note See Note Origi nal Order ing Provi catarina: SAMINA GALICIAL [facility] - Labor [facility] - [address] [facility], [facility], [facility] [place] [address] Not Available [facility] [address] [place] [address], [address], 11/29/2024 16:56:13 11/30/19 25 11/29/2024 NON-G YNECO LOGIC CYTOL OGY final diagnosis A. Anus, Anal pap, (ThinP rep): Unsat isfac tory for evalu ation due to scant (nucl eated ) squam ous cellu larit y. Elect stefanie argueta d by Anusha haro MD on 2024 at 3:57 PM Not Available [facility] [address] [place] [address], [address], 11/29/2024 16:56:13 11/30/19 25 11/29/2024 NON-G YNECO LOGIC CYTOL OGY specimen A adequacy Specim en proces sed and examin ed, but unsati sfacto ry for eval of abnorm al epithe lial Not Available [facility] [address] [place], [address], 11/29/2024 16:56:13 11/30/19 25 11/29/2024 NON-G YNECO LOGIC CYTOL OGY gross description A. Anus, Anal pap: 1 pap vial recei dez, clear fluid , 1 Thin prep. Not Available [facility] [address] [place], [address], 11/29/2024 16:56:13 11/30/19 25 11/29/2024 NON-G YNECO LOGIC CYTOL OGY disclaimer Unless otherw ise specif ied, all tissue is 10% NB formal in fixed and paraff in embedd ed. Techn ical cytop athol ogy servi shantel provi ded by Lavinia turner of [employer], at [address] [facility] [address], [place] [address] (CLIA # [id number] /Melquiades balderrama MD, Medic al Direc tor.) Not Available [facility] [address] [place], [address], 11/29/2024 16:56:13 Result Notes None recorded. 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 DANYA Woodson MD [facility] 5 15:02:36 Acute bronchiti s 46252647 Active 2012 DANYA Woodson MD [facility] 5 15:02:36 Laborator y procedure performed 337968842 Active 2012 DANYA Woodson MD [facility] 5 15:02:36 Hypoglyce samia 719809897 Active 2012 DANYA Woodson MD [facility] 5 15:02:36 Hypertrop hy of breast 866993088 Active 2012 DANYA Woodson MD [facility] 5 15:02:36 Chronic sinusitis 16919622 Active 2012 DANYA Woodson MD [facility] 5 15:02:36 Cough 16886342 Active 2012 DANYA Woodson MD [facility] 5 15:02:37 Disorder of skin 97645712 Active 2012 DANYA Woodson MD [facility] 5 15:02:37 Influenza vaccine needed 49744726668 06 Active 2013 DANYA Woodson MD [facility] 5 15:02:36 Polycythe samia vera (clinical ) 990258159 Active 2013 DANYA Woodson MD [facility] 5 15:02:36 Tobacco user 806708181 Active 2013 DANYA Woodson MD [facility] 5 15:02:36 Pneumonia 247641665 Active 2013 DANYA Woodson MD [facility] 5 15:02:36 Bronchiti s 31277259 Active 2013 DANYA Woodson MD [facility] 5 15:02:36 Dysplasia of anus 091508898 Active 2013 DANYA Woodson MD [facility] 5 15:02:36 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 432575021 Active 2013 DANYA Woodson MD [facility] 5 15:02:36 Hyperlipi demia 15250292 Active 2013 DANYA Woodson MD [facility] 5 15:02:37 Mitral valve disorder 05482782 Active 2013 DANYA Woodson MD [facility] 5 15:02:36 Herpes zoster 7960092 Active 2016 DANYA Woodson MD [facility] 5 15:02:36 Kidney disease 62070615 Active 2016 DANYA Woodson MD [facility] 5 15:02:37 Mixed hyperlipi demia 478693698 Active 2017 DANYA Woodson MD [facility] 5 15:02:36 Herpesvir us infection 00204433 Active 2017 Herpesvir al infection , unspecifi ed; snomeddes cription: Herpes simplex; Report Immunity to Registry: Yes; Notes: HSV 1 pos; HSV 2 neg; Not Available [facility] 4 06:58:36 Herpes simplex 90118569 Active 2017 Herpes simplex; snomeddes cription: Herpes simplex; Report Immunity to Registry: Yes; Notes: HSV 1 pos; HSV 2 neg; Not Available [facility] 4 06:58:36 Lesion of skin of face 34370325503 6 Active 2018 DANYA Woodson MD [facility] 5 15:02:36 Pruritic disorder 556626179 Active 2018 DANYA Woodson MD [facility] 5 15:02:36 Adenomato us polyp of colon 934009547 Active 2020 DANYA Woodson MD [facility] 5 15:02:36 Kidney stone 90927278 Active 2020 DANYA Woodson MD [facility] 5 15:02:37 Proteinur ia 66196624 Active 2020 DANYA Woodson MD [facility] 5 15:02:36 Chronic kidney disease stage 3 835171052 Active 2020 DANYA Woodson MD [facility] 5 15:02:36 Chronic renal impairmen t Active 2020 Chronic kidney disease, unspecifi ed; snomeddes cription: Chronic progressi ve renal failure; Report Immunity to Registry: Yes; Notes: GFR=37 2017; 2018; 2019;2019; Not Available [facility] 4 06:58:36 Chronic progressi ve renal failure 061744559 Active 2020 Chronic progressi ve renal failure; snomeddes cription: Chronic progressi ve renal failure; Report Immunity to Registry: Yes; Notes: GFR=37 2016; 2018; 2019;2019; Not Available [facility] 4 06:58:36 Hypertens basim renal disease 71531067 Active 2021 DANYA Woodson MD [facility] 5 15:02:36 Obstructi ve sleep apnea of adult 93787395139 03 Active 2021 DANYA Woodson MD [facility] 5 15:02:36 Mitral valve prolapse 774892953 Active 2022 DANYA Woodson MD [facility] 5 15:02:36 History of malignant basal cell neoplasm of skin 357030997 Active 2022 DANYA Woodson MD [facility] 5 15:02:36 Atrial fibrillat ion 49706304 Active 2022 DANYA Woodson MD [facility] 5 15:02:37 History of repair of mitral valve 417607702 Active 2023 DANYA Woodson MD [facility] 5 15:02:36 Coronary arteriosc lerosis 26038147 Active 2023 DANYA Woodson MD [facility] 5 15:02:37 Chronic kidney disease 156550386 Active 2023 Eladio Marcelo MD [address] [place] [address], [id number] , DANYA MARCELO MD [facility] 4 12:40:51 Basal cell carcinoma of skin 107103769 Active 2023 DANYA Woodson MD [facility] 5 15:02:36 History of SARS-CoV- 2 67980826239 8598854 Active 2023 DNAYA Woodson MD [facility] 5 15:02:36 History of calculus of kidney 497876363 Active 2023 DANYA Woodson MD [facility] 5 15:02:36 Dependenc e on continuou s positive airway pressure ventilati on 880688342 Active 2023 DANYA Woodson MD [facility] 5 15:02:36 History of herpes zoster 50966330094 9108 Active 2023 DANYA oWodson MD [facility] 5 15:02:37 Notes:Some problems listed i n Document: #[id number] could not be added to this patient's chart. Please review this document and add these problems to the patient's chart manually as needed. Problem Notes None recorded. Medical Equipment None Reported. Allergies Allergen ID Allergen Name Allergen Category Reaction Reaction Severity Criticality Documentation Date Start Date Code Code System Note Provider Name and Address Organization Details Recorded Time 1463 Substance with sulfonami de structure and antibacte rial mechanism of action (substanc e) medicatio n Not available Not available Not available 01/29/20252013 54404 8003 SNOMED DANYA Woodson MD [facility] 15:02:33 1464 lisinopri l medicatio n cough Not available Not available 01/29/2025 70764 RxNorm DANYA Woodson MD [facility] 5 15:02:33 Medications Name Sig Start Date Stop Date Status Note LastModified by Organization Details LastModified Time losartan 50 mg tablet TAKE 1 TABLET BY MOUTH EVERY DAY IN THE EVENING 09/13 completed Not Available Not Available Not Available [...] ritonavir 100 mg capsule DAILY 07/15 completed Not Available Not Available Not Available Pneumovax -23 25 mcg/0.5 mL injection solution - Quantity : ; 0 refill(s ) 06/16 completed VACCINE_ IND: yes; VACCINE_ NAME: pneumoco ccal polysacc haride PPV23; SU_FULL_ NAME: Ealdio guzman; Not Available Not Available Not Available tizanidin [...] vir 1 gram tablet DAILY 11/26 completed Not Available Not Available Not Available prednison e 20 mg tablet Take 2 tablets every day by oral route for 5 days. 11/26 completed Not Available Not Available Not Available moxifloxa deysi 400 mg tablet TAKE 1 TABLET BY MOUTH EVERY DAY FOR 5 DAYS 03/24 completed Not Available Not Available Not Available Zithromax Z-Tyler 250 mg tablet QD 11/17 completed Not Available Not Available Not Available pseudoeph edrine ER 120 mg tablet,ex tended release Take 1 tablet every 12 hours by oral route for 10 days. 03/15 completed Not Available Not Available Not Available valacyclo vir 500 mg tablet 11/26 completed Not Available Not Available Not Available Morphine Sulfate CR 15 mg tablet,ex tended release FOUR TIMES DAILY, NEEDED 09/01 completed Not Available Not Available Not Available sildenafi l 25 mg tablet 30 MINUTES PRIOR TO INTERCOU RSE, PRN 07/15 completed Not Available Not Available Not Available aspirin [...] Not Available tamsulosi n 0.4 mg capsule Take 1 capsule every day by oral route for 90 days. 2024 active Not Available Not Available Not Avai lable imiquimod 5 % topical cream packet ADITI AA D UTD 09/26 completed Duration : 12; VACCINE_ IND: no; Not Available Not Available Not Available potassium citrate ER 10 mEq (1,080 mg) tablet,ex tended release EVERY TWELVE HOURS 07/15 completed Not Available Not Available Not Available benzonata te 100 mg capsule TAKE 1 CAPSULE BY MOUTH THREE TIMES A DAY NEEDED FOR 5 DAYS 09/12 completed Not Available Not Available Not Available lisinopri l 10 mg tablet 10 mg Quantity : 30.000; Duration : 30; 7 refill(s ) 07/31 completed Duration : 30; VACCINE_ IND: no; Not Available Not Available Not Available Qvar 40 mcg/actua tion Metered Aerosol oral inhaler Inhale 2 puffs twice a day by inhalati on route for 30 days. 11/25 completed Not Available Not Available Not Available losartan 25 mg tablet POTASSIU M 25 MG TAB; Quantity : 90; Duration : 90; 0 refill(s ) 06/29 completed Duration : 90; VACCINE_ IND: no; Not Available Not Available Not Available Advair Diskus 250 mcg-50 mcg/dose powder for inhalatio n TWO TIMES DAILY 11/26 completed Not Available Not Available Not Available gabapenti n 300 mg capsule TAKE 1 CAPSULE BY MOUTH EVERYDAY AT BEDTIME 07/28 completed Not Available Not Available Not Available diclofena c sodium 75 mg tablet,de layed release Take 1 tablet every day by oral route for 30 days. 07/28 completed Not Available Not Available Not Available hydrocort isone 2.5 % topical cream APPLY A THIN LAYER TO THE AFFECTED AREA(S) BY TOPICAL ROUTE 2 TIMES PER DAY 2024 active Not Available Not Available Not Avai lable codeine 10 mg-guaife nesin 100 mg/5 mL [...] completed Not Available Not Available Not Available Benadryl 25 mg capsule 25 mg Quantity : 60; 3 refill(s ) 09/21 completed Frequenc y: qhs; VACCINE_ IND: no; SU_FULL_ NAME: Eladio Milligancinthya guzman; Not Available Not Available Not Available azithromy deysi 500 mg tablet 1 tab po qd 07/31 completed VACCINE_ IND: no; SU_FULL_ NAME: Eladio Martcinthya guzman; Not Available Not Available Not Available moxifloxa deysi 0.5 % eye drops INSTILL 1 DROP INTO THE AFFECTED EYE Q 2 FOR 3 DAYS UTD. 02/16 completed Not Available Not Available Not Available Levitra 10 mg tablet 10 mg Quantity : 30; 0 refill(s ) 07/31 completed Frequenc y: qd; VACCINE_ IND: no; SU_FULL_ NAME: Eladio Martcinthya guzman; Not Available Not Available Not Available tadalafil 5 mg tablet Take 1 tablet every day by oral route as needed. 03/16 completed Not Available Not Available Not Available tadalafil 20 mg tablet TAKE ONE TABLET BY MOUTH EVERY DAY NEEDED active Not Available Not Available No t Available abacavir 600 mg-lamivu dine 300 mg tablet DAILY 07/15 completed Not Available Not Available Not Available Menactra (PF) 4 mcg/0.5 mL intramusc ular solution - Quantity : 1; Duration : 1; 0 refill(s ) 12/29 completed Frequenc y: x1; Duration : 1; VACCINE_ IND: no; VACCINE_ NAME: meningoc occal MCV4P; SU_FULL_ NAME: Eladio guzman; Not Available Not Available Not Available Adacel (Tdap Adolesn/A dult)(PF) 2Lf-(2.5- 5-3-5mcg) -5 Lf/0.5 mL IM susp 5 units-2 units-15 .5 mcg/0.5 mL Quantity : ; 0 refill(s ) 11/24 completed VACCINE_ IND: yes; VACCINE_ NAME: Tdap; SU_FULL_ NAME: Eladio guzman; VIS_DATE : 17:41:01 .0; Not Available Not Available Not Available Gardasil (PF) 20mcg-40m cg-40mcg- 20mcg/0.5 mL intramusc ular suspensio n type 6,11,16, 18 Quantity : ; 0 refill(s ) 2013 active VACCINE_ IND: yes; VACCINE_ NAME: HPV, quadriva lent; SU_FULL_ NAME: Eladio Llanos; Not Available Not Available Not Available atazanavi r 300 mg capsule EVERY MORNING 07/15 completed Not Available Not Available Not Available Anti-Itch (hydrocor tisone) 1 % topical cream 1% Quantity : 1; 0 refill(s ) 09/21 completed Frequenc y: qd; VACCINE_ IND: no; SU_FULL_ NAME: Eladio guzman; Not Available Not Available Not Available Engerix-B (PF) 20 mcg/mL intramusc ular suspensio n 20 mcg/mL Quantity : 1; Duration : 1; 0 refill(s ) 06/16 completed Duration : 1; VACCINE_ IND: no; VACCINE_ NAME: Hep B, adult; Not Available Not Available Not Available raltegrav ir 400 mg tablet DAILY 11/26 completed Not Available Not Available Not Available Charlotte Alexis-C-Y-W-1 35-Dip (PF) 10 mcg-5 mcg/0.5 mL IM kit (2 vials) - Quantity : ; 0 refill(s ) 2018 active VACCINE_ IND: yes; VACCINE_ NAME: Meningoc occal MCV4O; SU_FULL_ NAME: Eladio guzman; VIS_DATE : 16:14:29 .0; Not Available Not Available Not Available Prevnar 13 (PF) 0.5 mL intramusc ular syringe - Quantity : 5; Duration : 1; 0 refill(s ) 01/04 completed Duration : 1; VACCINE_ IND: no; VACCINE_ NAME: Pneumoco ccal conjugat e PCV 13; Not Available Not Available Not Available imiquimod 3.75 % topical cream packet APPLY CONTENTS OF ONE PACKET TO THE AFFECTED AREA(S) BY TOPICAL ROUTE TIW AT BEDTIME ; RUB IN; AFTER 8 HRS WASH OFF W/SOAP AND WATER 2024 active Not Available Not Available Not Avai lable Robitussi n DM To Go 5cc po q 6 hrs prn 09/24 completed VACCINE_ IND: no; SU_FULL_ NAME: Eladio guzman; Not Available Not Available Not Available Flulaval 45 mcg (15 mcg x 3)/0.5 mL intramusc ular suspensio n - Quantity : ; Duration : 30; 0 refill(s ) 07/07 completed Duration : 30; VACCINE_ IND: yes; VACCINE_ NAME: Influenz a, seasonal , injectab le; SU_FULL_ NAME: Eladio Llanos; VIS_DATE : 18:34:48 .0; Not Available Not Available Not Available Eliquis [...] (15 mcg x 4)/0.5 mL IM syringe preserva tive-jarvis e quadriva lent Quantity : 5; Duration : 1; 0 refill(s ) 01/04 completed Duration : 1; VACCINE_ IND: no; VACCINE_ NAME: influenz a, injectab le, quadriva lent, preserva tive free; Not Available Not Available Not Available Genvoya 150 mg-150 mg-200 mg-10 mg tablet Take 1 tablet every day by oral route for 30 days. 10/27 completed Not Available Not Available Not Available Fluvirin 45 mcg (15 mcg x 3)/0.5 mL intramusc ular suspensio n ADM 0.5ML IM UTD 06/16 completed Duration : 1; VACCINE_ IND: no; VACCINE_ NAME: Influenz a, seasonal , injectab le; Not Available Not Available Not Available Flucelvax Quad (PF) 60 mcg (15 mcg x 4)/0.5 mL IM syringe preserva tive-jarvis e mdck cell derived quadriva lent Quantity : 5; Duration : 1; 0 refill(s ) 06/28 completed Duration : 1; VACCINE_ IND: no; VACCINE_ NAME: Influenz a, injectab le, MDCK, preserva tive free, quadriva lent; Not Available Not Available Not Available Shingrix (PF) 50 mcg/0.5 mL intramusc ular suspensio n, kit adjuvant ed Quantity : ; 0 refill(s ) 2021 active VACCINE_ IND: yes; VACCINE_ NAME: zoster recombin ant; Not Available Not Available Not Available Biktarvy 50 mg-200 mg-25 mg tablet TAKE 1 TABLET BY MOUTH EVERY DAY 03/10 completed Not Available Not Available Not Available Lidocaine Pain Relief 4 % topical patch 4% Quantity : 30; Duration : 30; 3 refill(s ) 11/24 completed Frequenc y: As Directed ; Duration : 30; VACCINE_ IND: no; SU_FULL_ NAME: Eladio guzman; Not Available Not Available Not Available Afluria Quad 60 mcg (15 mcg x 4)/0.5 mL IM suspensio n quadriva lent Quantity : ; 0 refill(s ) 2018 active VACCINE_ IND: yes; VACCINE_ NAME: influenz a, injectab le, quadriva lent; SU_FULL_ NAME: Eladio guzman; VIS_DATE : 16:13:33 .0; Not Available Not Available Not Available Dovato 50 mg-300 mg tablet TAKE 1 TABLET BY MOUTH EVERY DAY active Not Available Not Available No t Available Afluria Quad 60 mcg (15 mcg x 4)/0.5 mL intramusc ular susp. quadriva lent Quantity : ; 0 refill(s ) 2018 active VACCINE_ IND: yes; VACCINE_ NAME: influenz a, injectab le, quadriva lent; SU_FULL_ NAME: Eladio guzman; VIS_DATE : 14:24:22 .0; Not Available Not Available Not Available Flulaval Quad (PF) 60 mcg (15 mcg x 4)/0.5 mL IM syringe ADM 0.5ML IM UTD 02/12 completed Not Available Not Available Not Available [facility] COVID-19 Vaccine (PF) 30 mcg/0.3 mL IM susp (purple) 30 mcg/0.3 mL Quantity : ; 0 refill(s ) 2020 active VACCINE_ IND: yes; VACCINE_ NAME: COVID-19 , mRNA, LNP-S, PF, 30 mcg/0.3 mL dose; Not Available Not Available Not Available Pfizer COVID-19 Bivalent (12y up)(PF) 30 mcg/0.3 mL IM suspensio n(EUA) - Quantity : ; 0 refill(s ) 2021 active VACCINE_ IND: yes; VACCINE_ NAME: COVID-19 , mRNA, LNP-S, bivalent , PF, 30 mcg/0.3 mL dose; Not Available Not Available Not Available Vitals Date Recorded Body height Body temperature Body mass index (BMI) Body weight Oxygen saturation Oxygen saturation in Arterial blood by Pulse oximetry Systolic And Diastolic Provider Name and Address Organization Details Last Updated DateTime 5 180.34 cm 97.8 [degF] 25.5 kg/m2 36135.4 g 98 % 98 % 119/89 mm[Hg] Dhruv MARCELO MD [facility] 5 15:15:50 Date Recorded Body height Heart rate Body temperature Body mass index (BMI) Body weight Systolic And Diastolic Provider Name and Address Organization Details Last Updated DateTime 5 180.34 cm 74 /min 98.2 [degF] 25.5 kg/m2 00302.4 g 99/76 mm[Hg] Monica MARCELO MD [facility] 5 13:58:59 Date Recorded Body height Heart rate Respiratory rate Body temperature Body mass index (BMI) Body weight Oxygen saturation Oxygen saturation in Arterial blood by Pulse oximetry Systolic And Diastolic Provider Name and Address Organization Details Last Updated DateTime 4 180.34 cm 58 /min 10 /min 97.7 [degF] 24.4 kg/m2 12545.6 6 g 98 % 98 % 110/80 mm[Hg] Monica MARCELO MD [facility] 4 12:08:12 Date Recorded Body height Heart rate Body temperature Body mass index (BMI) Body weight Systolic And Diastolic Provider Name and Address Organization Details Last Updated DateTime 5 180.34 cm 63 /min 98.4 [degF] 24.1 kg/m2 12633.4 8 g 121/74 mm[Hg] Monica MARCELO MD [facility] 5 15:08:06 Date Recorded Body height Respiratory rate Heart rate Body temperature Body mass index (BMI) Body weight Oxygen saturation Oxygen saturation in Arterial blood by Pulse oximetry Systolic And Diastolic Provider Name and Address Organization Details Last Updated DateTime 4 180.34 cm 10 /min 54 /min 96.4 [degF] 25.2 kg/m2 04950.2 2 g 99 % 99 % 124/82 mm[Hg] Monica MARCELO MD [facility] 4 14:56:13 Social History None recorded. Functional Status None recorded. Mental Status None recorded. Family History Nothing Reported Notes:Heart disease (CAD), R esponse Property: Yes; Medical History No medical history recorded. Immunizations Vaccine Type Date Status Note Provider Nam e and Address Organization Details Recorded Time COVID-19, mRNA, LNP-S, PF, 30 mcg/0.3 mL dose 1 completed DANYA Woodson MD 01/29/2025 15:02:37 Influenza, split virus, quadrivalent, preservative 9 completed DANYA Woodson MD 01/29/2025 15:02:37 zoster recombinant 2 completed DANYA Woodson MD [facility] 01/29/2025 15:02:37 Influenza, split virus, quadrivalent, preservative 9 completed DANYA Woodson MD [facility] 01/29/2025 15:02:37 Meningococcal MCV4O 9 completed Not Available [facility] 07/06/2023 06:54:49 COVID-19, mRNA, LNP-S, PF, kimberly-sucrose, 30 mcg/0.3 mL 3 completed DANYA Woodson MD [facility] 01/29/2025 15:02:37 Influenza, split virus, quadrivalent, PF 3 completed DANYA Woodson MD [facility] 01/29/2025 15:02:38 Influenza, split virus, quadrivalent, preservative 0 completed DANYA Woodson MD [facility] 01/29/2025 15:02:37 Influenza, split virus, quadrivalent, preservative 9 completed DANYA Woodson MD [facility] 01/29/2025 15:02:37 Influenza, MDCK, quadrivalent, PF 8 [facility] 01/29/2025 15:02:37 zoster recombinant 2 completed DANYA Woodson MD 01/29/2025 15:02:37 meningococcal ACWY, unspecified formulation 9 completed DANYA Woodson MD 01/29/2025 15:02:37 MMR 1 completed DANYA Woodson MD [facility] 01/29/2025 15:02:37 meningococcal conjugate quadrivalent, MenACWY-TT (MCV4) 4 completed DANYA Woodson MD [facility] 01/29/2025 15:02:37 Vaccinia, smallpox Mpox vaccine live, PF, SQ or ID injection 2 completed DANYA Woodson MD 01/29/2025 15:02:37 Vaccinia, smallpox Mpox vaccine live, PF, SQ or ID injection 2 completed DANYA Woodson MD [facility] 01/29/2025 15:02:37 COVID-19, mRNA, LNP-S, PF, 30 mcg/0.3 mL dose 1 completed DANYA Woodson MD [facility] 01/29/2025 15:02:37 COVID-19, mRNA, LNP-S, PF, 30 mcg/0.3 mL dose 1 completed DANYA Woodson MD [facility] 01/29/2025 15:02:37 COVID-19, mRNA, LNP-S, bivalent, PF, 30 mcg/0.3 mL dose 2 completed DANYA Woodson MD [facility] 01/29/2025 15:02:37 COVID-19, mRNA, LNP-S, PF, 50 mcg/0.5 mL 4 completed DANYA Woodson MD [facility] 01/29/2025 15:02:37 pneumococcal polysaccharide PPV23 6 completed DANYA Woodson MD [facility] 01/29/2025 15:02:37 pneumococcal polysaccharide PPV23 7 completed DANYA Woodson MD [facility] 01/29/2025 15:02:37 pneumococcal polysaccharide PPV23 1 completed DANYA Woodson MD [facility] 01/29/2025 15:02:37 pneumococcal polysaccharide PPV23 4 completed DANYA Woodson MD [facility] 01/29/2025 15:02:37 Tdap 9 completed DANYA Woodson MD [facility] 01/29/2025 15:02:37 Tdap 1 completed DANYA Woodson MD [facility] 01/29/2025 15:02:37 Pneumococcal conjugate PCV 13 6 completed DANYA Woodson MD [facility] 01/29/2025 15:02:37 Pneumococcal conjugate PCV 13 6 completed DANYA Woodson MD [facility] 01/29/2025 15:02:37 Pneumococcal conjugate PCV 13 6 completed DANYA Woodson MD [facility] 01/29/2025 15:02:37 Influenza, split virus, trivalent, preservative 4 completed DANYA Woodson MD [facility] 01/29/2025 15:02:37 Influenza, split virus, trivalent, preservative 0 completed DANYA Woodson MD [facility] 01/29/2025 15:02:38 Influenza, split virus, trivalent, PF 6 completed Monica Anna null, DANYA MARCELO MD [facility] 01/29/2025 15:02:38 HPV, quadrivalent 4 completed Monica Anna null, DANYA MARCELO MD [facility] 01/29/2025 15:02:38 HPV, quadrivalent 3 completed Monica Anna null, DANYA MARCELO MD [facility] 01/29/2025 15:02:38 Td (adult), 2 Lf tetanus toxoid, preservative free, adsorbed 1 completed Monica Anna null, DANYA MARCELO MD [facility] 01/29/2025 15:02:38 Hep B, adult 3 completed Monica Anna null, DANYA MARCELO MD [facility] 01/29/2025 15:02:38 Hep B, adult 6 completed Monica Anna null, DANYA MARCELO MD [facility] 01/29/2025 15:02:38 Hep B, adult 6 completed Monica Anna null, DANYA MARCELO MD [facility] 01/29/2025 15:02:38 Hep B, adult 3 completed Monica Anna null, DANYA MARCELO MD [facility] 01/29/2025 15:02:38 Hep B, adult 6 completed Monica Anna null, DANYA MARCELO MD [facility] 01/29/2025 15:02:38 Hep B, adult 2 completed Monica Anna null, DANYA MARCELO MD [facility] 01/29/2025 15:02:38 Hep A, ped/adol, 2 dose 3 completed Monica Anna null, DANYA MARCELO MD [facility] 01/29/2025 15:02:38 Hep A, ped/adol, 2 dose 2 completed Monica Anna null, DANYA MARCELO MD [facility] 01/29/2025 15:02:38 Influenza, split virus, quadrivalent, PF 6 completed DANYA Woodson MD [facility] 01/29/2025 15:02:38 Influenza, split virus, quadrivalent, PF 0 completed DANYA Woodson MD [facility] 01/29/2025 15:02:38 Influenza, split virus, quadrivalent, PF 1 completed DANYA Woodson MD [facility] 01/29/2025 15:02:38 Influenza, split virus, quadrivalent, PF 2 completed DANYA Woodson MD [facility] 01/29/2025 15:02:38 Influenza, MDCK, trivalent, PF 4 completed DANYA Woodson MD [facility] 01/29/2025 15:02:38 Past Encounters Encounter ID Performer Location Encounter Start Date Encounter Closed Date Diagnosis/Indication Diagnosis SNOMED-CT Code Diagnosis ICD10 Code Diagnosis IMO Codes Diagnosis Note [id number] Eladio Marcelo MD Main Office [address] [place] [address] 03/30/2023 09:08:56 03/30/2023 10:13:08 Human immunodeficiency virus infection [id number] B20 HIV Continue Triumeq 1 tab po qd. compliance reviewed to keep viral suppressio n, prevent viral transmissi on and prevent resistance . pt aware of new regimens and clinical trial opportunit ies with long acting agents and monoclonal AB. aware of 2 drug regimens labs 05/2023: CD4/HIV VL, STI Panel, HCV ab, HBV sag, RPRU=U.pt aware of PreP availabili ty Plan of care reveiewed Questions and concerns addressed. Chronic ki dney disease [id number] N18.9 f/uCKD. stable. hydration. avoid NSAIDS f/u renal [id number] Eladio Marcelo MD Main Office [address] [place] [address] 06/30/2023 10:16:26 06/30/2023 11:28:15 Human immunodeficiency virus infection [id number] B20 HIV Continue Triumeq 1 tab po qd. compliance reviewed to keep viral suppressio n, prevent viral transmissi on and prevent resistance . pt aware of new regimens and clinical trial opportunit ies with long acting agents and monoclonal AB. aware of 2 drug regimens labs 05/2023: CD4/HIV VL, STI Panel, HCV ab, HBV sag, RPRU=U.pt aware of PreP availabili ty Plan of care reveiewed Questions and concerns addressed. Chronic ki dney disease [id number] N18.9 f/uCKD. stable. hydration. 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 Chronic ki dney disease [id number] N18.9 f/uCKD. stable. hydration. avoid NSAIDS f/u renalDovat o has no impact on real GFR Mitral valve prolapse 40 [id number] I34.1 cardiac rehabrepai red 08/2022 [id number] Eladio Marcelo MD Main Office [address] [facility] [place] [address] 01/02/2024 11:47:43 01/02/2024 12:24:53 Human immunodeficiency virus infection [id number] B20 HIVContinu e DOvato 1 tab po qdDovato is a 2 drug regimen w 3tc and tivicay.to call with [employer] ep supplement s 6 hours apart from Dovato; take dovato w foodlU=U.p t aware of PreP availabili tydeclines GC/chlamyd ia todayQuest ions and concerns addressed. Chronic ki dney disease [id number] N18.9 f/uCKD. stable. hydration. avoid NSAIDS f/u renalDovat o has no impact on real GFR Pigmented skin lesion of uncertain nature 945157236 L81.9 f/u biopsy report ? basal cell; Pt reports PCP referred for excision procedureb acterial/f ungal swab obtained Exposure t o sexually transmissible disorder 959151541 Z20.2 DoxyPeP. pt interested in Doxycyclin e for prevention of bacterial STI's. Instructio ns on correct use reviewed. no more than 2 doses per day. condom use reviewed. pt aware of PreP availabili ty Change doxycyclin e hyclate 100 mg capsule from TAKE 2 CAPSULES BY MOUTH WITHIN 24-72 HRS AFTER CONDOMLESS SEX. t [id number] Eladio Marcelo MD Main Office [address] [place] [address] 04/23/2024 14:46:40 04/23/2024 15:08:04 Human immunodeficiency virus infection 13746830 B20 HIVContinu e DOvato 1 tab po qdkeep supplement s 6 hours apart from Dovato; take dovato w foodpt aware of U=U.pt aware of PreP availabili tydeclines 3 site testing GC/chlamyd ia todayQuest ions and concerns addressed. Chronic ki dney disease [id number] N18.9 f/uCKD. stable. hydration. avoid NSAIDS f/u renalDovat o has no impact on real GFR [id number] Eladio Marcelo MD Main Office [address] [place] [address] 09/27/2024 14:57:13 09/27/2024 15:29:41 Human immunodeficiency virus infection 58011200 B20 HIVContinu e DOvato 1 tab po qdkeep supplement s 6 hours apart from Dovato; take dovato w foodpt aware of U=U.pt aware of PreP availabili tyHAV vaccine prescribed .F/U 2 months for Anal PAP; if abnormal, will refer to ano/rectal surgeonQue stions and concerns addressed. Chronic ki dney disease 373025872 N18.9 f/uCKD. stable. hydration. avoid NSAIDS f/u renalDovat o has no impact on real GFR Suspected clinical finding [id number] Z20.2 [id number] DoxyPeP. pt interested in Doxycyclin e for prevention of bacterial STI's. Instructio ns on correct use reviewed. no more than 2 doses per day. condom use reviewed. GC/chlamyd ia obtained: pharyngeal pt aware of PreP availabili ty doxycyclin e hyclate 100 mg capsule from TAKE 2 CAPSULES BY MOUTH WITHIN 24-72 HRS AFTER CONDOMLESS SEX. t [id number] Eladio Marcelo MD Main Office [address] [place] [address] 11/27/2024 13:37:10 11/27/2024 14:16:39 Human immunodeficiency virus infection 12446404 B20 HIVContinu e DOvato 1 tab po qdHep A vaccine givenAnal PAP performed; if abnormal, will refer to ano/rectal surgeonQue stions and concerns addressed. Chronic ki dney disease 488622055 N18.9 f/uCKD. stable. hydration. avoid NSAIDS f/u renalDovat o has no impact on real GFR Suspected clinical finding 615022892 Z20.2 [id number] DoxyPeP. pt interested in Doxycyclin e for prevention of bacterial STI's. Instructio ns on correct use reviewed. no more than 2 doses per day. condom use reviewed. GC/chlamyd ia obtained: pharyngeal pt aware of PreP availabili ty doxycyclin e hyclate 100 mg capsule from TAKE 2 CAPSULES BY MOUTH WITHIN 24-72 HRS AFTER CONDOMLESS SEX. t Abnormal a nal Papanicolaou smear 634621413 R85.619 156470 anal pap: sampling obtained. PAP performed. no rectal bleeding or discharged oes have issues with hemorrhoid s and occasional strain w/ stool-prep aration H suggested Anal warts [id number] A63 .0 691552 cryosurger y: one wart treated today left buttock skin 9oclock position to rectumalda ra prescribed for ongoing anal warts- aware to apply after original wart treated falls offkeep area clean and dry- use only soap and water [id number] Eladio Marcelo MD Main Office [address] [place] [address] 01/29/2025 14:46:39 01/29/2025 15:27:44 Human immunodeficiency virus infection 86611421 B20 HIVContinu e Dovato 1 tab po qdkeep supplement s 6 hours apart from Dovato; take dovatopt aware of U=U; pt aware of PreP availabili tyflu vaccine.Qu estions and concerns addressed. Chronic ki dney disease 676262604 N18.9 f/uCKD. stable. hydration. avoid NSAIDS f/u renalDovat o has no impact on real GFR Eruption 709662642 R21 642509 zyrtec daily PRNhydroco rtisone topical cream Abnormal a nal Papanicolaou smear 961687309 R85.809 690495 anal pap: sampling obtained; PAP performed. no rectal bleeding or discharged oes have issues with hemorrhoid s and occasional strain w/ stool-prep aration H suggested History of urinary tract infection [id number] 107 Z87.938 [id number] recent E Coli infection s/p hospitaliz ation 2nd kidney stones.f/u Kidney doctor.hyd rationsupp ression tx reviewed with pt in Health Concerns Section Related Observation LastModified by Organization Detai ls LastModified Time None Recorded Concern Status LastModified by Organization Details LastModified Time None Recorded Advance Directives Directive None Recorded Payers Insurance Date Sequence Insurance Name Policy Number Policy Aceves Covered Member ID Aceves Member ID Guarantor Name 03/28/2023 1 [facility] ([facility] [id number] Nadege Myers [id number] Nadege Myers 03/28/2023 2 [facility] (MEDICAID REPLACEMENT - HMO) [id number] Nadege Myers [id number] Nadege Myers 01/27/2025 1 [facility] (MEDICAID HMO) [id number] Nadege Myers [id number] Nadege Myers Notes Date Note Type Note Provider Name and Address Organization Details Recorded Time 01/02/2024 text/html ROS as noted in the HPI HIVs/P Triumeqon DOvato 1 tab po qd; started about one month agono side effectsno new medsreports compliance.12/2023 HIV VL nondetected; AST/ALT wnl;RPR NR; JZ6=39743/4 HIV VL nondetected01/2023 HIV VL nondeteted; QB2=502; eGFR=39;HBV sagneg;HCV neg;AST/ALT neg; syphillis neg06/2022 FE1=558; HIV VL nondetected; eGFR=38 stable compared to 01/2022;06/2022 HBV sagneg; HCV neg; GC/chlamydia negstable kidney function/CKD [id number] STI sx.med listno drugshad 2 skin lesions removed; waiting for biopsy reports; healing; one of them has redness around it; not ichiness. not painful Eladio Marcelo MD [address] [place] [address], [phone], DANYA MARCELO MD [facility] 01/02/2024 12:41:14 04/23/2024 text/html ROS as noted in the HPI HIVon DOvato 1 tab po qdcompliantmed list rveiewedno concernsno side effectsno new medsno recent labs; reports had some last month with PCP; HgB elevated in 18 range; PCP followingnonsmoker; not on testosterone replacement. no new meds. no SOB; no CP; hx CKD 12/2023 HIV VL nondetected; AST/ALT wnl;RPR NR; ZS1=80004/4 HIV VL nondetected01/2023 HIV VL nondeteted; YT1=414; eGFR=39;HBV sagneg;HCV neg;AST/ALT neg; syphillis negstable kidney function/CKD [id number] STI sx.med listhad flu , meningitis vaccine, and COVID19 vaccine. nasal allergies has a prescription fod DOxypep(Doxycycline) PRN for STI prevention. gained about 5 pounds.nasal allrgies. feels ok otherwise. declines tx. no malaise. no cough Eladio Marcelo MD [address] [place] [address], [phone], DANYA MARCELO MD [facility] 04/23/2024 16:40:26 09/27/2024 text/html ROS as noted in the HPI HIVon DOvato 1 tab po qdcompliant med list reviewedno concernsno side effectsno new meds ; med list reviewed.HgB elevated in 18 rangeCKD; nonsmoker; not on testosterone replacement.no new meds. no SOB; no CP; hx CKDstable kidney function/CKD eGFR30 nasal allergieshas a prescription food DOxypep(Doxycycline) PRN for STI prevention; has used several times; no STI sx. no fever. no discharge. no rash. got the [id number] ; got RSV vaccine. will travel to [place].Working.had labs done 2 days ago; pending results. missed last appointment with Dr Diaz for hx abnormal anal PAP. Dr Null retired. 12/2023 HIV VL nondetected; AST/ALT wnl;RPR NR; PQ8=82040 HIV VL nondetected01/2023 HIV VL nondeteted; PH6=949; eGFR=39;HBV sagneg;HCV neg;AST/ALT neg; syphillis neg Eladio Marcelo MD [address] [place] [address], [phone], [facility] ELADIO MARCELO MD [facility] 09/27/2024 20:03:17 11/27/2024 text/html ROS as noted in the HPI HIV on DOvato 1 tab po qd compliant med list reviewed no concerns no side effects no new meds ; med list reviewed. HgB elevated in 18 range CKD; nonsmoker; not on testosterone replacement. no new meds. no SOB; no CP; hx CKD stable kidney function/CKD eGFR30 has a prescription food DOxypep(Doxycycline) PRN for STI prevention; has used several times; no STI sx. no fever. no discharge. no rash. reports rectal discomfort- feels warts are bothering him-cryosurgery performed as well as anal pap 09/2024- AST/ALT- nl, RPR - NR, creatinine 2.11. eGFR- 35-( H/O kidney dz) Urine- nl, genosure archive- not processed. HIV RNA- <20- nondetected, cbc- h/h18.5/54.7 mcv-101, plt- 14312/2023 HIV VL nondetected; AST/ALT wnl;RPR NR; EO6=2217 10/2023 HIV VL nondetected 01/2023 HIV VL nondetected; IR3=745; eGFR=39;HBV sagneg;HCV neg;AST/ALT neg; syphillis neg Eladio Marcelo MD [address] [place] [address], [phone], DANYA MARCELO MD [facility] 11/27/2024 17:37:46 01/29/2025 text/html ROS as noted in the HPI HIVon DOvato 1 tab po qdcompliant med list reviewedno concernsno side effectsno new meds ; med list reviewed.CKD; nonsmoker; not on testosterone replacement.stable kidney function/CKD [id number] a prescription food DOxypep(Doxycycline) PRN for STI prevention; has used several times; no STI sx. no fever. no discharge. no rash.got the EhlULFv12 ; got RSV vaccine. pt got hospitalized with kidney stones and UTI w E coli. treated w Ertapenem and recovered.no UTI sx. hx recurrent kidney stones.developed constipation which is improved. will get repeat ANAL PAP; there was problems with ;last sample, and was not processedhas had abnormal anal PAP in the past; his provider Dr Diaz retired. 09/2024 AST/ALt wnl;eGFR=35; HIV RNA nondtected;12/2023 HIV VL nondetected; AST/ALT wnl;RPR NR; FD2=05458/2023 HIV VL nondetected01/2023 HIV VL nondeteted; WZ1=834; eGFR=39;HBV sagneg;HCV neg;AST/ALT neg; syphillis neg Eladio Marcelo MD [address] [place] [address], [phone], DANYA AMRCELO MD [facility] 01/31/2025 13:47:41
--- OUTSIDE RECORDS SUMMARY | 2025-02-18 16:59 | XMS_ITS | Clinical Summary ---
Author Organization [facility] Address [address] [place] [address] Phone Care Team Providers Care Photo Checker And Assembler Name Role Phone Di Redman MD Primary Care Provider Allergies Active Allergy Reactions Criticality Noted Date Comments Fluticasone-Salmeterol Other (see comments) Lisinopril Other (see comments) 04/17/2021 Sulfa Antibiotics Other (see comments) 09/11/19 14 Other reaction(s): seizures Medications Triumeq 600-50-300 MG per tablet 1 Active losartan (COZAAR) 25 MG tablet Take 1 tablet (25 mg total) by mouth 1 (one) time each day 90 tablet 3 2 Active Additional Information Patient taking differently: 50 mgOral Daily, Reported on 09/09/2022 tadalafil (CIALIS) 20 MG tablet Take 20 mg by mouth 1 (one) time each day if needed 2 Active Active Problems Problem Noted Date Diagnosed Date Mitral valve prolapse 09/09/2022 Chronic kidney disease stage 3 03/06/2021 Proteinuria 03/06/2021 Renal stone 03/06/2021 Ureteric stone 08/21/2020 Overview (09/09/2022): Last Assessment & Plan: Stone retrieval and stenting successful. Will need outpatient lithotripsy for the remaining stones. Plan observe overnight. Convert narcotic analgesia to oral Dilaudid if needed. If pain-free in the morning and creatinine improving, can be discharged Human immunodeficiency virus infection 1 Overview (09/09/2022): Last Assessment & Plan: -Patient is on Biktarvy at home which is not formulary, hopefully family can bring this in from home Mixed hyperlipidemia 09/21/2017 Immunizations Immunization Administration Dates Next Due HPV, Quadrivalent 06/22/2013,05/04/2013 Hep A, 2 Dose 11/13/2002,05/08/2002 Hepatitis B 04/14/2016, 6,08/28/2015,11/13,06/27/2002,05/08/2002 Influenza (IM) Preservative Free 04/14/2016 Influenza, MDCK, PF, Quadrivalent 06/14/2017 Influenza, Quadrivalent, Pre servative Free 03/10/2022,02/10/2021,01/14/2020, Influenza, Quadrivalent, Wit h Preservative 01/24/2020,02/27/2019 Influenza, Unspecified 06/01/2013,03/27/2010 MMR 12/27/1990 Meningococcal, Unspecified 06/27/2018 Pfizer SARS-COV-2 02/10/2022,,07/31/2020,07/10 Pneumococcal Conjugate 13-Valent 08/28/2015,07/14,07/15/2015 Pneumococcal Polysaccharide 07/08/2016,0 02/01/2014,05/16/2005,12/27 Shingrix 03/24/2022,12/05/2021 Smallpox 01/13/2022,12/16/2021 Td 12/27/1990 Tdap 02/24/2021,10/27/2018 Family History Medical History Relation Comments Heart disease Father hypertrophic car sd myopathy Hypertension Father Heart disease Mother Relation Status Comments Father Unknown Mother Unknown Social History Tobacco Use Types Packs/Day Years Used Date Smoking Tobacco: Never Smokeless Tobacco: Never Alcohol Use Standard Drinks/Week Comments Yes 0 (1 standard drink = 0.6 oz pure alcohol) Alcoholic Drinks/day: Occasional social drink Sex and Gender Information Value Date Recorded Sex Assigned at Not on file Legal Sex Male 5:14 PM EST Gender Identity Not on file Sexual Orientation Not on file Last Filed Vital Signs Vital Sign Reading Time Taken Comments Blood Pressure 139/60 09/09/2022 1:25 PM EDT Pulse 87 09/09/2022 1:25 PM EDT Temperature - - Respiratory Rate - - Oxygen Saturation 98% 09/09/2022 1:25 PM EDT Inhaled Oxygen Concentration - - Weight 78.7 kg (173 lb 6.4 oz) 09/09/2022 1:25 P M EDT Height 177.8 cm (5' 10 ) 01/19/2019 12:00 PM EDT Body Mass Index 24.88 01/19/2019 12:00 PM EDT Plan of Treatment Health Maintenance Due Date Last Done Comments Colorectal Cancer Screening: Annual FOBT 2013 Colorectal Cancer Screening: Colonoscopy 2013 Colorectal Cancer Screening: Sigmoidoscopy 2013 Pneumococcal Vaccine: 50+ Ye ars (4 of 4 - PCV20 or PCV21) 07/08/2021 07/08/2016, 08/28/2015, 07/30/2015, Additional history exists Hepatitis B Vaccine (1 of 3 - Risk 3-dose series) 2024 04/14/2016, 09/29/2015, 08/28/2015, Additional history exists Influenza Vaccine (#1) 2025 2, 02/10/2021, 01/24/2020, Additional history exists Pneumococcal Vaccine: Peds ( 0 to 5 Years) and At-Risk Patients (6 to 49 Years) Discontinued 07/08/2016, 08/28/2015, 07/30/2015, Additional history exists Insurance Medicaid [facility] Medicaid Care Teams Photo Checker And Assembler Relationship Specialty Start Date End Date Di Redman MD [address] [address] PCP - General Family Medicine 10/15/21
== END 2025-02-18 14:55 | disposition home or self-care (01) ==
LOC: HO.HKA 14:33
PROVIDERS: PCP Family Medicine; Visit Provider Internal Medicine Hypertension Specialist
DX: N18.30 Chronic kidney disease, stage 3 unspecified (principal)
CPT/HCPCS: 99214

== ENCOUNTER → 2025-02-18 14:32 | Outpatient (BNVA) | payer OTHER, SELFPAY | PROVIDERS: PCP Family Medicine; Visit Provider Internal Medicine Hypertension Specialist | DX: N18.30 Chronic kidney disease, stage 3 unspecified (principal); B20 Human immunodeficiency virus [HIV] disease; N20.0 Calculus of kidney | CPT/HCPCS: 99212 ==